=== PATIENT | male | born 1930 | race Caucasian/White ===

== ENCOUNTER 2016-06-01 12:43 | Emergency (ER) | payer MEDICARE ==
[~2016-06-01] VITALS: Ht 177.8 cm; Wt 86.2 kg
[~2016-06-01 12:43] MED LIST: ASP81TEC PO; ATOR80TA2 PO; ATR20T PO; CEFU500T34 PO; CLOP75TA PO; CPR500T PO; LACT1CAP8 PO; LISI-594 PO; LISI2.5T PO; LOVA20TA2 PO; LSNP10T PO; METO25TA2 PO; NIAC1CAP PO; NIAC500T6 PO; NITR0.3T6 SL; NTR.4SL SL; OXYC-12 PO; [UNRECOGNIZED DRUG - OTHER] PO
--- NOTE | 2016-06-01 13:03 | ED Upper Extremity ---
General Chief Complaint: Upper Extremity Stated Complaint: RIGHT ARM SKIN TEAR Source: patient Exam Limitations: no limitations History of Present Illness Time seen by provider: 13:01 Initial Comments to ER with a skin tear to the dorsal aspect of the right arm. States that he was working out at a golfing shed when he almost fell but put his arm out to catch him and in doing so for the skin on the back of his arm. He did not fall. Onset: just prior to arrival Severity: mild Pain/Injury Location: right arm Method of Injury: other Allergies and Home Medications Allergies Coded Allergies: No Known Drug Allergies (Unverified , 12/05/10) Home Medications Aspirin 81 Mg Tabec 81 MG PO DAILY (Reported) HOLD THIS MED TODAY!! RESTART THIS MED Saturday02/12/13 Clopidogrel Bisulfate 75 Mg Tablet 75 MG PO DAILY (Reported) Lisinopril 10 Mg Tab 10 MG PO DAILY (Reported) Lovastatin 20 Mg Tablet 20 MG PO DAILY WITH SUPPER (Reported) Metoprolol Tartrate 25 Mg Tablet 25 MG PO BID (Reported) Niacin/Inositol Niacinate 1 Each Capsule 500 MG PO HS (Reported) Nitroglycerin 0.4 Mg Tab 0 SL PRN (Reported) 1 TAB EVERY 5 MINUTES X 3 DOSES NEEDED FOR CHEST PAIN Constitutional: see HPI EENTM: see HPI Respiratory: no symptoms reported Cardiovascular: no symptoms reported Genitourinary: no symptoms reported Musculoskeletal: no symptoms reported Skin: see HPI Psychiatric/Neurological: No Symptoms Reported Past Ggpjudo-Czgoqq-Rctiuj Hx Patient Social History Alcohol Use: Denies Use Recreational Drug Use: No Smoking Status: Never a Smoker Former Smoker/When Quit: Apr 15, 1968 2nd Hand Smoke Exposure: No Recent Foreign Travel: No Contact w/Someone Who Travel: No Recent Hopitalizations: No Immunizations Up To Date Tetanus Booster (TDap): Less than 5yrs Date of Pneumonia Vaccine: Jan 13, 2012 Date of Influenza Vaccine: Dec 15, 2012 Seasonal Allergies Seasonal Allergies: No Surgeries HX Surgeries: Yes Surgeries: Coronary Stent, Defibrillator, Gallbladder, Pacemaker Respiratory Hx Respiratory Disorders: No Cardiovascular Hx Cardiac Disorders: Yes Cardiac Disorders: Coronary Artery Disease, Heart Attack, Hypertension Neurological Hx Neurological Disorders: Yes Neurological Disorders: Vertigo Reproductive System Hx Reproductive Disorders: No Genitourinary Hx Genitourinary Disorders: No Gastrointestinal Hx Gastrointestinal Disorders: No Musculoskeletal Hx Musculoskeletal Disorders: No Endocrine Hx Endocrine Disorders: No HEENT HX ENT Disorders: No Cancer Hx Cancer: No Psychosocial Hx Psychiatric Problems: No Integumentary HX Skin/Integumentary Disorder: No Blood Transfusions Hx Blood Disorders: No Physical Exam Vital Signs Capillary Refill : General Appearance: WD/WN no apparent distress HEENT: PERRL/EOMI normal ENT inspection Neck: non-tender full range of motion Respiratory: no respiratory distress no accessory muscle use Gastrointestinal: normal bowel sounds non tender Shoulder: normal inspection non-tender Elbow/Forearm: non-tender, Right (superficial skin tear without tenderness to the dorsal aspect of the right arm about 3 cm in length closed with Mastisol and Steri-Strips then covered with nonadherent gauze and a gauze roll) Hand: normal inspection, non-tender, Right Neurologic/Psychiatric: alert normal mood/affect oriented x 3 Skin: normal color warm/dry Laceration Repair : Suture Size: 5-0 Departure Pneumonia Admission Notes Tetanus is up-to-date within the past 5-10 years she states. Impression Impression: Primary Impression: Skin tear Disposition: 01 HOME, SELF-CARE Condition: Stable Departure-Patient Inst. Decision time for Depature: 13:03 Referrals: LAURI MORRELL MD (PCP/Family) Primary Care Physician Patient Instructions: NO INSTRUCTIONS GIVEN Add. Discharge Instructions: 1. Return to ER for any concerns 2. Take the bandage off tomorrow leaving the Steri-Strips in place until they fall off on their own in about a week 3. Return to ER for any concerns All discharge instructions reviewed with patient and/or family. Voiced understanding. SAMANTHA BOBBY APRN Jun 01, 2016 13:03
[2016-06-01 13:54] VITALS: BP 110/70
== END 2016-06-01 13:54 | disposition home or self-care (01) ==
LOC: EDUNIT# 12:43 → ER 12:48
DX: S41.111A Laceration without foreign body of right upper arm, initial encounter (principal); I25.10 Atherosclerotic heart disease of native coronary artery without angina pectoris; I10 Essential (primary) hypertension; Z79.82 Long term (current) use of aspirin; Z79.02 Long term (current) use of antithrombotics/antiplatelets; Z79.899 Other long term (current) drug therapy; Z95.810 Presence of automatic (implantable) cardiac defibrillator; Z95.5 Presence of coronary angioplasty implant and graft; W45.8XXA Other foreign body or object entering through skin, initial encounter; Y92.39 Other specified sports and athletic area as the place of occurrence of the external cause; Y99.8 Other external cause status

== ENCOUNTER 2017-06-21 15:18 | Emergency (ER) | payer MEDICARE ==
[~2017-06-21] VITALS: Ht 180.3 cm; Wt 90.7 kg
[2017-06-21] MEDS ORDERED: ONDANSETRON 4 MG/2 ML (SDV) Z0FRAN ONE (15:26)
[2017-06-21 15:34] LABS: BASOPHILS % (AUTO) 0 % (0-10); EOSINOPHILS % (AUTO) 0 % (0-10); HEMATOCRIT 40 % (40-54); HEMOGLOBIN 14.1 G/DL (13.3-17.7); LYMPHOCYTES # (AUTO) 1.3 X 10^3 (1.0-4.0); LYMPHOCYTES % (AUTO) 12 % (12-44); MEAN CORPUSCULAR HEMOGLOBIN 33 PG (25-34); MEAN CORPUSCULAR HGB CONC 35 G/DL (32-36); MEAN CORPUSCULAR VOLUME 94 FL (80-99); MEAN PLATELET VOLUME 8.7 FL (7.4-10.4); MONOCYTES # (AUTO) 0.8 X 10^3 (0.0-1.0); MONOCYTES % (AUTO) 7 % (0-12); NEUTROPHILS # (AUTO) 9.4 X 10^3 (1.8-7.8); NEUTROPHILS % (AUTO) 81 % (42-75); PLATELET COUNT 177 10^3/uL (130-400); RED BLOOD COUNT 4.24 10^6/uL (4.35-5.85); RED CELL DISTRIBUTION WIDTH 13.1 % (10.0-14.5); WHITE BLOOD COUNT 11.7 10^3/uL (4.3-11.0)
--- NOTE | 2017-06-21 15:36 | ED Head Injury ---
General Stated Complaint: FALL/HEAD INJ Source: patient Exam Limitations: no limitations History of Present Illness Date Seen by Provider: Jun 21, 2017 Time Seen by Provider: 15:33 Initial Comments Brought to ER by his son with whom he lives with reports of being covered in blood. Patient had been out in the shop according to son when the son noticed that he had been out there for 2 long. He went out to check on Rico when Rico came pulling up a golf cart with his head covered in blood. Unknown what happened but Rico does not recall anything, he does not know where he is at currently. Large hematoma just above the left eye, GCS 13. He is on aspirin and Plavix. Occurred: this evening Severity: moderate Method of Injury: unknown Loss of Consciousness: no loss of consciousness Allergies and Home Medications Allergies Coded Allergies: No Known Drug Allergies (Unverified , 12/05/10) Home Medications Aspirin 81 Mg Tabec, 81 MG PO DAILY, (Reported) HOLD THIS MED TODAY!! RESTART THIS MED Saturday02/12/13 Clopidogrel Bisulfate 75 Mg Tablet, 75 MG PO DAILY, (Reported) Lisinopril 10 Mg Tab, 10 MG PO DAILY, (Reported) Lovastatin 20 Mg Tablet, 20 MG PO DAILY WITH SUPPER, (Reported) Metoprolol Tartrate 25 Mg Tablet, 25 MG PO BID, (Reported) Niacin/Inositol Niacinate 1 Each Capsule, 500 MG PO HS, (Reported) Nitroglycerin 0.4 Mg Tab, 0 SL PRN, (Reported) 1 TAB EVERY 5 MINUTES X 3 DOSES NEEDED FOR CHEST PAIN Patient Home Medication List Home Medication List Reviewed: Yes Constitutional: see HPI Eyes: No Symptoms Reported Ears, Nose, Mouth, Throat: no symptoms reported Respiratory: no symptoms reported Cardiovascular: no symptoms reported Genitourinary: no symptoms reported Musculoskeletal: no symptoms reported Skin: no symptoms reported Psychiatric/Neurological: No Symptoms Reported Endocrine: No Symptoms Reported Hematologic/Lymphatic: No Symptoms Reported Past Lnvqdnn-Uciaba-Rimpmt Hx Patient Social History 2nd Hand Smoke Exposure: No Recent Foreign Travel: No Contact w/Someone Who Travel: No Recent Hopitalizations: No Immunizations Up To Date Tetanus Booster (TDap): Less than 5yrs Date of Pneumonia Vaccine: Jan 13, 2012 Date of Influenza Vaccine: Dec 15, 2012 Seasonal Allergies Seasonal Allergies: No Surgeries Surgeries: Coronary Stent, Defibrillator, Gallbladder, Pacemaker Cardiovascular Cardiac Disorders: Coronary Artery Disease, Heart Attack, Hypertension Neurological Neurological Disorders: Vertigo Reproductive System Hx Reproductive Disorders: No Physical Exam Vital Signs Vital Signs - First Documented 06/21/17 15:35 Temp 97.6 Pulse 99 Resp 17 B/P (MAP) 154/73 (100) Pulse Ox 99 Capillary Refill : General Appearance: WD/WN, no apparent distress HEENT: PERRL/EOMI, normal ENT inspection, other (there is a large hematoma over the left eyebrow. Small skin tear without active bleeding at this time. Pupils are equal.) Neck: non-tender, full range of motion Cardiovascular: regular rate, rhythm, no murmur Respiratory: normal breath sounds, no respiratory distress, no accessory muscle use Gastrointestinal: normal bowel sounds, non tender, soft Extremities: normal range of motion, non-tender Psychiatric: alert, oriented x 3 Crainal Nerves: normal hearing, normal speech, PERRL Skin: normal color, warm/dry [place] Coma Score Best Eye Response: (3) Open to Voice Best Verbal Response: (4) Confused Conversation Best Motor Response: (6) Obeys Commands [place] Total: 13 Laceration Repair : Suture Size: 5-0 Progress/Results/Core Measures Results/Orders Lab Results My Orders Medications Given in ED Vital Signs/I&O Diagnostic Imaging Diagonstic Imaging: CT Comments RICO BLAIR MED REC#: [id number] PT STATUS: REG ER : 1930 PHYSICIAN: SAMANTHA QUILES APRN ADMIT DATE: 06/21/17/ER Draft Date of Exam:06/21/17 CT HEAD/CERVICAL SPINE WO PROCEDURE: CT head and CT cervical spine without contrast. TECHNIQUE: Multiple contiguous axial images were obtained through the brain and cervical spine without the use of intravenous contrast. Sagittal and coronal reformations through the cervical spine were then performed. INDICATION: Fall. Left frontal hematoma. COMPARISON: 08/25/13. FINDINGS: CT head: There is a large left frontal subcutaneous hematoma. No acute skull fracture. There is a 5 x 5 mm hyperdense focus along the right posterior margin of the midbrain which is new since prior examination and may represent a small focus of intracranial hemorrhage. It is difficult to fully ascertain if this is intraparenchymal or within the basilar cisterns. No additional foci of intracranial hemorrhage. CT cervical spine: No acute fracture or traumatic malalignment. Multilevel degenerative disc disease is present. No high-grade spinal stenosis. There is tczm-fu-zkvnlaof spinal stenosis at C5-C6 due to disc bulge and ligamentum flavum thickening. No cervical lymphadenopathy. Thyroid is normal. IMPRESSION: 1. Small focus of acute intracranial hemorrhage along the right posterolateral aspect of the midbrain. It is difficult to ascertain if this is intra-axial or extra-axial in position. A followup CT head in the next 24 hours is advised to assess stability. 2. Large left frontal scalp hematoma. No skull fracture. 3. No acute fracture or malalignment in the cervical spine. Findings were called to Samantha Quiles by Dr. Lam Jacques at 4:24 PM on 06/21/2017. Dictated on workstation # [id number] Dict: 06/21/17 1612 Trans: 06/21/17 1628 NATANAEL [id number] Interpreted by: LAM JACQUES MD Electronically signed by: NAME: RICO BLAIR MED REC#: [id number] PT STATUS: REG ER : 1930 PHYSICIAN: SAMANTHA QUILES BAGGAGE SCREENER ADMIT DATE: 06/21/17/ER Draft Date of Exam:06/21/17 CHEST 1 VIEW, AP/PA ONLY PATIENT HISTORY: Altered mental status, dizziness, and nausea, found down. TECHNIQUE: Single frontal view of the chest COMPARISON: 09/13/2014 FINDINGS: Lung volumes are normal. There is stable moderate cardiomegaly. The left-sided AICD is in stable position. There are mild interstitial opacities bilaterally. No pneumothorax is seen. Degenerative changes are seen in the acromioclavicular joints bilaterally. IMPRESSION: 1. Cardiomegaly with mild interstitial edema. Dictated on workstation # [id number] Dict: 06/21/17 1624 Trans: 06/21/17 1625 CVB [id number] Interpreted by: MABLE REYES MD Electronically signed by: Departure Communication (Admissions) Progress Notes 1642- GCS 13. Blood pressure 140/80. Chest x-ray read out as interstitial edema but there is no dyspnea or shortness of breath and his oxygen saturation adequate. Cervical collar will be removed at this time. Discussed the case with [facility] was on ICU diversion. I then discussed the case with [facility] emergency room Dr. Anderson who accepted the patient. Images will be clouded Impression Impression: Primary Impression: Intracranial hemorrhage Additional Impression: Scalp hematoma Disposition: SHT-TRM HOSP Condition: Stable Departure-Patient Inst. Referrals: LAURI MORRELL MD (PCP/Family) Primary Care Physician SAMANTHA QUILES APRN Jun 21, 2017 15:36
[2017-06-21 15:41] LABS: INR 1.1 (0.8-1.4); PROTHROMBIN TIME PATIENT 13.9 SEC (12.2-14.7)
[2017-06-21 15:51] LABS: ALBUMIN 4.1 GM/DL (3.2-4.5); BILIRUBIN,TOTAL 0.7 MG/DL (0.1-1.0); CALCIUM 8.9 MG/DL (8.5-10.1); CREATININE SERUM 1.74 MG/DL (0.60-1.30); TOTAL PROTEIN 7.1 GM/DL (6.4-8.2)
[2017-06-21] MEDS ORDERED: fentaNYL INJECTION 100 MCG/2 ML AMP ONE (15:51)
[2017-06-21] MEDS ORDERED: fentaNYL INJECTION 100 MCG/2 ML AMP IVP ONE (16:00)
[2017-06-21] MEDS ORDERED: PROMETHAZINE INJ 25 MG/ML (PHENERGAN) AMP IVP ONE (16:15)
--- NOTE | 2017-06-21 16:26 | Diagnostic Imaging Report ---
PATIENT HISTORY: Altered mental status, dizziness, and nausea, found down. TECHNIQUE: Single frontal view of the chest COMPARISON: 09/13/2014 FINDINGS: Lung volumes are normal. There is stable moderate cardiomegaly. The left-sided AICD is in stable position. There are mild interstitial opacities bilaterally. No pneumothorax is seen. Degenerative changes are seen in the acromioclavicular joints bilaterally. IMPRESSION: 1. Cardiomegaly with mild interstitial edema. Dictated by: Dictated on workstation # [id number]
--- NOTE | 2017-06-21 16:29 | Diagnostic Imaging Report ---
PROCEDURE: CT head and CT cervical spine without contrast. TECHNIQUE: Multiple contiguous axial images were obtained through the brain and cervical spine without the use of intravenous contrast. Sagittal and coronal reformations through the cervical spine were then performed. INDICATION: Fall. Left frontal hematoma. COMPARISON: 08/25/13. FINDINGS: CT head: There is a large left frontal subcutaneous hematoma. No acute skull fracture. There is a 5 x 5 mm hyperdense focus along the right posterior margin of the midbrain which is new since prior examination and may represent a small focus of intracranial hemorrhage. It is difficult to fully ascertain if this is intraparenchymal or within the basilar cisterns. No additional foci of intracranial hemorrhage. CT cervical spine: No acute fracture or traumatic malalignment. Multilevel degenerative disc disease is present. No high-grade spinal stenosis. There is lseg-lz-jqpuxoij spinal stenosis at C5-C6 due to disc bulge and ligamentum flavum thickening. No cervical lymphadenopathy. Thyroid is normal. IMPRESSION: 1. Small focus of acute intracranial hemorrhage along the right posterolateral aspect of the midbrain. It is difficult to ascertain if this is intra-axial or extra-axial in location. A followup CT head in the next 24 hours is advised to assess stability. 2. Large left frontal scalp hematoma. No skull fracture. 3. No acute fracture or malalignment in the cervical spine. Findings were called to John Quiles by Dr. Lam Jacques at 4:24 PM on 06/21/2017. Dictated by: Dictated on workstation # [id number]
[2017-06-21] MEDS ORDERED: LIDOCAINE 2% 20 ML (XYLOCAINE) VIAL ONE (17:00)
[2017-06-21 17:28] VITALS: BP 158/107
--- OUTSIDE RECORDS SUMMARY | 2017-06-23 04:58 | XMS REPORT | Continuity of Care Document ---
Author Author [facility] Organization [facility] Address Unknown Phone Unavailable Allergies Active Description Code Type Severity Reaction Onset Reported/Identified Relationship to Patient Clinical Status Yes No Known Drug Allergies [id number] Drug Allergy Unknown N/A 12/05/2010 Medications There is no data. Problems Date Dx Coded Attending Type Code Diagnosis Diagnosed By 07/02/2012 Ot 272.4 HYPERLIPIDEMIA NEC/NOS 07/02/2012 Ot 276.51 DEHYDRATION 07/02/2012 Ot 401.9 HYPERTENSION NOS 07/02/2012 Ot 412 OLD MYOCARDIAL INFARCT 07/02/2012 Ot 414.01 CORONARY ATHEROSCLEROSIS OF [place] CORON 07/02/2012 Ot 558.9 NONINF GASTROENTERIT NEC 07/02/2012 Ot 584.9 ACUTE RENAL FAILURE, UNSPECIFIED 07/02/2012 Ot 780.4 DIZZINESS AND GIDDINESS 07/02/2012 Ot V15.82 HISTORY OF TOBACCO USE 07/02/2012 Ot V45.82 PERCUTANEOUS TRANSLUM CORON ANGIOPLASTY 07/15/2012 Ot 272.4 HYPERLIPIDEMIA NEC/NOS 07/15/2012 Ot 401.9 HYPERTENSION NOS 07/15/2012 Ot 410.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,OTH INFERIOR WALL,INI 07/15/2012 Ot 412 OLD MYOCARDIAL INFARCT 07/15/2012 Ot 414.01 CORONARY ATHEROSCLEROSIS OF [place] CORON 07/15/2012 Ot V15.82 HISTORY OF TOBACCO USE 07/15/2012 Ot V45.82 PERCUTANEOUS TRANSLUM CORON ANGIOPLASTY 07/18/2012 Ot 272.0 PURE HYPERCHOLESTEROLEM 07/18/2012 Ot 401.9 HYPERTENSION NOS 07/18/2012 Ot 410.42 AC MYOCRD INFRCT,OTH INFERIOR WALL,SUBSE 07/18/2012 Ot 414.01 CORONARY ATHEROSCLEROSIS OF [place] CORON 07/18/2012 Ot 780.2 SYNCOPE AND COLLAPSE 07/18/2012 Ot 780.4 DIZZINESS AND GIDDINESS 07/18/2012 Ot 873.41 OPEN WOUND OF CHEEK 07/18/2012 Ot E000.8 OTHER EXTERNAL CAUSE STATUS 07/18/2012 Ot E849.0 ACCIDENT IN HOME 07/18/2012 Ot E885.9 FALL FROM SLIPPING, TRIPPING, OR STUMBLI 07/18/2012 Ot V45.82 PERCUTANEOUS TRANSLUM CORON ANGIOPLASTY 10/16/2012 Ot 780.2 SYNCOPE AND COLLAPSE 10/27/2012 ALEXIS MOSQUEDA MD Ot 780.2 SYNCOPE AND COLLAPSE 12/16/2012 MICHAEL MYRICK FACC, LAUREN FACP CCDS Ot 272.4 HYPERLIPIDEMIA NEC/NOS 12/16/2012 MICHAEL MYRICK FACC, ALI FACP CCDS Ot 401.9 HYPERTENSION NOS 12/16/2012 MICHAEL MYRICK FACC, ALI FACP CCDS Ot 412 OLD MYOCARDIAL INFARCT 12/16/2012 MICHAEL MYRICK FACC, ALI FACP CCDS Ot 414.01 CORONARY ATHEROSCLEROSIS OF [place] CORON 12/16/2012 LAUREN RODRIGUEZ MD, FACC FACP CCDS Ot 433.10 CAROTID ARTERY OCCLUSION W O CEREBRAL IN 12/16/2012 MICHAEL MYRICK FACC ALI FACP CCDS Ot 433.30 MULT BILTRAL ARTERY OCCLUSION WO CEREBRA 12/16/2012 LAUREN RODRIGUEZ MD, FACC FACP CCDS Ot 780.4 DIZZINESS AND GIDDINESS 12/16/2012 LAUREN RODRIGUEZ MD, FACC FACP CCDS Ot 786.09 RESPIRATORY ABNORM NEC 12/16/2012 LAUREN RODRIGUEZ MD, FACC FACP CCDS Ot V45.82 PERCUTANEOUS TRANSLUM CORON ANGIOPLASTY 12/16/2012 MICHAEL MYRICK FACC ALI FACP CCDS Ot V58.63 LONG-TERM(CURRENT)USE OF ANTIPLATELET/AN 12/16/2012 LAUREN RODRIGUEZ MD, FACC FACP CCDS Ot V58.66 LONG-TERM (CURRENT) USE OF ASPIRIN 12/16/2012 MICHAEL MYRICK FACC ALI FACP CCDS Ot V58.69 OT MED,LT,CURRENT USE 02/11/2013 MICHAEL MYRICK FACC ALI FACP CCDS Ot 272.4 HYPERLIPIDEMIA NEC/NOS 02/11/2013 MICHAEL MYRICK FACC, ALI FACP CCDS Ot 401.9 HYPERTENSION NOS 02/11/2013 MICHAEL MYRICK FACC, ALI FACP CCDS Ot 412 OLD MYOCARDIAL INFARCT 02/11/2013 MICHAEL MYRICK FACC, ALI FACP CCDS Ot 414.01 CORONARY ATHEROSCLEROSIS OF [place] CORON 02/11/2013 MICHAEL MYRICK FACC ALI FACP CCDS Ot 414.8 CHR ISCHEMIC HRT DIS NEC 02/11/2013 MICHAEL MYRICK FACC, LAUREN BARRY CCDS Ot 433.10 CAROTID ARTERY OCCLUSION W O CEREBRAL IN 02/11/2013 MICHAEL MYRICK FACC, LAUREN FACP CCDS Ot 780.4 DIZZINESS AND GIDDINESS 02/11/2013 MICHAEL MYRICK FACC, LAUREN FACP CCDS Ot V53.32 FITTING ADJUST AUTOMAT IMPLANT CARDIAC 02/11/2013 LAUREN RODRIGUEZ MD, FACC FACP CCDS Ot V58.63 LONG-TERM(CURRENT)USE OF ANTIPLATELET/AN 02/11/2013 MICHAEL MYRICK FACC, LAUREN FACP CCDS Ot V58.66 LONG-TERM (CURRENT) USE OF ASPIRIN 02/11/2013 LAUREN RODRIGUEZ MD, FACC, FACP CCDS Ot V58.69 OTH MED,LT,CURRENT USE 08/25/2013 REBA HERNANDEZ PROPERTY CONDITION ASSESSOR Ot 780.4 DIZZINESS AND GIDDINESS 08/25/2013 REBA HERNANDEZ PROPERTY CONDITION ASSESSOR Ot 781.2 ABNORMALITY OF GAIT 08/25/2013 REBA HERNANDEZ PROPERTY CONDITION ASSESSOR Ot 787.02 NAUSEA ALONE 09/13/2014 OSVALDO CHAVEZ MD Ot 401.9 HYPERTENSION NOS 09/13/2014 OSVALDO CHAVEZ MD Ot 414.01 CORONARY ATHEROSCLEROSIS OF [place] CORON 09/13/2014 OSVALDO CHAVEZ MD Ot 584.9 ACUTE RENAL FAILURE, UNSPECIFIED 09/13/2014 OSVALDO CHAVEZ MD Ot 780.79 OTH MALAISE FATIGUE 09/13/2014 OSVALDO CHAVEZ MD Ot V15.82 HISTORY OF TOBACCO USE 03/08/2015 LEO DE PAZ PROPERTY CONDITION ASSESSOR Ot E78.5 03/08/2015 LEO DE PAZ L PROPERTY CONDITION ASSESSOR Ot I10 03/08/2015 BAIJADIEL LEO L PROPERTY CONDITION ASSESSOR Ot I25.10 03/08/2015 BALDEV LEO L PROPERTY CONDITION ASSESSOR Ot I25.5 03/08/2015 LEO DE PAZ L PROPERTY CONDITION ASSESSOR Ot I77.9 03/25/2015 LEO DE PAZ L PROPERTY CONDITION ASSESSOR Ot E78.5 03/25/2015 JARRED DE PAZHER L PROPERTY CONDITION ASSESSOR Ot I10 03/25/2015 BALDEV LEO L PROPERTY CONDITION ASSESSOR Ot I25.10 03/25/2015 LEO DE PAZ L PROPERTY CONDITION ASSESSOR Ot I25.5 03/25/2015 BAIMA, LEO L PROPERTY CONDITION ASSESSOR Ot I77.9 03/31/2015 BAIMA, LEO L PROPERTY CONDITION ASSESSOR Ot E78.5 03/31/2015 BAIMA, LEO L PROPERTY CONDITION ASSESSOR Ot I10 03/31/2015 BAIMA, LEO L PROPERTY CONDITION ASSESSOR Ot I25.10 03/31/2015 BAIMA, LEO L PROPERTY CONDITION ASSESSOR Ot I25.5 03/31/2015 BAIMA, LEO L PROPERTY CONDITION ASSESSOR Ot I77.9 06/01/2016 SUSSY BRAUN PROPERTY CONDITION ASSESSOR Ot 272.4 HYPERLIPIDEMIA NEC/NOS 06/01/2016 SUSSY BRAUN PROPERTY CONDITION ASSESSOR Ot 414.01 CORONARY ATHEROSCLEROSIS OF [place] CORON 06/01/2016 Ot 780.2 SYNCOPE AND COLLAPSE 06/01/2016 Ot 780.2 SYNCOPE AND COLLAPSE 06/01/2016 BAIJADIEL LEO L PROPERTY CONDITION ASSESSOR Ot 397.0 TRICUSPID VALVE DISEASE 06/01/2016 BAIJADIEL LEO L PROPERTY CONDITION ASSESSOR Ot 414.8 CHR ISCHEMIC HRT DIS NEC 06/01/2016 BAIJADIEL LEO L PROPERTY CONDITION ASSESSOR Ot 424.0 MITRAL VALVE DISORDER 06/01/2016 BAILEO DUVALL L PROPERTY CONDITION ASSESSOR Ot E78.5 HYPERLIPIDEMIA, UNSPECIFIED 06/01/2016 BAIMA LEO L PROPERTY CONDITION ASSESSOR Ot I10 ESSENTIAL (PRIMARY) HYPERTENSION 06/01/2016 CHARISSEJADIEL LEO L PROPERTY CONDITION ASSESSOR Ot I25.10 ATHSCL HEART DISEASE OF [place] CORONARY 06/01/2016 CHARISSELEO DUVALL L PROPERTY CONDITION ASSESSOR Ot I25.5 ISCHEMIC CARDIOMYOPATHY 06/01/2016 CHARISSEJARRED DUVALLHER L PROPERTY CONDITION ASSESSOR Ot I77.9 DISORDER OF ARTERIES AND ARTERIOLES, UNS 06/01/2016 SAMANTHA BOBBY APRN Ot I10 ESSENTIAL (PRIMARY) HYPERTENSION 06/01/2016 SAMANTHA BOBBY APRN Ot I25.10 ATHSCL HEART DISEASE OF [place] CORONARY 06/01/2016 SAMANTHA BOBBY APRN Ot S41.111A LACERATION W/O FOREIGN BODY OF RIGHT UPP 06/01/2016 SAMANTHA BOBBY APRN Ot W45.8XXA OTH FOREIGN BODY OR OBJECT ENTERING THRO 06/01/2016 SAMANTHA BOBBY APRN Ot Y92.39 OTH SPORTS AND ATHLETIC AREA PLACE 06/01/2016 SAMANTHA BOBBY APRN Ot Y99.8 OTHER EXTERNAL CAUSE STATUS 06/01/2016 SAMANTHA BOBBY APRN Ot Z79.02 FCI (CURRENT) USE OF ANTITHROMBOTI 06/01/2016 SAMANTHA BOBBY APRN Ot Z79.82 FCI (CURRENT) USE OF ASPIRIN 06/01/2016 SAMANTHA BOBBY APRN Ot Z79.899 OTHER FCI (CURRENT) DRUG THERAPY 06/01/2016 SAMANTHA BOBBY APRN Ot Z95.5 PRESENCE OF CORONARY ANGIOPLASTY IMPLANT 06/01/2016 SAMANTHA BOBBY APRN Ot Z95.810 PRESENCE OF AUTOMATIC (IMPLANTABLE) CARD 06/04/2016 SAMANTHA BOBBY APRN Ot I10 ESSENTIAL (PRIMARY) HYPERTENSION 06/04/2016 SAMANTHA BOBBY APRN Ot I25.10 ATHSCL HEART DISEASE OF [place] CORONARY 06/04/2016 SAMANTHA BOBBY APRN Ot S41.111A LACERATION W/O FOREIGN BODY OF RIGHT UPP 06/04/2016 SAMANTHA BOBBY APRN Ot W45.8XXA OT FOREIGN BODY OR OBJECT ENTERING THRO 06/04/2016 SAMANTHA BOBBY APRN Ot Y92.39 OT SPORTS AND ATHLETIC AREA PLACE 06/04/2016 SAMANTHA BOBBY APRN Ot Y99.8 OTHER EXTERNAL CAUSE STATUS 06/04/2016 SAMANTHA BOBBY APRN Ot Z79.02 ASBESTOS REMOVAL SUPERVISOR (CURRENT) USE OF ANTITHROMBOTI 06/04/2016 SAMANTHA BOBBY APRN Ot Z79.82 ASBESTOS REMOVAL SUPERVISOR (CURRENT) USE OF ASPIRIN 06/04/2016 SAMANTHA BOBBY APRN Ot Z79.899 OTHER FCI (CURRENT) DRUG THERAPY 06/04/2016 SAMANTHA BOBBY APRN Ot Z95.5 PRESENCE OF CORONARY ANGIOPLASTY IMPLANT 06/04/2016 SAMANTHA BOBBY APRN Ot Z95.810 PRESENCE OF AUTOMATIC (IMPLANTABLE) CARD Procedures Code Description Performed By Performed On 00.40 PROCEDURE ON SINGLE VESSEL 07/12/2012 00.45 INSERTION OF ONE VASCULAR STENT 07/12/2012 00.66 PERCUTANEOUS TRANSLUMINAL CORONARY ANGIO 07/12/2012 36.06 CORONARY ARTERY STENT INSERTION NON-DRUG 07/12/2012 37.22 LEFT HEART CARDIAC CATH 07/12/2012 88.53 LT HEART ANGIOCARDIOGRAM 07/12/2012 88.56 CORONAR ARTERIOGR-2 CATH 07/12/2012 Results There is no data. Encounters ACCT No. Visit Date/Time Discharge Status Pt. Type Provider Facility Loc./Unit Complaint [id number] 06/01/2016 12:48:00 06/01/2016 13:54:00 DIS Emergency BOBBYSAMANTHA APRN [facility] ER RIGHT ARM SKIN TEAR [id number] 03/04/2015 09:53:00 03/04/2015 23:59:59 CLS Outpatient LEO DE PAZ [facility] CARD CAD [id number] 09/13/2014 12:08:00 09/13/2014 15:31:00 DIS Emergency SCOTT MYRICK, OSVALDO Lim [facility] ER WEAKNESS LOW BP [id number] 08/25/2013 09:08:00 08/25/2013 12:50:00 DIS Outpatient REBA HERNANDEZP [facility] SDC DIZZINESS,NAUSEA, UNSTEADY GAIT [id number] 02/10/2013 08:31:00 02/11/2013 10:50:00 DIS Outpatient MICHAEL MYRICK FACC, LAUREN BARRY CCDS [facility] CATH CAD,ASCHEMIC CARDIOMYOPATHY [id number] 12/16/2012 12:20:00 12/16/2012 20:08:00 DIS Outpatient MICHAEL MYRICK FACC, LAUREN BARRY CCDS [facility] CATH CAD,HTN, DIZZINESS,HYPERLIPIDEMIA,SOB,FATIGUE [id number] 11/13/2012 10:43:00 11/13/2012 23:59:59 CLS Outpatient LEO DE PAZ [facility] CARD ISCHEMIC CARDIOMYOPATHY [id number] 07/29/2012 08:34:00 10/27/2012 00:01:00 DIS Outpatient ALEXIS MOSQUEDA MD [facility] CARD SYNCOPE [id number] 08/15/2012 08:00:00 08/15/2012 23:59:59 CLS Outpatient SUSSY BRUAN [facility] LAB CAD,HLP [id number] 10/28/2012 11:00:00 Document Registration [id number] 10/17/2012 12:00:00 Document Registration [id number] 07/18/2012 12:39:00 Document Registration [id number] 07/17/2012 10:50:00 Document Registration [id number] 07/13/2012 11:56:00 Document Registration [id number] 06/29/2012 03:05:00 Document Registration
== END 2017-06-21 17:36 | disposition short-term general hospital (02) ==
LOC: EDUNIT# 15:18 → ER 15:20
DX: S06.9X9A Unspecified intracranial injury with loss of consciousness of unspecified duration, initial encounter (principal); R40.2142 Coma scale, eyes open, spontaneous, at arrival to emergency department; R40.2252 Coma scale, best verbal response, oriented, at arrival to emergency department; R40.2362 Coma scale, best motor response, obeys commands, at arrival to emergency department; I25.10 Atherosclerotic heart disease of native coronary artery without angina pectoris; I25.2 Old myocardial infarction; I10 Essential (primary) hypertension; Z95.5 Presence of coronary angioplasty implant and graft; Z95.810 Presence of automatic (implantable) cardiac defibrillator; Z79.82 Long term (current) use of aspirin; Z79.02 Long term (current) use of antithrombotics/antiplatelets; W19.XXXA Unspecified fall, initial encounter
CPT/HCPCS: 36415; 70450; 71045; 72125; 80053; 85025; 85610; 85730; 93005

== ENCOUNTER 2017-10-13 17:42 | Emergency (ER) | payer MEDICARE ==
[~2017-10-13] VITALS: Ht 182.9 cm; Wt 79.4 kg
[2017-10-13] MEDS ORDERED: NS IV 1000 ML 1,000 ML IV SCH (18:36)
--- NOTE | 2017-10-13 18:46 | ED Neurological Problem ---
General Chief Complaint: Altered Mental Status Stated Complaint: HALLUCINATIONS,HEAD INJ IN JUNE Nursing Triage Note: AMBULATED TO ROOM 07 WITHOUT DIFFICULTY. COMPLAINS OF SEEING PEOPLE WHO ARE NOT THERE STARTING LAST NIGHT. BRAIN BLEED IN JUNE FROM A FALL. Nursing Sepsis Screen: No Definite Risk Source: patient, family Exam Limitations: clinical condition History of Present Illness Date Seen by Provider: Oct 13, 2017 Time Seen by Provider: 18:24 Initial Comments Family and a chief complaint that he today started having hallucination which is new for him. He was talking to 3 people who were in the room and told 1 to get out and he said that they left but then his daughter came in and they all left. His daughter says she suffered a fall and traumatic head injury in June 2017, about 3-4 months ago and had a bleed on the brain at that time. He spent some time in the hospital. Is followed by his installation drafter Dr. Knight and the daughter thought that his posterior be restarted on his blood thinner patient does not have an says he is not supposed to be on it and has not been taking it. He does have lovastatin and recently had his lisinopril taken away and switched for metoprolol for his primary care provider because he was having some fast heart rate and high blood pressure. He says he was on metoprolol past and was taken off of it because he did not tolerate the lightheaded dizziness it was causing. He also has a history of vertigo for many years. Today he's a little more confused than usual although he's been having confusion since June and hallucinations are new. Is also complained of having a hard time having a bowel movement but he did have one today and he told his daughter and a hard time urinating. He has also been in the sun a lot and she is afraid he might have gotten dehydrated as well. Couple weeks ago patient was diagnosed recommend spotted fever and put on antibiotics. He completed that course several days ago. Allergies and Home Medications Allergies Coded Allergies: No Known Drug Allergies (Unverified , 12/05/10) Home Medications Aspirin 81 Mg Tabec, 81 MG PO DAILY, (Reported) HOLD THIS MED TODAY!! RESTART THIS MED Saturday02/12/13 Clopidogrel Bisulfate 75 Mg Tablet, 75 MG PO DAILY, (Reported) Lovastatin 20 Mg Tablet, 20 MG PO DAILY WITH SUPPER, (Reported) Metoprolol Tartrate 25 Mg Tablet, 25 MG PO BID, (Reported) Niacin/Inositol Niacinate 1 Each Capsule, 500 MG PO HS, (Reported) Nitroglycerin 0.4 Mg Tab, 0 SL PRN, (Reported) 1 TAB EVERY 5 MINUTES X 3 DOSES NEEDED FOR CHEST PAIN Patient Home Medication List Home Medication List Reviewed: Yes Review of Systems Constitutional: No chills, No diaphoresis, No fever, No malaise, No weakness Eyes: Denies Blindness, Denies Blurred Vision, Denies Pain Ears, Nose, Mouth, Throat: denies ear pain, denies ear discharge Respiratory: No cough, No short of breath, No wheezing Cardiovascular: No chest pain, No edema; Hx of Intervention; No palpitations, No syncope; vascular heart diseas Gastrointestinal: No abdominal pain; constipation; No diarrhea, No nausea, No vomiting Genitourinary: No discharge, No dysuria; hesitancy Musculoskeletal: No back pain, No joint pain Skin: No pruritus, No rash Psychiatric/Neurological: Cognitive Dysfunction; Denies Headache, Denies Numbness, Denies Tingling Past Ekdduvi-Wcfzuw-Fdickm Hx Patient Social History Alcohol Use: Denies Use Recreational Drug Use: No 2nd Hand Smoke Exposure: No Recent Foreign Travel: No Contact w/Someone Who Travel: No Recent Infectious Disease Expo: No Recent Hopitalizations: No Immunizations Up To Date Tetanus Booster (TDap): Less than 5yrs Date of Pneumonia Vaccine: Jan 13, 2012 Date of Influenza Vaccine: Dec 15, 2012 Seasonal Allergies Seasonal Allergies: No Past Medical History Surgeries: No Coronary Stent, Defibrillator, Gallbladder, Pacemaker Respiratory: No Cardiac: Yes Coronary Artery Disease, Heart Attack, Hypertension Neurological: Yes (BRAIN BLEED FROM A FALL JUNE2017) Vertigo Reproductive Disorders: No Gastrointestinal: No Musculoskeletal: No Endocrine: No Cancer: No Psychosocial: No Integumentary: No Blood Disorders: No Physical Exam Vital Signs Vital Signs - First Documented 10/13/17 18:11 Temp 98.7 Pulse 68 Resp 16 B/P (MAP) 168/99 (122) Pulse Ox 96 O2 Delivery Room Air Capillary Refill : Less Than 3 Seconds General Appearance: WD/WN, no apparent distress HEENT: PERRL/EOMI, TMs normal; No pharynx normal (oropharynx is dry mildly); pharyngeal erythema, tonsillar exudate, other (clear rhinorrhea) Neck: non-tender, full range of motion, supple, normal inspection Respiratory: chest non-tender, lungs clear, normal breath sounds, no respiratory distress, no accessory muscle use Cardiovascular: normal peripheral pulses, regular rate, rhythm, no edema Peripheral Pulses: 2+ Radial Pulses (R), 2+ Radial Pulses (L) Gastrointestinal: normal bowel sounds, non tender, soft, no organomegaly Back: normal inspection, no CVA tenderness Extremities: normal range of motion, no pedal edema, no calf tenderness, normal capillary refill Neurologic/Psychiatric: head lineman II-XII nml as tested, no motor/sensory deficits, alert, normal mood/affect, oriented x 3 (person place and time but not situation ) Crainal Nerves: normal hearing, normal speech, PERRL Coordination/Gait: normal finger to nose, normal gait Motor/Sensory: no motor deficit, no sensory deficit, no pronator drift Skin: normal color, warm/dry Stroke Onset of Symptoms Onset of Symptoms: No Symptoms onset unknown: No NIH Stroke Scale Assessment Select: Initial Level of Consciousness: 0=Alert (0), Level of Consciousness- Questions: 0=Answers both month/age (0), LOC Commands: 0=Performs both tasks (0) , Gaze: Normal (0), Visual Osborne: 0=No visual loss (0), Facial Movement ( Facial Paresis): 0=Normal symmetrical mnt (0), Motor Function-Arms Right: 0=No drift (0), Motor Function-Arms Left: 0=No drift (0), Motor Function-Legs Right: 0=No drift (0), Motor Function-Legs Left: 0=No drift (0), Limb Ataxia: 0=Absent (0), Sensory: 0=Normal:no loss (0), Best Language: 0=No aphasia (0), Dysarthria : 0=Normal (0), Extinction & Inattention: 0=No abnormality (0), Total: 0 IV - TPa Received IV - TPa Procedure Performed?: No Procedures/Interventions Suture Size: 5-0 Progress/Results/Core Measures Results/Orders Lab Results Laboratory Tests Test 10/13/17 18:30 10/13/17 18:45 10/13/17 20:00 Range/Units White Blood Count 10.8 4.3-11.0 10^3/uL Red Blood Count 4.33 L 4.35-5.85 10^6/uL Hemoglobin 14.2 13.3-17.7 G/DL Hematocrit 41 40-54 % Mean Corpuscular Volume 94 80-99 FL Mean Corpuscular Hemoglobin 33 25-34 PG Mean Corpuscular Hemoglobin Concent 35 32-36 G/DL Red Cell Distribution Width 14.1 10.0-14.5 % Platelet Count 157 130-400 10^3/uL Mean Platelet Volume 9.0 7.4-10.4 FL Neutrophils (%) (Auto) 78 H 42-75 % Lymphocytes (%) (Auto) 14 12-44 % Monocytes (%) (Auto) 7 0-12 % Eosinophils (%) (Auto) 0 0-10 % Basophils (%) (Auto) 0 0-10 % Neutrophils # (Auto) 8.5 H 1.8-7.8 X 10^3 Lymphocytes # (Auto) 1.5 1.0-4.0 X 10^3 Monocytes # (Auto) 0.8 0.0-1.0 X 10^3 Eosinophils # (Auto) 0.0 0.0-0.3 10^3/uL Basophils # (Auto) 0.0 0.0-0.1 10^3/uL Thyroid Stimulating Hormone (TSH) 1.05 0.35-4.94 UIU/ML Monoscreen NEGATIVE NEGATIVE Group A Streptococcus Screen NEGATIVE NEGATIVE Sodium Level 137 135-145 MMOL/L Potassium Level 4.4 3.6-5.0 MMOL/L Chloride Level 105 98-107 MMOL/L Carbon Dioxide Level 22 21-32 MMOL/L Anion Gap 10 5-14 MMOL/L Blood Urea Nitrogen 22 H 7-18 MG/DL Creatinine 1.71 H 0.60-1.30 MG/DL Estimat Glomerular Filtration Rate 38 BUN/Creatinine Ratio 13 Glucose Level 121 H 70-105 MG/DL Calcium Level 8.9 8.5-10.1 MG/DL Total Bilirubin 1.3 H 0.1-1.0 MG/DL Aspartate Amino Transf (AST/SGOT) 18 5-34 U/L Alanine Aminotransferase (ALT/SGPT) 12 0-55 U/L Alkaline Phosphatase 104 40-136 U/L Ammonia 25 11-32 UMOL/L Troponin I < 0.30 <0.30 NG/ML Total Protein 6.4 6.4-8.2 GM/DL Albumin 3.7 3.2-4.5 GM/DL Urine Color YELLOW Urine Clarity CLEAR Urine pH 5 5-9 Urine Specific [place] 1.025 H 1.016-1.022 Urine Protein 2+ H NEGATIVE Urine Glucose (UA) NEGATIVE NEGATIVE Urine Ketones NEGATIVE NEGATIVE Urine Nitrite NEGATIVE NEGATIVE Urine Bilirubin NEGATIVE NEGATIVE Urine Urobilinogen 1 NORMAL MG/DL Urine Leukocyte Esterase 3+ H NEGATIVE Urine RBC (Auto) 1+ H NEGATIVE Urine RBC NONE /HPF Urine WBC 0-2 /HPF Urine Squamous Epithelial Cells 5-10 /HPF Urine Renal Epithelial Cells NONE /HPF Urine Crystals NONE /LPF Urine Bacteria FEW H /HPF Urine Casts PRESENT /LPF Urine Hyaline Casts RARE /LPF Urine Mucus SMALL H /LPF Urine Culture Indicated NO My Orders Orders - EARLENE SKINNER Ammonia (10/13/17 18:36) Cbc With Automated Diff (10/13/17 18:36) Comprehensive Metabolic Panel (10/13/17 18:36) Monotest (10/13/17 18:36) Rapid Strep A Screen (10/13/17 18:36) Ua Culture If Indicated (10/13/17 18:36) Chest Pa/Lat (2 View) (10/13/17 18:36) Saline Lock/Iv-Start (10/13/17 18:36) Ns Iv 1000 Ml (Sodium Chloride 0.9%) (10/13/17 18:36) Ct Head Wo (10/13/17 18:36) Ekg Tracing (10/13/17 18:53) Continuous Ekg Monitoring (10/13/17 18:53) Troponin I (10/13/17 18:53) Thyroid Stimulating Hormone (10/13/17 18:55) Vital Signs/I&O 10/13/17 18:11 Temp 98.7 Pulse 68 Resp 16 B/P (MAP) 168/99 (122) Pulse Ox 96 O2 Delivery Room Air Blood Pressure Mean: 122 Progress Progress Note : Time: 18:49 Progress Note Recent onset hallucinations with only change in medication being metoprolol makes this more likely delirium and first thought would be infectious source. Labs. We'll get a CT of his brain considering he had a history of recent hemorrhage. He is not on his Plavix or aspirin either one. Initial vital signs are okay. Doesn't have a fever. He does have a history of hypothyroidism. We'll check his TSH. We'll look for infection. Intoxication/ withdrawal seems unlikely since he doesn't drink. We'll check electrolytes and fluid balance and give him a liter fluids to start. Could be related to his recent diagnosis of a [place] spotted fever however he has recently completed those antibiotics and this would be a delayed onset of encephalopathy. If we can't find a better explanation it may be reasonable to put him on an extended course of doxycycline. No external trauma on the head seen or Hurley sign or hemotympanum any him but we'll get a CT of his head case he has an occult fall. Final he has some nonspecific signs of an upper respiratory tract infection with exudative tonsils and clear discharge from the nose. Echocardiogram [address] Knight shows ejection fraction 45-50%. Distal septal hypokinesis. 2012 cardiac defibrillator placed [address] Knight. Multivessel coronary artery disease 6070% stenosis left main and 80% stenosis of the distal left anterior descending and 80-90% stenosis of the proximal portion of the 2 obtuse marginal branches. Impairment of a global left systolic function with an ejection fraction 30-35%. Initial ECG Impression Date: Oct 13, 2017 Initial ECG Impression Time: 19:13 Initial ECG Rate: 64 Initial ECG Rhythm: Normal Sinus Initial ECG Intervals: Normal Initial ECG Impression: Normal, Nonspecific Changes Initial ECG Comparisson: Unchanged Comment No ST elevation or depression Diagnostic Imaging Diagonstic Imaging: Xray Plain Films/CT/US/NM/MRI: chest (2v) Comments No acute cardiopulmonary process noted. Reviewed: Reviewed by Me Diagonstic Imaging: CT Plain Films/CT/US/NM/MRI: head (without contrast) Comments VIA [facility]. [place], [place] NAME: RICO BLAIR Johnny MED REC#: [id number] PT STATUS: REG ER : 1930 PHYSICIAN: EARLENE SKINNER MD ADMIT DATE: 10/13/17/ER Draft Date of Exam:10/13/17 CT HEAD WO TECHNIQUE: Multiple contiguous axial images were obtained through the brain without the use of intravenous contrast. INDICATION: Mental status change, altered mental status. EXAMINATION: CT brain without contrast, 10/13/2017. COMPARISON: 06/21/2017 FINDINGS: There is no evidence for acute hemorrhage or infarct. No mass, mass effect or midline shift is noted. There is no hydrocephalus. Diffuse atrophy similar to previous. Dolichoectasia of the vessels similar to prior as well with atherosclerotic disease noted. There is no acute sinus disease. Paranasal sinuses unremarkable. No calvarial fractures visualized. IMPRESSION: 1. Chronic changes. No superimposed acute abnormality. Dictated on workstation # [id number] Dict: 10/13/171944 Trans: 10/13/171948 NATANAEL [id number] Interpreted by: ROSA JOHN MD Electronically signed by: Reviewed: Reviewed by Me Departure Impression Primary Impression: Hallucination, visual Additional Impression: Delirium Disposition: 01 HOME, SELF-CARE Condition: Stable Departure-Patient Inst. Decision time for Depature: 20:54 Referrals: LAURI MORRELL MD (PCP/Family) Primary Care Physician Patient Instructions: Delirium (Confusion) (DC) Add. Discharge Instructions: Get some fluids to drink like water or sports drinks and discourage being out in the sun for very long. . Plan to follow up with the primary care provider this week. All discharge instructions reviewed with patient and/or family. Voiced understanding. Copy Copies To 1: LAURI MORRELL MD, TITUS J Oct 13, 2017 18:46
[2017-10-13 18:48] LABS: BASOPHILS % (AUTO) 0 % (0-10); EOSINOPHILS % (AUTO) 0 % (0-10); HEMATOCRIT 41 % (40-54); HEMOGLOBIN 14.2 G/DL (13.3-17.7); LYMPHOCYTES # (AUTO) 1.5 X 10^3 (1.0-4.0); LYMPHOCYTES % (AUTO) 14 % (12-44); MEAN CORPUSCULAR HEMOGLOBIN 33 PG (25-34); MEAN CORPUSCULAR HGB CONC 35 G/DL (32-36); MEAN CORPUSCULAR VOLUME 94 FL (80-99); MONOCYTES # (AUTO) 0.8 X 10^3 (0.0-1.0); MONOCYTES % (AUTO) 7 % (0-12); NEUTROPHILS # (AUTO) 8.5 X 10^3 (1.8-7.8); NEUTROPHILS % (AUTO) 78 % (42-75); PLATELET COUNT 157 10^3/uL (130-400); RED BLOOD COUNT 4.33 10^6/uL (4.35-5.85); RED CELL DISTRIBUTION WIDTH 14.1 % (10.0-14.5); WHITE BLOOD COUNT 10.8 10^3/uL (4.3-11.0)
[2017-10-13 19:09] LABS: ALBUMIN 3.7 GM/DL (3.2-4.5); BILIRUBIN,TOTAL 1.3 MG/DL (0.1-1.0); CALCIUM 8.9 MG/DL (8.5-10.1); CREATININE SERUM 1.71 MG/DL (0.60-1.30); POTASSIUM 4.4 MMOL/L (3.6-5.0); TOTAL PROTEIN 6.4 GM/DL (6.4-8.2)
--- NOTE | 2017-10-13 19:50 | Diagnostic Imaging Report ---
TECHNIQUE: Multiple contiguous axial images were obtained through the brain without the use of intravenous contrast. INDICATION: Mental status change, altered mental status. EXAMINATION: CT brain without contrast, 10/13/2017. COMPARISON: 06/21/2017 FINDINGS: There is no evidence for acute hemorrhage or infarct. No mass, mass effect or midline shift is noted. There is no hydrocephalus. Diffuse atrophy similar to previous. Dolichoectasia of the vessels similar to prior as well with atherosclerotic disease noted. There is no acute sinus disease. Paranasal sinuses unremarkable. No calvarial fractures visualized. IMPRESSION: 1. Chronic changes. No superimposed acute abnormality. Dictated by: Dictated on workstation # [id number]
[2017-10-13 20:11] LABS: BILIRUBIN,URINE NEGATIVE (NEGATIVE); CLARITY,URINE CLEAR; COLOR,URINE YELLOW; GLUCOSE, URINE (UA) NEGATIVE (NEGATIVE); KETONES,URINE NEGATIVE (NEGATIVE); LEUKOCYTE ESTERASE ,URINE 3+ (NEGATIVE); NITRITE,URINE NEGATIVE (NEGATIVE); PH,URINE 5 (5-9); PROTEIN,URINE 2+ (NEGATIVE); UROBILINOGEN,URINE 1 MG/DL (NORMAL)
[2017-10-13 20:32] LABS: BACTERIA,URINE FEW /HPF; HYALINE CASTS, URINE RARE /LPF; WBC,URINE 0-2 /HPF
--- NOTE | 2017-10-13 20:52 | Diagnostic Imaging Report ---
INDICATION: Altered mental status. EXAMINATION: Two-view chest, 10/13/2017. COMPARISON: 06/21/2017. FINDINGS: Two views of the chest. Left-sided pacemaker is stable. Heart is minimally prominent. The pulmonary vascular structures are unremarkable. There is atelectasis at the bases. Lungs are otherwise clear. No effusions. No pneumothorax. IMPRESSION: Chronic change. No acute abnormality. Dictated by: Dictated on workstation # [id number]
[2017-10-13 21:09] VITALS: BP 141/79
== END 2017-10-13 21:09 | disposition home or self-care (01) ==
LOC: EDUNIT# 17:42 → ER 17:43
DX: R44.1 Visual hallucinations (principal); R41.0 Disorientation, unspecified; I25.10 Atherosclerotic heart disease of native coronary artery without angina pectoris; I25.2 Old myocardial infarction; I10 Essential (primary) hypertension; Z79.82 Long term (current) use of aspirin; Z95.5 Presence of coronary angioplasty implant and graft; Z95.810 Presence of automatic (implantable) cardiac defibrillator
CPT/HCPCS: 36415; 70450; 71046; 80053; 81000; 82140; 84443; 84484; 85025; 86308; 87430; 93005; 96360

== ENCOUNTER 2018-08-15 16:11 | Outpatient (RCR) | payer MEDICARE | END 2018-08-15 17:13 | disposition home or self-care (01) | PROVIDERS: ATTEND Family Medicine | DX: R53.1 Weakness (principal) ==

== ENCOUNTER 2018-11-21 14:16 | Outpatient (CLI) | payer MEDICARE ==
[~2018-11-21] VITALS: Ht 182.9 cm; Wt 74.8 kg
[2018-11-21] MEDS ORDERED: NS IV 1000 ML 1,000 ML ONE (14:19)
[2018-11-21 14:30] VITALS: BP 114/71
[2018-11-21] MEDS ORDERED: NS IV 1000 ML 1,000 ML IV ONE (14:30)
[2018-11-21 14:42] LABS: BILIRUBIN,URINE NEGATIVE (NEGATIVE); CLARITY,URINE CLEAR; COLOR,URINE YELLOW; GLUCOSE, URINE (UA) NEGATIVE (NEGATIVE); KETONES,URINE 1+ (NEGATIVE); LEUKOCYTE ESTERASE ,URINE 1+ (NEGATIVE); NITRITE,URINE NEGATIVE (NEGATIVE); PH,URINE 5 (5-9); PROTEIN,URINE 1+ (NEGATIVE); UROBILINOGEN,URINE 1 MG/DL (NORMAL)
[2018-11-21 14:52] LABS: HEMOGLOBIN 16.1 G/DL (13.3-17.7); MEAN PLATELET VOLUME 9.4 FL (7.4-10.4); RED CELL DISTRIBUTION WIDTH 14.5 % (10.0-14.5); WHITE BLOOD COUNT 7.3 10^3/uL (4.3-11.0)
[2018-11-21 14:55] LABS: BACTERIA,URINE NEGATIVE /HPF; RBC,URINE RARE /HPF; WBC,URINE RARE /HPF
[2018-11-21 15:15] LABS: ALBUMIN 3.9 GM/DL (3.2-4.5); BILIRUBIN,TOTAL 1.2 MG/DL (0.1-1.0); CALCIUM 9.5 MG/DL (8.5-10.1); POTASSIUM 4.9 MMOL/L (3.6-5.0); TOTAL PROTEIN 6.9 GM/DL (6.4-8.2)
== END 2018-11-21 16:50 | disposition home or self-care (01) ==
LOC: SDC 14:16
PROVIDERS: ATTEND Nurse Practitioner Family
DX: I95.9 Hypotension, unspecified (principal)
CPT/HCPCS: 36415; 80053; 81000; 85027; 96360; 96367

== ENCOUNTER → 2018-12-22 | Outpatient (CLI) | payer MEDICARE ==
[2018-12-22 15:50] LABS: CREATININE SERUM 1.88 MG/DL (0.60-1.30)
== END ==
LOC: RAD 15:13
PROVIDERS: ATTEND Family Medicine
DX: R41.3 Other amnesia (principal)
CPT/HCPCS: 36415; 82565; 84520

== ENCOUNTER → 2018-12-26 | Outpatient (CLI) | payer MEDICARE ==
--- NOTE | 2018-12-26 13:57 | Diagnostic Imaging Report ---
PROCEDURE: CT head without contrast. TECHNIQUE: Multiple contiguous axial images were obtained through the brain without the use of intravenous contrast. Auto Exposure Controls were utilized during the CT exam to meet ALARA standards for radiation dose reduction. INDICATION: Progressive weakness and memory loss. Comparison made with prior examination of 10/13/2017. FINDINGS: There is prominence of the ventricles and sulci. There is no hydrocephalus or cerebral edema. There is no midline shift or mass-effect. There is no intracranial mass, hemorrhage, or extra-axial fluid collection. There is some diffuse decreased attenuation of the periventricular white matter which is nonspecific. The visualized paranasal sinuses and mastoid air cells are clear. There are no regional areas of decreased attenuation appreciated to suggest an acute CVA. IMPRESSION: 1. No acute intracranial process. 2. Age-appropriate atrophy. 3. Decreased attenuation of the periventricular white matter which is nonspecific, however, likely reflects senescent change and/or chronic small vessel ischemic disease. If there is high clinical concern for an acute CVA further evaluation with MRI should be considered. Dictated by: Dictated on workstation # [id number]
== END ==
LOC: RAD 13:28
PROVIDERS: ATTEND Family Medicine
DX: G31.1 Senile degeneration of brain, not elsewhere classified (principal)
CPT/HCPCS: 70450

== ENCOUNTER 2019-01-06 01:39 | Inpatient (IN) | payer MEDICARE ==
[~2019-01-06] VITALS: Ht 182.9 cm; Wt 73.7 kg
[2019-01-06] MEDS ORDERED: LACTATED RINGERS 1,000 ML IV ONE (01:47)
[2019-01-06] MEDS ORDERED: LACTATED RINGERS 1,000 ML IV STA (01:47)
[2019-01-06] MEDS ORDERED: ONDANSETRON 4 MG/2 ML (SDV) Z0FRAN IVP ONE (02:00)
[2019-01-06 02:18] LABS: BASOPHILS % (AUTO) 0 % (0-10); EOSINOPHILS % (AUTO) 0 % (0-10); HEMATOCRIT 47 % (40-54); HEMOGLOBIN 15.8 G/DL (13.3-17.7); LYMPHOCYTES # (AUTO) 1.7 X 10^3 (1.0-4.0); LYMPHOCYTES % (AUTO) 12 % (12-44); MEAN CORPUSCULAR HEMOGLOBIN 33 PG (25-34); MEAN CORPUSCULAR HGB CONC 33 G/DL (32-36); MEAN CORPUSCULAR VOLUME 98 FL (80-99); MEAN PLATELET VOLUME 8.5 FL (7.4-10.4); MONOCYTES # (AUTO) 0.7 X 10^3 (0.0-1.0); MONOCYTES % (AUTO) 4 % (0-12); NEUTROPHILS # (AUTO) 12.4 X 10^3 (1.8-7.8); NEUTROPHILS % (AUTO) 84 % (42-75); PLATELET COUNT 183 10^3/uL (130-400); RED CELL DISTRIBUTION WIDTH 14.9 % (10.0-14.5); WHITE BLOOD COUNT 14.8 10^3/uL (4.3-11.0)
[2019-01-06] MEDS ORDERED: DIVA125T32 PO ×2 (02:19)
[2019-01-06] MEDS ORDERED: LOVA20TA2 PO (02:19)
[2019-01-06] MEDS ORDERED: MIRT15TA6 PO ×2 (02:19)
[2019-01-06 02:42] LABS: ALBUMIN 4.2 GM/DL (3.2-4.5); BAND NEUTROPHILS 10 %; BILIRUBIN,TOTAL 1.8 MG/DL (0.1-1.0); CALCIUM 9.4 MG/DL (8.5-10.1); CREATININE SERUM 2.03 MG/DL (0.60-1.30); LYMPHOCYTES % (MANUAL) 15 %; MAGNESIUM 2.1 MG/DL (1.6-2.4); MONOCYTES % (MANUAL) 1 %; NEUTROPHILS % (MANUAL) 74 %; POTASSIUM 4.6 MMOL/L (3.6-5.0); TOTAL PROTEIN 7.6 GM/DL (6.4-8.2)
[2019-01-06 02:43] LABS: RBC MORPH NORMAL
[2019-01-06 02:47] LABS: VALPROIC ACID 32.9 UG/ML (50.0-100.0)
--- NOTE | 2019-01-06 04:45 | ED GI ---
General Chief Complaint: Abdominal/GI Problems Stated Complaint: N/V/D;PERICARDIAL EFFUSION;DEMENTIA/CONFUSSION Nursing Triage Note: N/V/D, WEAKNESS, CONFUSION Sepsis Screen: Possible Severe Sepsis Risk Source of Information: Family (DAUGHTER AND [id number]) Exam Limitations: Other (PT IS CONFUSED AND UNABLE TO GIVE ANY RELIABLE INFORMATION) History of Present Illness Date Seen by Provider: Jan 06, 2019 Time Seen by Provider: 01:57 Initial Comments PT ARRIVES VIA POV, AND REQUIRES WHEELCHAIR ON ARRIVAL PT LIVES WITH SON AND [id number] PT HAS HAD NAUSEA/VOMITING/DIARRHEA AND GENERALIZED WEAKNESS SINCE YESTERDAY HAS VOMITED AT LEAST 5 TIMES TODAY, AND HAS HAD AT LEAST 5 EPISODES OF DIARRHEA TODAY--AND HAS BEEN INCONTINENT OF STOOL FOR MOST OF THOSE EPISODES, AND HAS VOMITED ALL OVER BED AND HIMSELF WELL PT DENIES ABDOMINAL PAIN NO FEVER LAST VOID IS UNKNOWN PT HAS NOT EATEN TODAY PT HAS CHRONIC INTERMITTENT DIARRHEA AND CONSTIPATION 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 NO SICK CONTACTS OR SUSPICIOUS FOODS TOLD FAMILY THAT HE HAD NOT HAD A BM "IN 3 WEEKS", SO GAVE HIM MILK OF MAGNESIA 3 DAYS AGO, DID NOT HAVE BM UNTIL YESTERDAY PT HAS ONGOING AND PROGRESSIVE PROBLEMS WITH CONFUSION, HAS HAD HALLUCINATIONS, GENERALIZED WEAKNESS AND LOW BLOOD PRESSURE PT HAS BEEN ON MIRTAZIPINE FOR SEVERAL MONTHS, AND WAS STARTED ON DIVALPROEX 12/26/18, BUT DID NOT TAKE FIRST DOSE UNTIL 12/30/18 PCP: DR. MORRELL, LAST VISIT 12/26/18 Allergies and Home Medications Allergies Coded Allergies: No Known Drug Allergies (Unverified , 12/05/10) Home Medications Aspirin 81 Mg Tabec, 81 MG PO DAILY, (Reported) HOLD THIS MED TODAY!! RESTART THIS MED Saturday02/12/13 Past Uawiwqe-Cmovot-Irezmr Hx Patient Social History Alcohol Use: Denies Use Recreational Drug Use: No Smoking Status: Never a Smoker 2nd Hand Smoke Exposure: No Recent Foreign Travel: No Contact w/Someone Who Travel: No Recent Infectious Disease Expo: No Recent Hopitalizations: No Physical Abuse: No Sexual Abuse: No Mistreated: No Fear: No Immunizations Up To Date Tetanus Booster (TDap): Less than 5yrs Date of Pneumonia Vaccine: Jan 13, 2012 Date of Influenza Vaccine: Dec 15, 2012 Seasonal Allergies Seasonal Allergies: No Past Medical History Surgeries: Yes Coronary Stent, Defibrillator, Gallbladder, Pacemaker Respiratory: No Cardiac: Yes Coronary Artery Disease, Heart Attack, Hypertension Neurological: Yes (BRAIN BLEED FROM A FALL JUNE2017) Dementia, Vertigo Reproductive Disorders: No Genitourinary: No Gastrointestinal: No Musculoskeletal: No Endocrine: No HEENT: No Cancer: No Psychosocial: No Integumentary: No Blood Disorders: No Physical Exam Vital Signs Vital Signs - First Documented 01/06/19 01:56 Temp 36.4 Pulse 119 Resp 18 B/P (MAP) 123/86 (98) Pulse Ox 94 O2 Delivery Room Air Capillary Refill : Less Than 3 Seconds Height/Weight/BMI Height: 6'0.00" Weight: 164lbs. 14.4oz. 74.355442ft; 23.00 BMI Method:Estimated Focused Exam Lactate Level 01/06/19 02:05: Lactic Acid Level 4.85*H 01/06/19 04:08: Lactic Acid Level 2.80*H Lactic Acid Level Laboratory Tests Test 01/06/19 02:05 01/06/19 04:08 Lactic Acid Level 4.85 MMOL/L (0.50-2.00) *H 2.80 MMOL/L (0.50-2.00) *H Procedures/Interventions Suture Size: 5-0 Progress/Results/Core Measures Results/Orders Lab Results Laboratory Tests Test 01/06/19 02:05 01/06/19 04:08 Range/Units White Blood Count 14.8 H 4.3-11.0 10^3/uL Red Blood Count 4.81 4.35-5.85 10^6/uL Hemoglobin 15.8 13.3-17.7 G/DL Hematocrit 47 40-54 % Mean Corpuscular Volume 98 80-99 FL Mean Corpuscular Hemoglobin 33 25-34 PG Mean Corpuscular Hemoglobin Concent 33 32-36 G/DL Red Cell Distribution Width 14.9 H 10.0-14.5 % Platelet Count 183 130-400 10^3/uL Mean Platelet Volume 8.5 7.4-10.4 FL Neutrophils (%) (Auto) 84 H 42-75 % Lymphocytes (%) (Auto) 12 12-44 % Monocytes (%) (Auto) 4 0-12 % Eosinophils (%) (Auto) 0 0-10 % Basophils (%) (Auto) 0 0-10 % Neutrophils # (Auto) 12.4 H 1.8-7.8 X 10^3 Lymphocytes # (Auto) 1.7 1.0-4.0 X 10^3 Monocytes # (Auto) 0.7 0.0-1.0 X 10^3 Eosinophils # (Auto) 0.0 0.0-0.3 10^3/uL Basophils # (Auto) 0.0 0.0-0.1 10^3/uL Neutrophils % (Manual) 74 % Lymphocytes % (Manual) 15 % Monocytes % (Manual) 1 % Band Neutrophils 10 % Blood Morphology Comment NORMAL Prothrombin Time 14.0 12.2-14.7 SEC INR Comment 1.0 0.8-1.4 Activated Partial Thromboplast Time 27 24-35 SEC Sodium Level 140 135-145 MMOL/L Potassium Level 4.6 3.6-5.0 MMOL/L Chloride Level 103 98-107 MMOL/L Carbon Dioxide Level 24 21-32 MMOL/L Anion Gap 13 5-14 MMOL/L Blood Urea Nitrogen 21 H 7-18 MG/DL Creatinine 2.03 H 0.60-1.30 MG/DL Estimat Glomerular Filtration Rate 31 BUN/Creatinine Ratio 10 Glucose Level 163 H 70-105 MG/DL Lactic Acid Level 4.85 *H 2.80 *H 0.50-2.00 MMOL/L Calcium Level 9.4 8.5-10.1 MG/DL Corrected Calcium 9.2 8.5-10.1 MG/DL Magnesium Level 2.1 1.6-2.4 MG/DL Total Bilirubin 1.8 H 0.1-1.0 MG/DL Aspartate Amino Transf (AST/SGOT) 21 5-34 U/L Alanine Aminotransferase (ALT/SGPT) 9 0-55 U/L Alkaline Phosphatase 101 40-136 U/L Total Protein 7.6 6.4-8.2 GM/DL Albumin 4.2 3.2-4.5 GM/DL Amylase Level 138 H 25-125 U/L Lipase 27 8-78 U/L Valproic Acid (Depakene) Level 32.9 L 50.0-100.0 UG/ML Micro Results Microbiology 01/06/19 Influenza Types A,B Antigen (GOLDIE) - Final, Complete My Orders Orders - AYO,BHAVIK K DO Ed Iv/Invasive Line Start (01/06/19 01:47) Ekg Tracing (01/06/19 01:47) Monitor-Rhythm Ecg Trace Only (01/06/19 01:47) Amylase (01/06/19 01:47) Cbc With Automated Diff (01/06/19 01:47) Comprehensive Metabolic Panel (01/06/19 01:47) Lipase (01/06/19 01:47) Magnesium (01/06/19 01:47) Protime With Inr (01/06/19 01:47) Partial Thromboplastin Time (01/06/19 01:47) Ua Culture If Indicated (01/06/19 01:47) Ed Iv/Invasive Line Start (01/06/19 01:47) Lactated Ringers (Lr 1000 Ml Iv Solution (01/06/19 01:47) Ondansetron Injection (Zofran Injectio (01/06/19 02:00) Lactated Ringers (Lr 1000 Ml Iv Solution (01/06/19 01:47) Lactic Acid Analyzer (01/06/19 02:04) Valproic Acid (01/06/19 02:04) Blood Culture (01/06/19 02:04) Manual Differential (01/06/19 02:05) Ct Abdomen/Pelvis Wo (01/06/19 02:49) Influenza A And B Antigens (01/06/19 03:08) Medications Given in ED Current Medications Medications Dose Ordered Sig/Anne Route Start Time Stop Time Status Last Admin Dose Admin Lactated Ringer's 1,000 ml @ 0 mls/hr Q0M ONCE IV 01/06/19 01:47 01/06/19 01:49 DC 01/06/19 02:13 0 MLS/HR Ondansetron HCl 4 mg ONCE ONCE IVP 01/06/19 02:00 01/06/19 02:01 DC 01/06/19 02:13 4 MG Vital Signs/I&O 01/06/19 01/06/19 01:56 02:44 Temp 36.4 36.4 Pulse 119 104 Resp 18 12 B/P (MAP) 123/86 (98) 101/71 Pulse Ox 94 93 O2 Delivery Room Air Room Air Blood Pressure Mean: 81 Departure Departure-Patient Inst. Referrals: LAURI MORRELL MD (PCP) Primary Care Physician REBA HERNANDEZ (Family) Primary Care Physician BHAVIK ROLLINS DO Jan 06, 2019 04:45
--- NOTE | 2019-01-06 05:05 | NUR ---
PT INCONTINENT STOOL, LINENS CHANGED, PT CLEANED. TOLERATED WELL.
[2019-01-06 05:42] VITALS: BP 145/61
[2019-01-06] MEDS ORDERED: ONDANSETRON 4 MG/2 ML (SDV) Z0FRAN IV PRN (05:45)
[2019-01-06 06:53] LABS: BASOPHILS % (AUTO) 0 % (0-10); EOSINOPHILS % (AUTO) 0 % (0-10); HEMATOCRIT 45 % (40-54); HEMOGLOBIN 14.8 G/DL (13.3-17.7); LYMPHOCYTES # (AUTO) 0.5 X 10^3 (1.0-4.0); LYMPHOCYTES % (AUTO) 5 % (12-44); MEAN CORPUSCULAR HEMOGLOBIN 33 PG (25-34); MEAN CORPUSCULAR HGB CONC 33 G/DL (32-36); MEAN CORPUSCULAR VOLUME 98 FL (80-99); MEAN PLATELET VOLUME 8.7 FL (7.4-10.4); MONOCYTES # (AUTO) 0.7 X 10^3 (0.0-1.0); MONOCYTES % (AUTO) 8 % (0-12); NEUTROPHILS % (AUTO) 87 % (42-75); PLATELET COUNT 137 10^3/uL (130-400); RED CELL DISTRIBUTION WIDTH 14.9 % (10.0-14.5); WHITE BLOOD COUNT 9.2 10^3/uL (4.3-11.0)
[2019-01-06] MEDS: D5 1/2 NS W/KCL 20 MEQ/L 1,000 ML IV SCH ×2 (06:57→14:40)
[2019-01-06] MEDS: PANTOPRAZOLE 40 MG (PROTONIX) VIAL IV SCH (06:58)
[2019-01-06 07:03] LABS: ALBUMIN 3.7 GM/DL (3.2-4.5); BILIRUBIN,TOTAL 1.7 MG/DL (0.1-1.0); CALCIUM 8.9 MG/DL (8.5-10.1); CREATININE SERUM 1.75 MG/DL (0.60-1.30); POTASSIUM 4.4 MMOL/L (3.6-5.0); TOTAL PROTEIN 6.7 GM/DL (6.4-8.2)
--- NOTE | 2019-01-06 07:20 | Diagnostic Imaging Report ---
PROCEDURE: CT abdomen and pelvis without contrast. TECHNIQUE: Multiple contiguous axial images were obtained through the abdomen and pelvis without the use of intravenous contrast. Auto Exposure Controls were utilized during the CT exam to meet ALARA standards for radiation dose reduction. INDICATION: Nausea, vomiting, diarrhea, weakness, and confusion. FINDINGS: There is a large pericardial effusion measuring up to 2 cm in thickness. There are patchy bibasilar infiltrates and tiny bilateral pleural effusions. The liver is normal in size without focal lesions. Gallbladder surgically absent. There is no biliary duct dilatation. Spleen is normal. The pancreas and adrenal glands are unremarkable. There is some atrophy of the kidneys. The aorta is nonaneurysmal. Bowel gas pattern is nonspecific. Bladder is normal. There is moderate amount of fluid throughout the colon. There are degenerative changes in the spine. IMPRESSION: Large pericardial effusion measuring up to 2 cm in thickness. Patchy bibasilar infiltrates with trace bilateral pleural effusions. Large amount of fluid in the colon may reflect a diarrheal state. Recommend clinical correlation. Dictated by: Dictated on workstation # [id number]
[2019-01-06 07:25] VITALS: BP 110/58
--- NOTE | 2019-01-06 07:32 | Diagnostic Imaging Report ---
INDICATION: Nausea and vomiting. Comparison made with prior examination 10/13/2017. FINDINGS: There is cardiomegaly. Mediastinum is unremarkable. Pacemaker overlies left hemithorax. There is no pleural effusion, pneumothorax or pneumonia. IMPRESSION: No acute cardiopulmonary abnormality. Cardiomegaly. Dictated by: Dictated on workstation # [id number]
--- NOTE | 2019-01-06 08:42 | History & Physical ---
History of Present Illness History of Present Illness Reason for visit/HPI PT IS AN 88 Y/O MALE WHO IS WELL KNOWN TO ME FROM CLINIC. RICO HAS BEEN DECLINING OVER THE PAST 6 MONTHS WITH INCREASING CONFUSION AND GENERALIZED WEAKNESS. HIS WORK-UP THUS FAR HAS BEEN NEGATIVE FOR ACUTE STROKE, BUT HAS HAD HEAD TRAUMA WITH SUBDURAL BLEED ABOUT A YEAR AGO WHICH SEEMED TO PROPAGATE THE SLOW DECLINE RICO HAS BEEN EXPERIENCING. HE PRESENTED TO THE EMERGENCY DEPARTMENT AFTER HAVING SEVERE NAUSEA, EMESIS AND DIARRHEA. IN THE EMERGENCY DEPARTMENT HE HAD A CT SCAN OF THE ABDOMEN AND PELVIS WHICH SHOWED AN INFILTRATE IN LUNG BASES BILATERALLY AND AN INCIDENTAL FINDING OF A LARGE PERICARDIAL EFFUSION (known previously on admission to hospital last year in [place] - no changed significantly per Dr. Rico). THE CHEST XRAY WAS NEGATIVE FOR ANY ACUTE FINDINGS. Date of Admission Jan 06, 2019 at 04:15 Date Seen by a Provider: Jan 06, 2019 Time Seen by a Provider: 08:30 I consulted on this patient on 01/06/19 08:30 Attending Physician Lauri Mae MD Admitting Physician Lauri Mae MD Consult DR. 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[employer]) Alcohol Use: Denies Use Recreational Drug Use: No Smoking Status: Never a Smoker 2nd Hand Smoke Exposure: No Physical Abuse Screen: No Sexual Abuse: No Recent Foreign Travel: No Contact w/other who traveled: No Recent Hopitalizations: No Recent Infectious Disease Expo: No Immunizations Up To Date Tetanus Booster (TDap): Less than 5yrs Date of Pneumonia Vaccine: Jan 13, 2012 Date of Influenza Vaccine: Dec 15, 2012 Seasonal Allergies Seasonal Allergies: No Past Medical History Surgeries: Coronary Stent, Defibrillator, Gallbladder, Pacemaker Currently Using CPAP: No Currently Using BIPAP: No Cardiac: Coronary Artery Disease, Heart Attack, Hypertension Neurological: Dementia, Vertigo Reproductive: No Sexually Transmitted Disease: No HIV/AIDS: No Loss of Vision: Denies Hearing Impairment: Hard of Hearing History of Blood Disorders: No Adverse Reaction to Blood Rivero: No Family History Reviewed Nursing Family Hx Heart Disease, Hypertension Review of Systems Constitutional: No chills, No fever; malaise, weakness, weight loss EENTM: hearing loss; No hoarseness, No throat pain Respiratory: No cough, No dyspnea on exertion, No short of breath Cardiovascular: No chest pain, No edema, No palpitations Gastrointestinal: No abdominal pain, No constipation; diarrhea, loss of appetite (DECREASED - ), nausea, vomiting Genitourinary: incontinence Musculoskeletal: no symptoms reported Skin: no symptoms reported; No lesions, No rash Psychiatric/Neurological: Anxiety, Weakness, Other (CONFUSION) All Other Systems Reviewed Negative Unless Noted: Yes Physical Exam Vital Signs Vital Signs - First Documented 01/06/19 01:56 Temp 36.4 Pulse 119 Resp 18 B/P (MAP) 123/86 (98) Pulse Ox 94 O2 Delivery Room Air Capillary Refill : Less Than 3 SecondsLess Than 3 Seconds Height, Weight, BMI Height: 6'0.00" Weight: 164lbs. 14.4oz. 74.295180ku; 22.03 BMI Method:Estimated General Appearance: No Apparent Distress, Thin Eyes: Bilateral Eye Normal Inspection, Bilateral Eye PERRL, Bilateral Eye EOMI HEENT: PERRL/EOMI, Pharynx Normal, Other (DENTURES IN PLACE) Neck: Full Range of Motion, Non Tender, Supple Respiratory: Chest Non Tender, Lungs Clear, Normal Breath Sounds, No Accessory Muscle Use, No Respiratory Distress Cardiovascular: Regular Rate, Rhythm, No Edema, Systolic Murmur Gastrointestinal: Non Tender, Soft, Abnormal Bowel Sounds (DECREASED BOWEL SOUNDS THROUGHOUT) Rectal: Deferred Back: Normal Inspection, No CVA Tenderness Extremity: Normal Capillary Refill, Non Tender, No Calf Tenderness, No Pedal Edema Neurologic/Psychiatric: Alert, No Motor/Sensory Deficits, Normal Mood/Affect, quantity surveyor II-XII Norm as Tested, Other (ORIENTED TO PERSON, PLACE, NOT TIME) Skin: Normal Color, Warm/Dry Lymphatic: No Adenopathy Assessment/Plan Assessment and Plan VIRAL GASTROENTERITIS PNEUMONIA PERICARDIAL EFFUSION WEAKNESS PROGRESSIVE DEMENTIA HYPOTENSION LACTIC ACIDOSIS ACUTE ON CHRONIC RENAL FAILURE STAGE 3 LEUKOCYTOSIS VIRAL GASTROENTERITIS - CONTINUE WITH FLUIDS - ADVANCE TO BLAND DIET SINCE THE NAUSEA AND EMESIS HAVE RESOLVED PNEUMONIA (SEEN ON CT SCAN - CLEAR ON CXR) - START ON PNEUMONIA PROTOCOL WITH ROCEPHIN AND AZITHROMYCIN IV 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 RICO'S REPORT HE WOULD NOT RECOMMEND ANY ACUTE TREATMENT FROM A SURGICAL STANDPOINT, HE RECOMMENDS MEDICAL MANAGEMENT ONLY DUE TO RICO'S AGE AND MENTAL DECLINE. WEAKNESS AND PROGRESSIVE DEMENTIA - WILL INITIATE THERAPY TODAY - DEMENTIA IS SUPPORTIVE CARE ONLY AT THIS TIME. I WILL TALK TO HIS FAMILY ABOUT A SHORT TERM GROUP HOME CARE IF THEY ARE SO INCLINED. - CONTINUE WITH DEPAKOTE, STOP REMERON AT THIS TIME. HYPOTENSION - CHRONIC - SUPPORT WITH IV FLUIDS LACTIC ACIDOSIS - IMPROVED WITH HYDRATION - CONTINUE WITH FLUIDS, WILL DECREASE DOSE TOMORROW. ACUTE ON CHRONIC RENAL FAILURE STAGE 3 - IMPROVED WITH IV FLUIDS - CHECK LABS TOMORROW. LEUKOCYTOSIS - IMPROVED WITH HYDRATION. Admission Diagnosis VIRAL GASTROENTERITIS PNEUMONIA PERICARDIAL EFFUSION WEAKNESS PROGRESSIVE DEMENTIA HYPOTENSION LACTIC ACIDOSIS ACUTE ON CHRONIC RENAL FAILURE STAGE 3 LEUKOCYTOSIS Admission Status: Inpatient Order (span 2 midnights) Reason for Inpatient Admission: INPT ADMISSION FOR VIRAL GASTROETERNITIS, LACTIC ACIDOSIS, RENAL FAILURE, PNEUMONIA AND PERICARDIAL EFFUSION, WILL REQUIRE 48-72 HOURS FOR TREATMENT/STABILIZATION AND TRANSITION TO ORAL TREATMENT Clinical Quality Measures DVT/VTE Risk/Contraindication: Risk Factor Score Per Nursin RFS Level Per Nursing on Admit: 4+=Very High LAURI MAE MD Jan 06, 2019 08:42
--- NOTE | 2019-01-06 08:51 | NUR ---
CALLED AND SPOKE WITH MALATHI REGARDING THE PATIENTS HOME MEDICATIONS. SHE HAD THE BOTTLES AND STATES HE IS TAKING THE MIRTAZAPINE AT HS AND STARTED THE DEPAKOTE BID ABOUT A WEEK AGO. SHE STATES HE IS NO LONGER TAKING THE LOVASTATIN, METOPROLOL XL 25MG, OR THE LEXAPRO THAT WAS FILLED IN NOVEMBER. SHE STATES HE IS NOT TAKING ANYTHING OTC, NO ASPIRIN ANYMORE EITHER.
[2019-01-06] MEDS ORDERED: AZITHROMYCIN INJECTION 500 MG in NS (IVPB) 250 ML IV SCH (09:00)
--- NOTE | 2019-01-06 09:04 | Consultation-Cardiology ---
HPI-Cardiology Cardiology Consultation: Date of Consultation 01/06/19 Time Seen by a Provider: 10:15 Date of Admission 01-05-19 Attending Physician Lauri Mae MD Admitting Physician Lauri Mae MD Consulting Physician Anna Rico MD HPI: Chief Complaint: Pericardial effusion Mr. Blair is an 88 year old male admitted to 406 from the ED. He is currently confused. He is able to tell me he is in [place], but then reported to me there was a new college here. He states he has been feeling "blah". Information has been obtain from a review of the chart. Per review he lives with his son and DIL. They reported in the ED he has had n/v/d starting on 01-05-19. They do not report any fever or chills. They do not report any CP. He does not report any CP or dyspnea. The family also reporting progressive confusion and gen weakness for which he has been following with his PCP. There is no family present at the bedside. The pt is pleasant and cooperative. Review of Systems-Cardiology Review of Systems Other comments The extent to which a ROS can be obtained is as per the HPI FJY-Qqyqaf-Nvnlbj Hx Patient Social History Alcohol Use: Denies Use Recreational Drug Use: No Smoking Status: Never a Smoker Former smoker/When Quit: Apr 15, 1968 2nd Hand Smoke Exposure: No Recent Foreign Travel: No Recent Infectious Disease Expo: No Hospitalization with Isolation: Denies Immunizations Up To Date Tetanus Booster (TDap): Less than 5yrs Date of Pneumonia Vaccine: Jan 13, 2012 Date of Influenza Vaccine: Dec 15, 2012 Past Medical History PMH As described under Assessment. Allergies and Home Medications Allergies Coded Allergies: No Known Drug Allergies (Unverified , 12/05/10) Home Medications Azithromycin 250 Mg Tablet, 250 MG PO DAILY Prescribed by: LAURI MAE on 01/12/19804 Divalproex Sodium 250 Mg Tablet.dr, 250 MG PO BID Prescribed by: LAURI MAE on 01/12/19804 Lactobacillus Acidophilus/Pect 1 Each Capsule, 2 EACH PO TIDWM Prescribed by: LAURI MAE on 01/12/19 08 Pantoprazole Sodium 40 Mg Tablet.dr, 40 MG PO DAILY Prescribed by: LAURI MAE on 01/12/19 08 Risperidone 0.25 Mg Tablet, 0.25 MG PO HS Prescribed by: LAURI MAE on 01/12/19804 Zinc Oxide 28 Gm Oint, 0 GM TOP NEEDED PRN for DIAPER CHANGE Prescribed by: LAURI MAE on 01/12/19804 Patient Home Medication List Home Medication List Reviewed: Yes Physical Exam-Cardiology Physical Exam Vital Signs/I&O Capillary Refill : Less Than 3 SecondsLess Than 3 Seconds Constitutional: other (Oriented to self only) HEENT: hearing is well preserved, oral hygience is good Neck: No carotid bruit; carotid pulses are 2 + bilaterally Respiratory: No accessory muscle use, No respiratory distress; chest expansion is symmetric, chest is bilaterally symmetric, lungs clear to auscultation Cardiovascular: regular rate-rhythm; No JVD; S1 and S2 Gastrointestinal: No tender; soft, round, audible bowel sounds Extremities: no lower extremity edema bilateral Neurologic/Psychiatric: power is 5/5 both on sides Skin: No rash, No ulcerations Data Review Labs Microbiology 01/06/19 Blood Culture - Final, Complete No growth 01/06/19 Influenza Types A,B Antigen (GOLDIE) - Final, Complete Radiology NAME: RICO [facility]LA[facility] REC#: [id number] PT STATUS: ADM IN : 1930 PHYSICIAN: BHAVIK ROLLINS DO ADMIT DATE: 01/06/19 Signed Date of Exam: 01/06/19 CT ABDOMEN/PELVIS WO PROCEDURE: CT abdomen and pelvis without contrast. TECHNIQUE: Multiple contiguous axial images were obtained through the abdomen and pelvis without the use of intravenous contrast. Auto Exposure Controls were utilized during the CT exam to meet ALARA standards for radiation dose reduction. INDICATION: Nausea, vomiting, diarrhea, weakness, and confusion. FINDINGS: There is a large pericardial effusion measuring up to 2 cm in thickness. There are patchy bibasilar infiltrates and tiny bilateral pleural effusions. The liver is normal in size without focal lesions. Gallbladder surgically absent. There is no biliary duct dilatation. Spleen is normal. The pancreas and adrenal glands are unremarkable. There is some atrophy of the kidneys. The aorta is nonaneurysmal. Bowel gas pattern is nonspecific. Bladder is normal. There is moderate amount of fluid throughout the colon. There are degenerative changes in the spine. IMPRESSION: Large pericardial effusion measuring up to 2 cm in thickness. Patchy bibasilar infiltrates with trace bilateral pleural effusions. Large amount of fluid in the colon may reflect a diarrheal state. Recommend clinical correlation. Dictated by: Dictated on workstation # [id number] Dict: 01/06/1927 Trans: 01/06/19 0730 Interpreted by: JOELLEN BARBA MD Electronically signed by: JOELLEN BARBA MD 01/06/19 0730 NAME: RICO [facility] REC#: [id number] PT STATUS: ADM IN : 1930 PHYSICIAN: BHAVIK ROLLINS DO ADMIT DATE: 01/06/19 Signed Date of Exam: 01/06/19 CHEST 1 VIEW, AP/PA ONLY INDICATION: Nausea and vomiting. Comparison made with prior examination 10/13/2017. FINDINGS: There is cardiomegaly. Mediastinum is unremarkable. Pacemaker overlies left hemithorax. There is no pleural effusion, pneumothorax or pneumonia. IMPRESSION: No acute cardiopulmonary abnormality. Cardiomegaly. Dictated by: Dictated on workstation # [id number] Dict: 01/06/19 0655 Trans: 01/06/19 0849 Interpreted by: JOELLEN BARBA MD Electronically signed by: JOELLEN BARBA MD 01/06/19 0849 A/P-Cardiology Assessment/Admission Diagnosis Pericardial effusion measuring up to 2 cm in thickness seen on CT of 01-05-19 - E chocardiogram of 01-06-19 shows mod pericardial effusion without hemodynamic significance N/V/D/gastroenteritis - management per medical services Sepsis - management per medical services Acute on chronic renal insufficiency Progressive memory loss Chronic stable angina - currently not reporting Fall and intracranial bleed in June 2017 for which he remained hospitalized at [facility] on 06/22/17 at [facility]: LVEF 40%, LVH with gibson dysfunction, AoV sclerosis, mild MR, RVSP 30 mmHg, small pericard eff w/o tamponade. Echocardiogram of Jan 06, 2019 shows LVEF 40-45% with mod pericardial effusion without hemodynamic signif. Grade 1 diastolic dysfunction. RVSP approx 17mmHg. History of dizziness and lightheadedness with changes in position, likely due to orthostatic hypotension due to antihypertensives, which has improved following reduction in medications. Coronary artery disease with a history of a 2.5 mm bare-metal stent to the right coronary artery on 07/12/[address] Friedman. Last cardiac catheterization was in December 2012. It showed 60 percent distal left main. There was diffuse disease of all coronary vessels. There were up to 80 percent stenoses in the distal left anterior descending and 80-90 percent stenoses in the proximal portion of the obtuse marginal branches. In addition, there was diffuse mode rate disease of the right coronary. The patient received a surgical consultation at [facility] by Dr Leon. He was not found to be an good candidate for coronary bypass surgery. He has been managed medically Hyperlipidemia, currently being treated with statin therapy. Hypertension. History of vertigo for which he has seen Dr. Carpenter and has previously used vestibular exercises. This is currently stable. Ischemic cardiomyopathy with an ejection fraction of 30-35 percent and anterolateral and apical akinesis at that time cardiac catheterization of December 2012 . Mild carotid arterial disease per ultrasonography of 5-9-19 S/p ICD implantation, functioning normally on interrogation carried out in September 2017 Hypothyroidism - replacement therapy per Dr. Mae Discussion and Recomendations Echocardiogram to evaluate pericardial effusion Continue home cardiac regimen Monitor lab closely Sepsis management per medical services Gastroenteritis management per medical services Further recs will be based on his hospital course Progressive memory loss/dementia - management per medical services We would like to thank medical services for this consult Clinical Quality Measures DVT/VTE Risk/Contraindication: Risk Factor Score Per Nursin RFS Level Per Nursing on Admit: 4+=Very High LEO DE PAZ Jan 06, 2019 09:04
[2019-01-06] MEDS: LACTOBACILLUS ACIDOPHILUS (PROBIOTIC) CAPSULE PO SCH ×3 (10:34→16:47)
[2019-01-06] MEDS: cefTRIAXone FOR IV USE 1,000 MG in WATER (STERILE) FOR INJECTION 10 ML IV SCH (10:34)
[2019-01-06] MEDS: DIVALPROX SPRINKLE 125 MG (DEPAKOTE) CAP PO SCH ×2 (10:34→21:47)
--- NOTE | 2019-01-06 10:46 | Physical Therapy Evaluation ---
PT Evaluation-General Medical Diagnosis Admission Date Jan 06, 2019 at 04:15 Medical Diagnosis: N/V/D; pericardial effusion Onset Date: Jan 06, 2019 Therapy Diagnosis Therapy Diagnosis: debility/weakness Height/Weight Height (Feet): 6 Height (Inches): 0.00 Weight (Pounds): 164 Weight (Ounces): 14.4 Precautions Precautions/Isolations: Fall Prevention, Standard Precautions Referral Physician: Carmelita Reason for Referral: Evaluation/Treatment Medical History Pertinent Medical History: CAD, Dementia, HTN, NV, Renal Insufficiency Additional Medical History brain bleed 2017 Reviewed History: Yes Social History Home: Single Level Current Living Status: Other Family Prior/Core FIM Prior Level of Function Therapy Code Descriptions/Definitions Functional [place] Measure: 0=Not Assessed/NA 4=Minimal Assistance 1=Total Assistance 5=Supervision or Setup 2=Maximal Assistance 6=Modified [place] 3=Moderate Assistance 7=Complete [place] Therapy Quality Codes: 6 Independent with activity with or without an assistive device 5 Patient requires set up or clean up by helper. Patient completes activity by themselves 4 Supervision or touching assist (CGA). [place] provide cues , steadying assist 3 The helper provides less than half the effort to complete the activity 2 The helper provides more than half the effort to complete the activity 1 Dependent. The helper does all the effort to complete an activity 7 Patient refused to complete or attempt activity 9 The patient did not perform the activity before the current illness or injury 88 Not attempted due to Medical conditions or safety concerns Functional Abilities and Goals: Independent: Patient completed the activities by him/herself, with or without an assistive device, with no assistance from a helper. Needed Some Help: Patient needed partial assistance from another person to complete activities. Dependent: A helper completed the activities for the patient. Unknown: Not Applicable: Bed Mobility: 6 Transfers (B,C,W/C) (FIM): 6 Gait: 6 Indoor Mobility (Ambulation): Independent Prior Devices Use: Walker PT Evaluation-Current Subjective Patient is in bed and very confused. Son present. Pain Numeric Pain Scale: 0-No Pain Location: No Pain Reported Objective Patient Orientation: Confused Problem Solving: Poor Attachments: IV ROM/Strength ROM Lower Extremities bilateral LE WFL Strength Lower Extremities 4/5 grossly bilateral LE Integumentary/Posture Integumentary refer to nursing notes Bowel Incontinence: Yes Bladder Incontinence: Yes Posture WFL Neuromuscular (Tone, Coordination, Reflexes) grossly intact Sensory Vision: Functional Hearing: Impaired Sensation Right Lower Extremit: Intact Sensation Left Lower Extremity: Intact Transfers Therapy Code Descriptions/Definitions Functional [place] Measure: 0=Not Assessed/NA 4=Minimal Assistance 1=Total Assistance 5=Supervision or Setup 2=Maximal Assistance 6=Modified [place] 3=Moderate Assistance 7=Complete [place] Transfers (B, C, W/C) (FIM): 5 Scootin Rollin Supine to/from Sit: 5 Sit to/from Stand: 5 Gait Mode of Locomotion: Walk Anticipated Mode of Locomotion: Walk Gait (FIM): 5 Distance (FIM): 3=150 ft Distance: 500' Gait Level of Assist: 5 Gait Assistive Device: FWW Comments/Gait Description VC's for body placement in FWW/safe and functional gait sequence Balance Sitting Static: Normal Sitting Dynamic: Normal Standing Static: Normal Standing Dynamic: Normal Assessment/Needs 88 y.o. male, will be seen short term by skilled PT to address functional mobility to ensure safe return to home with family at maximum LOF. Rehab Potential: Fair PT Senior Care Goals Senior Care Goals PT Senior Care Goals Time Frame: Jan 14, 2019 Transfers (B,C,W/C) (FIM): 6 Gait (FIM): 6 Gait distance (FIM): 3=150 ft Gait Level of Assist: 6 Gait Assistive Device: FWW PT Plan Problem List Problem List: Safety Treatment/Plan Treatment Plan: Continue Plan of Care Treatment Plan: Education, Functional Activity Igor, Functional Strength, Gait, Safety, Therapeutic Exercise Treatment Duration: Jan 14, 2019 Frequency: 6 times per week Estimated Hrs Per Day: .25 hour per day Patient and/or Family Agrees t: Yes Time/GCodes Time In: 1020 Time Out: 1033 Total Billed Treatment Time: 13 Total Billed Treatment 1 visit EVLowC 13 min LOLA CULVER PT Jan 06, 2019 10:46
[2019-01-06 11:36] VITALS: BP 105/66
--- NOTE | 2019-01-06 12:29 | NUR ---
RD ASSESSMENT Pt was semi-awake and pleasant for consult for MST score. Note pt had AMS and had family (son) present. Family notes pt had issues with nausea and several of episodes of vomiting, prompting them to bring him to the ER. Familiy states pt had episodes of diarrhea yesterday as well. Pt has had no BM today. PES Statement Inadequate oral intake related to nausea / vomiting / diarrhea as evidenced by patient interview (family interview) Est. kcal needs: [id number] (25-30 kcal/kg) Est. Pro needs: 74-88 g Pro (1.0-1.2 g Pro/kg) Fluid needs: ad albin. INTERVENTION: Continue with current diet order of NPO. Advance to Heart Healthy diet, when medically able. Pt may benefit from nutritional supplementation if poor po intake continues. MONITOR/EVALUATE: Weight PO Intake Labs Hydration Status Noel Clifton, MS, RD [phone]
--- NOTE | 2019-01-06 15:30 | NUR ---
Initial Destination Sign Repairer visit made by Chaplain Kacey Yanes. Pt doing fine.
[2019-01-06 16:00] VITALS: BP 107/67
[2019-01-06 19:22] VITALS: BP 106/64
[2019-01-07] VITALS (7 sets, daily range): BP systolic 89–157; BP diastolic 57–80
[2019-01-07] MEDS: D5 1/2 NS W/KCL 20 MEQ/L 1,000 ML IV SCH ×4 (00:16→23:00)
[2019-01-07] MEDS ORDERED: LORazepam INJ 2 MG/ML (ATIVAN) VIAL IVP ONE (01:00)
--- NOTE | 2019-01-07 01:00 | NUR ---
PT BECOMING MORE RESTLESS AND GETTING MORE AGITATED. CRAWLING OUT OF BED. SCREAMING AT DAUGHTER AND STAFF. DAUGHTER TRYING TO CALM HIM DOWN BUT PT GETTING MORE AGGRESSIVE. PT BECOMING VIOLENT TOWARD DAUGHTER AND STAFF. PT SAYING THAT HE WANTS TO BE OUT BED BECAUSE IT MAKES HIM FEEL LIKE A PRISONER. PCT WALKING WITH PT TO HELP HIM TO CALM DOWN BUT IT MAKING HIM TO BECOME MORE AGITATED. DR MORRELL NOTIFIED AND NEW ORDER RECEIVED
[2019-01-07] MEDS ORDERED: HALOPERIDOL 5 MG/ML (HALDOL) AMP IV ONE (02:15)
[2019-01-07 02:18] LABS: BILIRUBIN,URINE NEGATIVE (NEGATIVE); CLARITY,URINE SLIGHTLY CLOUDY; COLOR,URINE AMBER; GLUCOSE, URINE (UA) NEGATIVE (NEGATIVE); KETONES,URINE 1+ (NEGATIVE); LEUKOCYTE ESTERASE ,URINE 1+ (NEGATIVE); NITRITE,URINE NEGATIVE (NEGATIVE); PH,URINE 5 (5-9); PROTEIN,URINE 1+ (NEGATIVE); UROBILINOGEN,URINE NORMAL (NORMAL)
[2019-01-07] MEDS ORDERED: HALOPERIDOL 5 MG/ML (HALDOL) AMP ONE (02:19)
[2019-01-07 03:01] LABS: BACTERIA,URINE NEGATIVE /HPF; SQUAMOUS EPITHELIAL CELL,UR 0-2 /HPF; WBC,URINE RARE /HPF
[2019-01-07] MEDS: LACTOBACILLUS ACIDOPHILUS (PROBIOTIC) CAPSULE PO SCH ×3 (07:00→17:47)
--- NOTE | 2019-01-07 08:34 | Progress Note ---
Subjective Date Seen by a Provider: Jan 07, 2019 Time Seen by a Provider: 08:30 Subjective/Events-last exam PT SLEEPING SOUNDLY - DOES NOT AWAKEN WITH VOICE, ROUSES SLIGHTLY FOR TOUCH, BUT DOES NOT STAY AWAKE. DISCUSSED CASE WITH HIS DTR-IN-LAW - THEY WILL TALK ABOUT PRISON FOR SHORT TERM FOR IMPROVED STRENGTH PRIOR TO PT GOING HOME. Review of Systems General: No Chills; Fatigue Pulmonary: No Dyspnea, No Cough Cardiovascular: No: Chest Pain, Palpitations Gastrointestinal: No: Nausea, Vomiting Neurological: Weakness, Confusion Focused Exam Lactate Level 01/06/19 02:05: Lactic Acid Level 4.85*H 01/06/19 04:08: Lactic Acid Level 2.80*H Objective Exam Last Set of Vital Signs Vital Signs Date Time Temp Pulse Resp B/P (MAP) Pulse Ox O2 Delivery O2 Flow Rate FiO2 01/07/19 07:55 36.6 85 18 107/57 (74) 95 Room Air Capillary Refill : Less Than 3 SecondsLess Than 3 Seconds I&O Intake and Output 01/07/19 00:00 Intake Total 2740 ml Output Total 300 ml Balance 2440 ml Intake Oral 490 ml IV Total 2250 ml Output Urine Total 300 ml # Voids 1 # Bowel Movements 1 Daily Weight Change Unsure Unsure General: No Acute Distress, Other (PT SLEEPING) HEENT: Atraumatic Neck: Supple Lungs: Clear to Auscultation Heart: Regular Rate Abdomen: Normal Bowel Sounds, Soft, No Tenderness Skin: No Rashes, No Breakdown Psych/Mental Status: Other (SLEEPING) Results Lab Laboratory Tests 01/07/19 02:00: Urine Color AMBERH, Urine Clarity SLIGHTLY CLOUDY, Urine pH 5, Urine Specific [place] 1.015L, Urine Protein 1+H, Urine Glucose (UA) NEGATIVE, Urine Ketones 1+H, Urine Nitrite NEGATIVE, Urine Bilirubin NEGATIVE, Urine Urobilinogen NORMAL, Urine Leukocyte Esterase 1+H, Urine RBC (Auto) NEGATIVE, Urine RBC NONE, Urine WBC RARE, Urine Squamous Epithelial Cells 0-2, Urine Crystals NONE, Urine Bacteria NEGATIVE, Urine Casts NONE, Urine Mucus NEGATIVE, Urine Culture Indicated NO Microbiology 01/06/19 Blood Culture - Preliminary, Resulted No growth 01/06/19 Influenza Types A,B Antigen (GOLDIE) - Final, Complete Assessment/Plan Assessment/Plan Assess & Plan/Chief Complaint VIRAL GASTROENTERITIS PNEUMONIA SEPSIS PERICARDIAL EFFUSION WEAKNESS PROGRESSIVE DEMENTIA WITH AGGRESSIVE BEHAVIOR OVERNIGHT HYPOTENSION LACTIC ACIDOSIS ACUTE ON CHRONIC RENAL FAILURE STAGE 3 LEUKOCYTOSIS VIRAL GASTROENTERITIS - CONTINUE WITH FLUIDS - ADVANCE TO BLAND DIET SINCE THE NAUSEA AND EMESIS HAVE RESOLVED PNEUMONIA (SEEN ON CT SCAN - CLEAR ON CXR) WITH SEPSIS - FLUID REPLACEMENT PROTOCOL HAS BEEN COMPLETED - STARTED ON PNEUMONIA PROTOCOL WITH ROCEPHIN AND AZITHROMYCIN IV PERICARDIAL EFFUSION - CHRONIC IN NATURE PER DR. RODRIGUEZ'S REPORT HE WOULD NOT RECOMMEND ANY ACUTE TREATMENT FROM A SURGICAL STANDPOINT, HE RECOMMENDS MEDICAL MANAGEMENT ONLY DUE TO RICO'S AGE AND MENTAL DECLINE. WEAKNESS AND PROGRESSIVE DEMENTIA WITH AGGRESSIVE BEHAVIOR OVERNIGHT - PHYSICAL THERAPY STARTED - DEMENTIA IS SUPPORTIVE CARE ONLY AT THIS TIME. I WILL TALK TO HIS FAMILY ABOUT A SHORT TERM PRISON CARE IF THEY ARE SO INCLINED. - CONTINUE WITH DEPAKOTE, STOPPED REMERON AT THIS TIME. - HALDOL GIVEN OVERNIGHT - PT SLEEPING SOUNDLY TODAY HYPOTENSION - CHRONIC - SUPPORT WITH IV FLUIDS LACTIC ACIDOSIS - IMPROVED WITH HYDRATION - CONTINUE WITH FLUIDS, WILL DECREASE DOSE TOMORROW. ACUTE ON CHRONIC RENAL FAILURE STAGE 3 - IMPROVED WITH IV FLUIDS - CHECK LABS TOMORROW. LEUKOCYTOSIS - IMPROVED WITH HYDRATION. Clinical Quality Measures Admission Status Admission Dx VIRAL GASTROENTERITIS PNEUMONIA PERICARDIAL EFFUSION WEAKNESS PROGRESSIVE DEMENTIA HYPOTENSION LACTIC ACIDOSIS ACUTE ON CHRONIC RENAL FAILURE STAGE 3 LEUKOCYTOSIS DVT/VTE Risk/Contraindication: Risk Factor Score Per Nursin RFS Level Per Nursing on Admit: 4+=Very High LAURI MORRELL MD Jan 07, 2019 08:34
--- NOTE | 2019-01-07 08:57 | Progress Note - Cardiology ---
Cardiology SOAP Progress Note Subjective: In bed. Resp even and non-labored. Drowsy. DIL at the bedside. She reports he was very confused and aggressive last night. Objective: I&O/Vital Signs 01/07/19 01/07/19 01/07/19 01/07/19 00:00 04:58 07:45 07:55 Temp 36.2 36.8 36.6 Pulse 125 89 85 Resp 21 18 18 B/P (MAP) 137/80 (99) 157/74 (101) 107/57 (74) Pulse Ox 98 100 95 95 O2 Delivery Room Air Room Air Room Air Room Air 01/07/19 00:00 Intake Total 740 ml Output Total 300 ml Balance 440 ml Weight (Pounds): 164 Weight (Ounces): 14.4 Weight (Calculated Kilograms): 74.191603 Constitutional: other (Drowsy) Respiratory: No accessory muscle use, No respiratory distress; chest expansion is symmetric, chest is bilaterally symmetric, lungs clear to auscultation Cardiovascular: regular rate-rhythm; No JVD; S1 and S2 Gastrointestional: No tender; soft, round, audible bowel sounds Extremities: no lower extremity edema bilateral Neurologic/Psychiatric: power is 5/5 both on sides Skin: No rash, No ulcerations Results/Procedures: Labs Laboratory Tests 01/07/19 02:00: Urine Color AMBERH, Urine Clarity SLIGHTLY CLOUDY, Urine pH 5, Urine Specific [place] 1.015L, Urine Protein 1+H, Urine Glucose (UA) NEGATIVE, Urine Ketones 1+H, Urine Nitrite NEGATIVE, Urine Bilirubin NEGATIVE, Urine Urobilinogen NORMAL, Urine Leukocyte Esterase 1+H, Urine RBC (Auto) NEGATIVE, Urine RBC NONE, Urine WBC RARE, Urine Squamous Epithelial Cells 0-2, Urine Crystals NONE, Urine Bacteria NEGATIVE, Urine Casts NONE, Urine Mucus NEGATIVE, Urine Culture Indicated NO Microbiology 01/06/19 Blood Culture - Preliminary, Resulted No growth 01/06/19 Influenza Types A,B Antigen (GOLDIE) - Final, Complete Laboratory Tests 01/06/19 02:05 01/06/19 06:17 A/P: Assessment: Pericardial effusion measuring up to 2 cm in thickness seen on CT of 01-05-19 - Echocardiogram of 01-06-19 shows mod pericardial effusion without hemodynamic significance N/V/D/gastroenteritis - managed by Dr Mae Sepsis - managed by Dr Mae Acute on chronic renal insufficiency Progressive memory loss Chronic stable angina - currently not reporting Fall and intracranial bleed in June 2017 for which he remained hospitalized at [facility] on 06[facility]/17 at [facility]: LVEF 40%, LVH with gibson dysfunction, AoV sclerosis, mild MR, RVSP 30 mmHg, small pericard eff w/o tamponade. Echocardiogram of Jan 06, 2019 shows LVEF 40-45% with mod pericardial effusion without hemodynamic signif. Grade 1 diastolic dysfunction. RVSP approx 17mmHg. History of dizziness and lightheadedness with changes in position, likely due to orthostatic hypotension due to antihypertensives, which has improved following reduction in medications. Coronary artery disease with a history of a 2.5 mm bare-metal stent to the right coronary artery on 07/12/[address] Friedman. Last cardiac catheterization was in December 2012. It showed 60 percent distal left main. There was diffuse disease of all coronary vessels. There were up to 80 percent stenoses in the distal left anterior descending and 80-90 percent stenoses in the proximal portion of the obtuse marginal branches. In addition, there was diffuse moderate disease of the right coronary. The patient received a surgical consultation at [facility] by Dr Leon. He was not found to be an good candidate for coronary bypass surgery. He has been managed medically Hyperlipidemia, currently being treated with statin therapy. Hypertension. History of vertigo for which he has seen Dr. Carpenter and has previously used vestibular exercises. This is currently stable. Ischemic cardiomyopathy with an ejection fraction of 30-35 percent and anterolateral and apical akinesis at that time cardiac catheterization of December 2012 . Mild carotid arterial disease per ultrasonography of 5-9-19 S/p ICD implantation, functioning normally on interrogation carried out in September 2017 Hypothyroidism - replacement therapy per Dr. Mae Plan: Renal function improving Sepsis management per medical services Gastroenteritis management per medical services Progressive memory loss/dementia with episode of aggression overnight - manag ement per medical services Physician Assessment Physician Assessment Not able to provide any meaningful history. Was agitated and confused during the night. Resting now. Wakes but does not answer questions Lungs: fair bilat air entry, prolonged exp phase Cor: reg Ext: no c/c/e A&R * As documented in our note above that I updated (italics) and as noted below * Management is complex. Prognosis is guarded * I have discussed his issues in detail with Dr Mae and with patient's family. Conservative management seems appropriate, as agreed upon by family and LEO Lindsey Jan 07, 2019 08:57 LAUREN RODRIGUEZ MD FACP FAC CCDS Jan 07, 2019 09:58
[2019-01-07] MEDS ORDERED: HALOPERIDOL 5 MG/ML (HALDOL) AMP IM/IV PRN (09:15)
[2019-01-07] MEDS: cefTRIAXone FOR IV USE 1,000 MG in WATER (STERILE) FOR INJECTION 10 ML IV SCH (10:12)
[2019-01-07] MEDS: PANTOPRAZOLE 40 MG (PROTONIX) VIAL IV SCH (10:12)
[2019-01-07] MEDS: AZITHROMYCIN 250 MG TAB (ZITHROMAX) PO SCH (10:13)
[2019-01-07] MEDS: DIVALPROEX 250 MG DELAYED RELEASE (DEPAKOTE) TAB PO SCH ×2 (10:37→20:15)
--- NOTE | 2019-01-07 11:09 | Physical Therapy Daily Note ---
PT Daily Note-Current Subjective Patient in bed pre tx, he is confused, agitated and aggressive. Nurse is trying to give him meds, assist nurse with positioning to better administer meds. Patient suddenly is aggressively getting out of bed to go to the bathroom. Therapist has to hold onto his hands to keep him from pushing and hitting staff and nurse controls the IV pole, patient very unsteady. Patient ambulates to the restroom and sits on toilet while trying to push and hit staff. Patient ambulates back to bed the same way and lays down and PT and nurse positions patient to take meds and changes his brief. Bed alarm on post tx and nurse in room. Mental Status Patient Orientation: Confused Transfers Therapy Code Descriptions/Definitions Functional [place] Measure: 0=Not Assessed/NA 4=Minimal Assistance 1=Total Assistance 5=Supervision or Setup 2=Maximal Assistance 6=Modified [place] 3=Moderate Assistance 7=Complete [place] Therapy Quality Codes: 6 Independent with activity with or without an assistive device 5 Patient requires set up or clean up by helper. Patient completes activity by themselves 4 Supervision or touching assist (CGA). [place] provide cues , steadying assist 3 The helper provides less than half the effort to complete the activity 2 The helper provides more than half the effort to complete the activity 1 Dependent. The helper does all the effort to complete an activity 7 Patient refused to complete or attempt activity 9 The patient did not perform the activity before the current illness or injury 88 Not attempted due to Medical conditions or safety concerns Treatments bed mobility, transfers, ambulation, toileting. Assessment Current Status: Poor Progress confused and combative PT Aircraft Time Clerk Goals Aircraft Time Clerk Goals PT Aircraft Time Clerk Goals Time Frame: Jan 14, 2019 Transfers (B,C,W/C) (FIM): 6 Gait (FIM): 6 Gait distance (FIM): 3=150 ft Gait Level of Assist: 6 Gait Assistive Device: FWW PT Plan Problem List Problem List: Activity Tolerance, Functional Strength, Safety, Balance, Gait, Transfer, Bed Mobility Treatment/Plan Treatment Plan: Continue Plan of Care Treatment Plan: Education, Functional Activity Igor, Functional Strength, Gait, Safety, Therapeutic Exercise Treatment Duration: Jan 14, 2019 Frequency: 6 times per week Estimated Hrs Per Day: .25 hour per day Patient and/or Family Agrees t: Yes Safety Risks/Education Patient Education: Gait Training, Transfer Techniques, Correct Positioning, Safety Issues Teaching Recipient: Patient Teaching Methods: Demonstration, Discussion Response to Teaching: Reinforcement Needed Time/GCodes Time In: 1050 Time Out: 1102 Total Billed Treatment Time: 12 Total Billed Treatment 1 visit FA MATTHEW WATKINS PT Jan 07, 2019 11:09
--- NOTE | 2019-01-07 14:30 | Diagnostic Imaging Report ---
INDICATION: Lethargy. Time of exam 1:48 p.m. COMPARISON: Correlation is made with prior chest radiograph from one day earlier. FINDINGS: The heart is enlarged but stable. Cardiac defibrillator remains in place. There are patchy bibasilar infiltrates that have developed since prior exam. Mid and upper lung roy are clear. No significant effusion or pneumothorax is seen IMPRESSION: Development of patchy bibasilar infiltrate since exam one day earlier. Dictated by: Dictated on workstation # [id number]
[2019-01-08 00:03] VITALS: BP 112/62
[2019-01-08 06:18] LABS: HEMOGLOBIN 12.2 G/DL (13.3-17.7); MEAN PLATELET VOLUME 8.5 FL (7.4-10.4); RED CELL DISTRIBUTION WIDTH 14.8 % (10.0-14.5); WHITE BLOOD COUNT 8.2 10^3/uL (4.3-11.0)
[2019-01-08] MEDS: D5 1/2 NS W/KCL 20 MEQ/L 1,000 ML IV SCH ×2 (06:20→11:42)
[2019-01-08] MEDS: LACTOBACILLUS ACIDOPHILUS (PROBIOTIC) CAPSULE PO SCH ×3 (06:40→17:47)
[2019-01-08 06:52] LABS: BILIRUBIN,TOTAL 0.6 MG/DL (0.1-1.0); CREATININE SERUM 1.39 MG/DL (0.60-1.30); POTASSIUM 4.5 MMOL/L (3.6-5.0); TOTAL PROTEIN 5.6 GM/DL (6.4-8.2)
[2019-01-08 07:49] VITALS: BP 106/55
--- NOTE | 2019-01-08 08:44 | Progress Note ---
Subjective Date Seen by a Provider: Jan 08, 2019 Time Seen by a Provider: 08:40 Subjective/Events-last exam PT IS AN 88 Y/O MALE WHO IS WELL KNOWN TO ME FROM CLINIC. HE IS SLEEPY THIS MORNING - PER HIS DTR-IN-LAW HE SLEPT MOST OF THE DAY YESTERDAY. HE DID NOT HAVE ANY AGGRESSIVE OR IRRITABLE BEHAVIOR OVERNIGHT LAST NIGHT OR DURING THE DAY. HE WAS AWAKENED AND SAT UP TO SIDE OF THE BED WITH THERAPY STAFF WHILE I WAS IN THE ROOM AND RICO STATED THAT HE WAS FEELING BETTER, NOT QUITE SURE OF WHERE HE WAS AT THIS MORNING. Review of Systems General: Fatigue HEENT: No Head Aches Pulmonary: No Dyspnea; Cough Cardiovascular: No: Chest Pain, Palpitations Gastrointestinal: No: Nausea, Abdominal Pain Genitourinary: No Dysuria Neurological: Weakness, Confusion Focused Exam Lactate Level 01/06/19 02:05: Lactic Acid Level 4.85*H 01/06/19 04:08: Lactic Acid Level 2.80*H Objective Exam Last Set of Vital Signs Vital Signs Date Time Temp Pulse Resp B/P (MAP) Pulse Ox O2 Delivery O2 Flow Rate FiO2 01/08/19 07:49 36.9 72 18 106/55 (72) 94 Room Air Capillary Refill : Less Than 3 SecondsLess Than 3 Seconds I&O Intake and Output 01/08/19 00:00 Intake Total 1490 ml Balance 1490 ml Intake Oral 490 ml IV Total 1000 ml # Voids 4 # Bowel Movements 1 General: Alert, Other (ORIENTED TO PERSON, NOT PLACE OR TIME) HEENT: Atraumatic, PERRLA Neck: Supple Lungs: Clear to Auscultation (UPPER LOBES WITH FAINT CRACKLES IN BASES) Heart: Regular Rate Abdomen: Normal Bowel Sounds, Soft Extremities: No Clubbing, No Cyanosis, No Edema Skin: No Breakdown Neuro: Normal Speech Psych/Mental Status: Mood NL, Other (ORIENTED TO PERSON, NOT PLACE OR TIME) Results Lab Laboratory Tests 01/08/19 05:55: Sodium Level 138, Potassium Level 4.5, Chloride Level 108H, Carbon Dioxide Level 26, Anion Gap 4L, Blood Urea Nitrogen 13, Creatinine 1.39H, Estimat Glomerular Filtration Rate 48, BUN/Creatinine Ratio 9, Glucose Level 90, Calcium Level 8.0L , Corrected Calcium 8.8, Total Bilirubin 0.6, Aspartate Amino Transf (AST/SGOT) 17, Alanine Aminotransferase (ALT/SGPT) 7, Alkaline Phosphatase 58, Total Protein 5.6L, Albumin 3.0L 01/08/19 06:10: White Blood Count 8.2, Red Blood Count 3.69L, Hemoglobin 12.2L, Hematocrit 36L, Mean Corpuscular Volume 98, Mean Corpuscular Hemoglobin 33, Mean Corpuscular Hemoglobin Concent 34, Red Cell Distribution Width 14.8H, Platelet Count 118L, Mean Platelet Volume 8.5 Microbiology 01/06/19 Blood Culture - Preliminary, Resulted No growth 01/06/19 Influenza Types A,B Antigen (GOLDIE) - Final, Complete Assessment/Plan Assessment/Plan Assess & Plan/Chief Complaint VIRAL GASTROENTERITIS PNEUMONIA SEPSIS PERICARDIAL EFFUSION WEAKNESS PROGRESSIVE DEMENTIA WITH AGGRESSIVE BEHAVIOR OVERNIGHT HYPOTENSION LACTIC ACIDOSIS ACUTE ON CHRONIC RENAL FAILURE STAGE 3 LEUKOCYTOSIS VIRAL GASTROENTERITIS - CONTINUE WITH FLUIDS - ADVANCE TO BLAND DIET SINCE THE NAUSEA AND EMESIS HAVE RESOLVED PNEUMONIA (SEEN ON CT SCAN - CLEAR ON CXR) WITH SEPSIS - FLUID REPLACEMENT PROTOCOL HAS BEEN COMPLETED - STARTED ON PNEUMONIA PROTOCOL WITH ROCEPHIN AND AZITHROMYCIN IV PERICARDIAL EFFUSION - CHRONIC IN NATURE PER DR. RODRIGUEZ'S REPORT HE WOULD NOT RECOMMEND ANY ACUTE TREATMENT FROM A SURGICAL STANDPOINT, HE RECOMMENDS MEDICAL MANAGEMENT ONLY DUE TO RICO'S AGE AND MENTAL DECLINE. WEAKNESS AND PROGRESSIVE DEMENTIA - AGGRESSIVE BEHAVIOR RESOLVED - PHYSICAL THERAPY STARTED - DEMENTIA IS SUPPORTIVE CARE ONLY AT THIS TIME. I WILL TALK TO HIS FAMILY ABOUT A SHORT TERM LONGTERM CARE IF THEY ARE SO INCLINED. - CONTINUE WITH DEPAKOTE, STOPPED REMERON AT THIS TIME. - HALDOL WAS GIVEN ON YESTERDAY, BUT HE DID NOT NEED IT OVERNIGHT LAST NIGHT. HYPOTENSION - CHRONIC - SUPPORT WITH IV FLUIDS LACTIC ACIDOSIS - IMPROVED WITH HYDRATION - FLUIDS DECREASED ACUTE ON CHRONIC RENAL FAILURE STAGE 3 - IMPROVED WITH IV FLUIDS -- CONTINUE TO MONITOR LABS LEUKOCYTOSIS - IMPROVED WITH HYDRATION. CONTINUING TO PURSUE LONGTERM PLACEMENT - WILL HAVE TO SWING PT TO KEEP HIM FOR A FEW MORE DAYS IN THE HOSPITAL WE TREAT HIS PNEUMONIA. Clinical Quality Measures Admission Status Admission Dx VIRAL GASTROENTERITIS PNEUMONIA PERICARDIAL EFFUSION WEAKNESS PROGRESSIVE DEMENTIA HYPOTENSION LACTIC ACIDOSIS ACUTE ON CHRONIC RENAL FAILURE STAGE 3 LEUKOCYTOSIS DVT/VTE Risk/Contraindication: Risk Factor Score Per Nursin RFS Level Per Nursing on Admit: 4+=Very High LAURI MORRELL MD Jan 08, 2019 08:44
--- NOTE | 2019-01-08 09:38 | Physical Therapy Daily Note ---
PT Daily Note-Current Subjective Patient is in bed awake and pleasant. Physician and family present. Mental Status Patient Orientation: Confused Attachments: IV Transfers Therapy Code Descriptions/Definitions Functional [place] Measure: 0=Not Assessed/NA 4=Minimal Assistance 1=Total Assistance 5=Supervision or Setup 2=Maximal Assistance 6=Modified [place] 3=Moderate Assistance 7=Complete [place] Therapy Quality Codes: 6 Independent with activity with or without an assistive device 5 Patient requires set up or clean up by helper. Patient completes activity by themselves 4 Supervision or touching assist (CGA). [place] provide cues , steadying assist 3 The helper provides less than half the effort to complete the activity 2 The helper provides more than half the effort to complete the activity 1 Dependent. The helper does all the effort to complete an activity 7 Patient refused to complete or attempt activity 9 The patient did not perform the activity before the current illness or injury 88 Not attempted due to Medical conditions or safety concerns Transfers (B, C, W/C) (FIM): 4 Scootin Rollin Supine to/from Sit: 5 Sit to/from Stand: 4 Bed to/from Chair: 4 CGA for safety Gait Training Gait (FIM): 4 Distance (FIM): 3=150 ft Distance: 400' Gait Level of Assist: 4 Gait Persons Needed: 1 Gait Assistive Device: FWW NBOS, shuffle gait sequence/CGA for safety Assessment Patient up in recliner with chair alarm activated. PT to increase activity as tolerated by patient. PT Detention Goals Detention Goals PT Material Stockkeeper Yard Goals Time Frame: Jan 14, 2019 Transfers (B,C,W/C) (FIM): 6 Gait (FIM): 6 Gait distance (FIM): 3=150 ft Gait Level of Assist: 6 Gait Assistive Device: FWW PT Plan Treatment/Plan Treatment Plan: Continue Plan of Care Treatment Plan: Education, Functional Activity Igor, Functional Strength, Gait, Safety, Therapeutic Exercise Treatment Duration: Jan 14, 2019 Frequency: 6 times per week Estimated Hrs Per Day: .25 hour per day Patient and/or Family Agrees t: Yes Time/GCodes Time In: 900 Time Out: 909 Total Billed Treatment Time: 9 Total Billed Treatment 1 visit GT 9 min LOLA CULVER PT Jan 08, 2019 09:38
[2019-01-08] MEDS: cefTRIAXone FOR IV USE 1,000 MG in WATER (STERILE) FOR INJECTION 10 ML IV SCH (11:41)
[2019-01-08] MEDS: PANTOPRAZOLE 40 MG (PROTONIX) TAB PO SCH (11:42)
[2019-01-08] MEDS: DIVALPROEX 250 MG DELAYED RELEASE (DEPAKOTE) TAB PO SCH ×2 (11:42→21:34)
[2019-01-08] MEDS: AZITHROMYCIN 250 MG TAB (ZITHROMAX) PO SCH (11:42)
--- NOTE | 2019-01-08 14:36 | Cardiology Progress Note ---
Cardiology SOAP Progress Note Subjective: No significant cardiac complaints. Objective: I&O/Vital Signs 01/08/19 01/08/19 04:00 07:49 Temp 36.9 Pulse 72 Resp 20 18 B/P (MAP) 106/55 (72) Pulse Ox 94 O2 Delivery Room Air 01/08/19 00:00 Intake Total 1390 ml Balance 1390 ml Weight (Pounds): 164 Weight (Ounces): 14.4 Weight (Calculated Kilograms): 74.623106 Constitutional: other (Drowsy) Respiratory: No accessory muscle use, No respiratory distress; chest expansion is symmetric, chest is bilaterally symmetric, lungs clear to auscultation Cardiovascular: regular rate-rhythm; No JVD; S1 and S2 Gastrointestional: No tender; soft, round, audible bowel sounds Extremities: no lower extremity edema bilateral Neurologic/Psychiatric: power is 5/5 both on sides Skin: No rash, No ulcerations Results/Procedures: Labs Laboratory Tests 01/08/19 05:55: Sodium Level 138, Potassium Level 4.5, Chloride Level 108H, Carbon Dioxide Level 26, Anion Gap 4L, Blood Urea Nitrogen 13, Creatinine 1.39H, Estimat Glomerular Filtration Rate 48, BUN/Creatinine Ratio 9, Glucose Level 90, Calcium Level 8.0L , Corrected Calcium 8.8, Total Bilirubin 0.6, Aspartate Amino Transf (AST/SGOT) 17, Alanine Aminotransferase (ALT/SGPT) 7, Alkaline Phosphatase 58, Total Protein 5.6L, Albumin 3.0L 01/08/19 06:10: White Blood Count 8.2, Red Blood Count 3.69L, Hemoglobin 12.2L, Hematocrit 36L, Mean Corpuscular Volume 98, Mean Corpuscular Hemoglobin 33, Mean Corpuscular Hemoglobin Concent 34, Red Cell Distribution Width 14.8H, Platelet Count 118L, Mean Platelet Volume 8.5 Microbiology 01/06/19 Blood Culture - Preliminary, Resulted No growth 01/06/19 Influenza Types A,B Antigen (GOLDIE) - Final, Complete A/P: Assessment/Dx: Pericardial effusion measuring up to 2 cm in thickness seen on CT of 01-05-19 - Echocardiogram of 01-06-19 shows mod pericardial effusion without hemodynamic significance N/V/D/gastroenteritis - managed by Dr Mae Sepsis - managed by Dr Mae Acute on chronic renal insufficiency Progressive memory loss Chronic stable angina - currently not reporting Fall and intracranial bleed in June 2017 for which he remained hospitalized at [facility] on [facility]17 [facility]: LVEF 40%, LVH with gibson dysfunction, AoV sclerosis, mild MR, RVSP 30 mmHg, small pericard eff w/o tamponade. Echocardiogram of Jan 06, 2019 shows LVEF 40-45% with mod pericardial effusion without hemodynamic signif. Grade 1 diastolic dysfunction. RVSP approx 17mmHg. History of dizziness and lightheadedness with changes in position, likely due to orthostatic hypotension due to antihypertensives, which has improved following reduction in medications. Coronary artery disease with a history of a 2.5 mm bare-metal stent to the right coronary artery on 07/12/[address] Friedman. Last cardiac catheterization was in December 2012. It showed 60 percent distal left main. There was diffuse disease of all coronary vessels. There were up to 80 percent stenoses in the distal left anterior descending and 80-90 percent stenoses in the proximal portion of the obtuse marginal branches. In addition, there was diffuse moderate disease of the right coronary. The patient received a surgical consultation at [facility] by Dr Leon. He was not found to be an good candidate for coronary bypass surgery. He has been managed medically Hyperlipidemia, currently being treated with statin therapy. Hypertension. History of vertigo for which he has seen Dr. Carpenter and has previously used vestibular exercises. This is currently stable. Ischemic cardiomyopathy with an ejection fraction of 30-35 percent and anterolateral and apical akinesis at that time cardiac catheterization of December 2012 . Mild carotid arterial disease per ultrasonography of 5 S/p ICD implantation, functioning normally on interrogation carried out in September 2017 Hypothyroidism - replacement therapy per Dr. Mae Plan: Plan: Stable moderate pericardial effusion with normal BP. Continue to follow clinically. Renal function improving Sepsis management per medical services Gastroenteritis management per medical services Progressive memory loss/dementia with episode of aggression overnight - management per medical services Thank you for your consultation. Please call me if you have any questions. Kym Peck MD, FACP, FACC, FSCAI, FHRS, CCDS Interventional Cardiology Cardiac Electrophysiology Vascular Medicine and Endovascular Interventions Focused Exam Lactate Level 01/06/19 02:05: Lactic Acid Level 4.85*H 01/06/19 04:08: Lactic Acid Level 2.80*H Ava PECK MD Jan 08, 2019 14:36
--- NOTE | 2019-01-08 15:48 | NUR ---
CM/SS, respond to consult. PLAN: Likely SWB until Saturday, then transfer to [facility] for skilled care and therapies. Referral has been completed with [facility], await confirmation of acceptance. Requested private room due to patient's suspected dementia. CARE Assessment pending. SUMMARY: Patient sleeping soundly, snoring. Visited with TRACY/Suze Layton who is at bedside. Physician had already discussed the above care plan and family members were in agreement. As noted, referral was completed with preferred SNF; their daughter is an associate there. Patient resides with son Urban and Suze, they own [employer]. 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 Suze reports he had a fall with brain bleed June 2017 and has had varied degrees of cognition impairment since. He has had [place] Spotted Fever twice since from getting ticks from their property. Per Suze, it is not known what each ailment played in his continued cognition change, suspected dementia. He no longer drives. Provided DPOA HC information to Suze and highly recommended they consider getting POA and POA-HC in place while patient is still able to make decisions about agents and direct his wishes. Daughter Daina has worked in legal offices and son is a retired assistant prosecuting attorney, hopeful they can discuss this as a family and draft appropriate documents to avoid future issues if cognition impairment advances. Overall goal is not confirmed as far as him returning home with George. They keep close monitor on him and do not leave home overnight because of this responsibility. There are two other children, daughter Daina Em in [place] and son in [place]. Kaleb Guo PH: [phone] CE: [phone] TRACY Dotson CE: [phone] Daina EmJeannette CE: [phone]
[2019-01-08 16:46] VITALS: BP 121/65
[2019-01-08 23:39] VITALS: BP 137/79
[2019-01-09] MEDS: D5 1/2 NS W/KCL 20 MEQ/L 1,000 ML IV SCH (00:43)
[2019-01-09 05:47] LABS: HEMOGLOBIN 12.2 G/DL (13.3-17.7); MEAN PLATELET VOLUME 8.5 FL (7.4-10.4); RED CELL DISTRIBUTION WIDTH 14.3 % (10.0-14.5); WHITE BLOOD COUNT 7.1 10^3/uL (4.3-11.0)
[2019-01-09 06:01] LABS: CALCIUM 8.2 MG/DL (8.5-10.1); CREATININE SERUM 1.3 MG/DL (0.60-1.30); POTASSIUM 4.5 MMOL/L (3.6-5.0)
[2019-01-09] MEDS: LACTOBACILLUS ACIDOPHILUS (PROBIOTIC) CAPSULE PO SCH (06:53)
--- NOTE | 2019-01-09 08:53 | NUR ---
Swing Bed Note: Qualifies for swing bed for continued need of IV abx (Pneumonia) et continuous IV fluids with continued need for strengthening with Physical et Occupational therapies. Anticipate that patient will need continued rehabilitation for an extended period of time as well. Referral has been sent to [facility] for this anticipated need. Zafar awake et pleasant this a.m. He is lying in bed and reports that he slept better last night except for needing to urinate approximately every hour. His daughter is at bedside et supports this plan of care as well. F/U with Dr. Mae this a.m. et continue to plan on possible discharge on Saturday to SNF for continued rehabilitation.
--- NOTE | 2019-01-09 08:58 | Discharge Summary ---
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 RICO HAS BEEN DECLINING OVER THE PAST 6 MONTHS WITH INCREASING CONFUSION AND GENERALIZED WEAKNESS. HIS WORK-UP THUS FAR HAS BEEN NEGATIVE FOR ACUTE STROKE, BUT HAS HAD HEAD TRAUMA WITH SUBDURAL BLEED ABOUT A YEAR AGO WHICH SEEMED TO PROPAGATE THE SLOW DECLINE RICO HAS BEEN EXPERIENCING. HE PRESENTED TO THE EMERGENCY DEPARTMENT AFTER HAVING SEVERE NAUSEA, EMESIS AND DIARRHEA. IN THE EMERGENCY DEPARTMENT HE HAD A CT SCAN OF THE ABDOMEN AND PELVIS WHICH SHOWED AN INFILTRATE IN LUNG BASES BILATERALLY AND AN INCIDENTAL FINDING OF A LARGE PERICARDIAL EFFUSION (known previously on admission to hospital last year in [place] - no changed significantly per Dr. Rico). THE CHEST XRAY WAS NEGATIVE FOR ANY ACUTE FINDINGS. Discharge Summary Discharge Physical Examination Allergies: Coded Allergies: No Known Drug Allergies (Unverified , 12/05/10) Vitals & I&Os Vital Signs Date Time Temp Pulse Resp B/P (MAP) Pulse Ox O2 Delivery O2 Flow Rate FiO2 01/08/19 23:39 36.5 89 18 137/79 (98) 97 Room Air General Appearance: Alert, Other (ORIENTED TO PERSON, NOT PLACE OR TIME) HEENT: Atraumatic, PERRLA, Mucous Memb Moist/[place] Respiratory: Clear to Auscultation, Normal Air Movement Cardiovascular: Regular Rate Abdominal: Normal Bowel Sounds, Soft, No Tenderness Extremities: No Clubbing, No Cyanosis Skin: No Rashes, No Breakdown Neuro: Cranial Nerves 3-12 NL Psych/Mental Status: Mental Status NL, Mood NL Hospital Course Was the Problem List Reviewed?: Yes VIRAL GASTROENTERITIS PNEUMONIA SEPSIS PERICARDIAL EFFUSION 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 RICO'S REPORT HE WOULD NOT RECOMMEND ANY ACUTE TREATMENT FROM A SURGICAL STANDPOINT, HE RECOMMENDS MEDICAL MANAGEMENT ONLY DUE TO RICO'S AGE AND MENTAL DECLINE. WEAKNESS AND PROGRESSIVE DEMENTIA - AGGRESSIVE BEHAVIOR RESOLVED - PHYSICAL THERAPY STARTED - DEMENTIA IS SUPPORTIVE CARE ONLY AT THIS TIME. I WILL TALK TO HIS FAMILY ABOUT A SHORT TERM [facility] CARE IF THEY ARE SO INCLINED. - CONTINUE WITH DEPAKOTE - DOSE INCREASED, STOPPED REMERON AT THIS TIME. 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 CONTINUING TO PURSUE [facility] PLACEMENT WAITING ON [facility] TO MAKE DECISION ON TAKING PT SKILLED THERAPY. TODAY WE WILL SWING PT TO KEEP HIM FOR A FEW MORE DAYS IN THE HOSPITAL WE TREAT HIS PNEUMONIA WITH IV ANTIBIOTICS. Pending Labs Laboratory Tests 01/09/19 05:30: White Blood Count 7.1, Red Blood Count 3.69, Hemoglobin 12.2, Hematocrit 36, Mean Corpuscular Volume 97, Mean Corpuscular Hemoglobin 33, Mean Corpuscular Hemoglobin Concent 34, Red Cell Distribution Width 14.3, Platelet Count 114, M yuliana Platelet Volume 8.5, Sodium Level 139, Potassium Level 4.5, Chloride Level 106, Carbon Dioxide Level 25, Anion Gap 8, Blood Urea Nitrogen 11, Creatinine 1.30, Estimat Glomerular Filtration Rate 52, BUN/Creatinine Ratio 8, Glucose Level 94, Calcium Level 8.2 Discharge Condition at discharge IMPROVING Instructions to patient/family Please see electronic discharge instructions given to patient. Discharge Medications Reviewed and agree with Discharge Medication list on patient's Discharge Instruction sheet Clinical Quality Measures DVT/VTE Risk/Contraindication: Risk Factor Score Per Nursin RFS Level Per Nursing on Admit: 4+=Very High LAURI MORRELL MD Jan 09, 2019 08:58
[2019-01-09] MEDS: AZITHROMYCIN 250 MG TAB (ZITHROMAX) PO SCH (09:00)
[2019-01-09] MEDS: PANTOPRAZOLE 40 MG (PROTONIX) TAB PO SCH (09:00)
[2019-01-09] MEDS: DIVALPROEX 250 MG DELAYED RELEASE (DEPAKOTE) TAB PO SCH (09:00)
[2019-01-09] MEDS: cefTRIAXone FOR IV USE 1,000 MG in WATER (STERILE) FOR INJECTION 10 ML IV SCH (09:00)
--- NOTE | 2019-01-09 12:26 | Diagnostic Imaging Report ---
INDICATION: Lethargy and pericardial effusion TECHNIQUE: PA and lateral views of the chest are obtained. COMPARISON: Comparison is made to study of 01/07/2019. FINDINGS: There is mild cardiomegaly. Pulmonary vascularity is at the upper limits of normal. There is mild infrahilar parenchymal density, greater on the right. This appears mildly improved compared to the previous exam. IMPRESSION: Mild overall improvement in infrahilar densities which are greater on the right. Dictated by: Dictated on workstation # [id number]
--- NOTE | 2019-01-09 13:06 | Progress Note - Cardiology ---
Cardiology SOAP Progress Note Subjective: No cp or palp or syncope Notes malaise Feels better than before Daughter by bedside Objective: I&O/Vital Signs 01/09/19 00:00 Intake Total 1470 ml Output Total 150 ml Balance 1320 ml Weight (Pounds): 164 Weight (Ounces): 14.4 Weight (Calculated Kilograms): 74.438924 Constitutional: other (Drowsy) Respiratory: No accessory muscle use, No respiratory distress; chest expansion is symmetric, chest is bilaterally symmetric, lungs clear to auscultation Cardiovascular: regular rate-rhythm; No JVD; S1 and S2 Gastrointestional: No tender; soft, round, audible bowel sounds Extremities: no lower extremity edema bilateral Neurologic/Psychiatric: power is 5/5 both on sides Skin: No rash, No ulcerations Results/Procedures: Labs Laboratory Tests 01/09/19 05:30: White Blood Count 7.1, Red Blood Count 3.69L, Hemoglobin 12.2L, Hematocrit 36L, Mean Corpuscular Volume 97, Mean Corpuscular Hemoglobin 33, Mean Corpuscular Hemoglobin Concent 34, Red Cell Distribution Width 14.3, Platelet Count 114L, Mean Platelet Volume 8.5, Sodium Level 139, Potassium Level 4.5, Chloride Level 106, Carbon Dioxide Level 25, Anion Gap 8, Blood Urea Nitrogen 11, Creatinine 1.30, Estimat Glomerular Filtration Rate 52, BUN/Creatinine Ratio 8, Glucose Level 94, Calcium Level 8.2L Microbiology 01/06/19 Blood Culture - Preliminary, Resulted No growth 01/06/19 Influenza Types A,B Antigen ([facility]) - Final, Complete A/P: Assessment: Pericardial effusion measuring up to 2 cm in thickness seen on CT of 01-05-19 - Echocardiogram of 01-06-19 shows mod pericardial effusion without hemodynamic significance; repeat echo of 01-09-19 essentially unchanged N/V/D/gastroenteritis - managed by Dr Mae Sepsis - managed by Dr Mae Acute on chronic renal insufficiency Progressive memory loss Chronic stable angina - currently not reporting Fall and intracranial bleed in June 2017 for which [facility] LVEF 40%, LVH with gibson dysfunction, AoV sclerosis, mild MR, RVSP 30 mmHg, small pericard eff w/o tamponade. Echocardiogram of Jan 06, 2019 shows LVEF 40-45% with mod pericardial effusion without hemodynamic signif. Grade 1 diastolic dysfunction. RVSP approx 17mmHg. History of dizziness and lightheadedness with changes in position, likely due to orthostatic hypotension due to antihypertensives, which has improved following reduction in medications. Coronary artery disease with a history of a 2.5 mm bare-metal stent to the right coronary artery on 07/12/[address] Friedman. Last cardiac catheterization was in December 2012. It showed 60 percent distal left main. There was diffuse disease of all coronary vessels. There were up to 80 percent stenoses in the distal left anterior descending and 80-90 percent stenoses in the proximal portion of the obtuse marginal branches. In addition, there was diffuse moderate disease of the right coronary. The patient received a surgical consultation at [facility] by Dr Leon. He was not found to be an good candidate for coronary bypass surgery. He has been managed medically Hyperlipidemia, currently being treated with statin therapy. Hypertension. History of vertigo for which he has seen Dr. Carpenter and has previously used vestibular exercises. This is currently stable. Ischemic cardiomyopathy with an ejection fraction of 30-35 percent and anterolateral and apical akinesis at that time cardiac catheterization of December 2012 . Mild carotid arterial disease per ultrasonography of 5-9-19 S/p ICD implantation, functioning normally on interrogation carried out in September 2017 Hypothyroidism - replacement therapy per Dr. Mae Plan: * Pericard eff stable clinically. Conservative therapy per pt and family request * Monitor labs * Dr Peck covering Card Svce this weekend. Please call if needed LAUREN RODRIGUEZ MD FACP FAC CCDS Jan 09, 2019 13:06
== END 2019-01-09 09:06 | disposition swing bed (61) | DRG 871 ==
LOC: EDUNIT# 01:39 → ER 01:41 → 4TH 04:15
PROVIDERS: ADMIT Family Medicine; ATTEND Family Medicine
DX: A41.9 Sepsis, unspecified organism (principal); J18.9 Pneumonia, unspecified organism; N17.9 Acute kidney failure, unspecified; I31.3 Pericardial effusion (noninflammatory); E87.2 Acidosis; F03.91 Unspecified dementia, unspecified severity, with behavioral disturbance; N18.3 Chronic kidney disease, stage 3 (moderate); A08.4 Viral intestinal infection, unspecified; I12.9 Hypertensive chronic kidney disease with stage 1 through stage 4 chronic kidney disease, or unspecified chronic kidney disease; I25.119 Atherosclerotic heart disease of native coronary artery with unspecified angina pectoris; I95.1 Orthostatic hypotension; I08.0 Rheumatic disorders of both mitral and aortic valves; I25.5 Ischemic cardiomyopathy; E78.5 Hyperlipidemia, unspecified; E03.9 Hypothyroidism, unspecified; I25.2 Old myocardial infarction; Z95.5 Presence of coronary angioplasty implant and graft; Z95.810 Presence of automatic (implantable) cardiac defibrillator
CPT/HCPCS: 36415; 71045; 71046; 74176; 80048; 80053; 80164; 81000; 82150; 83605; 83690; 83735; 85007; 85025; 85027; 85610; 85730; 87040; 87804; 93005; 93041; 93306; 93308; 96361; 96374

== ENCOUNTER 2019-01-09 08:47 | Inpatient (IN) | payer MEDICARE ==
[~2019-01-09] VITALS: Ht 182.9 cm; Wt 73.7 kg
[2019-01-09 08:00] VITALS: BP 136/68
[~2019-01-09 08:47] MED LIST changes: +DIVA125T32 PO; +MIRT15TA6 PO
[2019-01-09] MEDS ORDERED: ONDANSETRON 4 MG/2 ML (SDV) Z0FRAN IV PRN (09:15)
--- NOTE | 2019-01-09 09:34 | NUR ---
Swing Bed Note: Qualifies for swing bed for continued need of IV abx (Pneumonia) et continuous IV fluids with continued need for strengthening (Weakness) with Physical et Occupational therapies. Anticipate that patient will need continued rehabilitation for an extended period of time as well. Referral has been sent to [facility] for this anticipated need. Zafar awake et pleasant this a.m. He is lying in bed and reports that he slept better last night except for needing to urinate approximately every hour. His daughter is at bedside et supports this plan of care as well. F/U with Dr. Mae this a.m. et continue to plan on possible discharge on Saturday to SNF for continued rehabilitation.
--- NOTE | 2019-01-09 09:35 | NUR ---
Admission Drug Regimen Review: Date: 01/09/19 Time: 934 Review Completed, No Issues found
[2019-01-09] MEDS: cefTRIAXone FOR IV USE 1,000 MG in WATER (STERILE) FOR INJECTION 10 ML IV SCH (10:02)
--- NOTE | 2019-01-09 10:42 | Physical Therapy Evaluation ---
PT Evaluation-General Medical Diagnosis Admission Date Jan 09, 2019 at 09:20 Medical Diagnosis: pneumonia/weakness Onset Date: Jan 06, 2019 Therapy Diagnosis Therapy Diagnosis: debility/weakness Height/Weight Height (Feet): 6 Height (Inches): 0.00 Weight (Pounds): 164 Weight (Ounces): 14.4 Precautions Precautions/Isolations: Fall Prevention, Standard Precautions Referral Physician: Carmelita Medical History Pertinent Medical History: CAD, Dementia, HTN, [place], Renal Insufficiency Current History SWB status Reviewed History: Yes Social History Home: Single Level Current Living Status: Other Family Prior/Core FIM Prior Level of Function Therapy Code Descriptions/Definitions Functional [place] Measure: 0=Not Assessed/NA 4=Minimal Assistance 1=Total Assistance 5=Supervision or Setup 2=Maximal Assistance 6=Modified [place] 3=Moderate Assistance 7=Complete [place] Therapy Quality Codes: 6 Independent with activity with or without an assistive device 5 Patient requires set up or clean up by helper. Patient completes activity by themselves 4 Supervision or touching assist (CGA). Crescent provide cues , steadying assist 3 The helper provides less than half the effort to complete the activity 2 The helper provides more than half the effort to complete the activity 1 Dependent. The helper does all the effort to complete an activity 7 Patient refused to complete or attempt activity 9 The patient did not perform the activity before the current illness or injury 88 Not attempted due to Medical conditions or safety concerns Functional Abilities and Goals: Independent: Patient completed the activities by him/herself, with or without an assistive device, with no assistance from a helper. Needed Some Help: Patient needed partial assistance from another person to complete activities. Dependent: A helper completed the activities for the patient. Unknown: Not Applicable: Bed Mobility: 6 Transfers (B,C,W/C) (FIM): 6 Gait: 6 Indoor Mobility (Ambulation): Independent Prior Devices Use: Walker PT Evaluation-Current Subjective Patient agrees to PT. Very confused. Pain Numeric Pain Scale: 0-No Pain Location: No Pain Reported Objective Patient Orientation: Confused Attachments: IV ROM/Strength ROM Lower Extremities bilateral LE WFL Strenght Lower Extremities 4/5 grossly bilateral LE Integumentary/Posture Integumentary refer to nursing notes Bowel Incontinence: Yes Bladder Incontinence: Yes Posture WFL Neuromuscular (Tone, Coordination, Reflexes) grossly intact Sensory Vision: Functional Hearing: Impaired Sensation Right Lower Extremit: Intact Sensation Left Lower Extremity: Intact Transfers Therapy Code Descriptions/Definitions Functional [place] Measure: 0=Not Assessed/NA 4=Minimal Assistance 1=Total Assistance 5=Supervision or Setup 2=Maximal Assistance 6=Modified [place] 3=Moderate Assistance 7=Complete [place] Therapy Quality Codes: 6 Independent with activity with or without an assistive device 5 Patient requires set up or clean up by helper. Patient completes activity by themselves 4 Supervision or touching assist (CGA). Crescent provide cues , steadying assist 3 The helper provides less than half the effort to complete the activity 2 The helper provides more than half the effort to complete the activity 1 Dependent. The helper does all the effort to complete an activity 7 Patient refused to complete or attempt activity 9 The patient did not perform the activity before the current illness or injury 88 Not attempted due to Medical conditions or safety concerns Transfers (B, C, W/C) (FIM): 5 Scootin Rollin Roll Left to Right (QC): 5 Supine to/from Sit: 5 Sit to/from Stand: 5 Sit to Lying (QC): 5 Lying to Sitting/Side of Bed(Q: 5 Sit to Stand (QC): 5 Chair/Fvq-vb-Qxgbt Xfer(QC): 5 Car Transfer (QC): 5 Gait Does the Patient Walk?: Yes Mode of Locomotion: Walk Anticipated Mode of Locomotion: Walk Gait (FIM): 5 Distance (FIM): 3=150 ft Walk 10 feet (QC): 5 Walk 50 ft with 2 Turns(QC): 5 Walk 150 ft (QC): 5 Walking 10ft/uneven surface-QC: 5 Distance: >600' x 2 Gait Level of Assist: 5 Gait Assistive Device: FWW Comments/Gait Description steady, functional gait sequence Stairs Stairs (FIM): 1 #of Steps: 1 Level of Assist: 5 1 Step (curb) (QC): 5 4 Steps (QC): 88 Assistive Device: Walker 12 Steps (QC): 88 Balance Sitting Static: Normal Sitting Dynamic: Normal Standing Static: Normal Standing Dynamic: Normal Treatment Ambulation with FWW SBA x 600' x 2 on all terrains with normal balance. Patient requires 1 recovery period due to fatigue. Assessment/Needs 88 y.o. male, will be seen by skilled PT to address functional strength and mobility to improve current LOF . Patient will transfer to [place] upon dismissal from hospital per physician report. Rehab Potential: Fair PT Private Banker Goals Senior Living Goals PT Senior Living Goals Time Frame: Jan 24, 2019 Transfers (B,C,W/C) (FIM): 6 Sit to Lying (QC): 6 Lying-Sitting on Side/Bed(QC): 6 Sit to Stand (QC): 6 Rollin Roll Left to Right (QC): 6 Chair/Csk-hb-Ulrxw Xfer(QC): 6 Car Transfer (QC): 6 Does the Patient Walk: Yes Gait (FIM): 6 Gait distance (FIM): 3=150 ft Walk 10 feet (QC): 6 Walk 10ft-Uneven Surface(QC): 6 Walk 50ft with 2 Turns (QC): 6 Walk 150 ft (QC): 6 Gait Level of Assist: 6 Gait Assistive Device: FWW Stairs (FIM): 2 # of Steps: 4 1 Step (curb) (QC): 5 4 Steps (QC): 5 12 Steps (QC): 9 Stairs Level Of Assist: 5 Picking up an Object (QC): 5 PT Plan Problem List Problem List: Safety Treatment/Plan Treatment Plan: Continue Plan of Care Treatment Plan: Bed Mobility, Education, Functional Activity Igor, Functional Strength, Gait, Safety, Therapeutic Exercise, Transfers Treatment Duration: Jan 24, 2019 Frequency: 6 times per week Estimated Hrs Per Day: .25 hour per day Patient and/or Family Agrees t: Yes Discharge Recommendations Therapy Discharge Recommendati: Other, See Comments (long term/NH) Time/GCodes Time In: 945 Time Out: 1015 Total Billed Treatment Time: 30 Total Billed Treatment 1 visit EVModC 15 min FA 15 min LOLA CULVER PT Jan 09, 2019 10:42
--- NOTE | 2019-01-09 10:46 | NUR ---
CM/SS. Care plan is for admission to [facility] under Medicare skilled services, tentatively Saturday01/12/19. [facility] has not formally accepted patient, updated this a.m. that physician discontinued Haldol. [facility] Team reportedly wants to review patient status on Saturday regarding behaviors over the weekend. CARE Assessment pending.
--- NOTE | 2019-01-09 11:08 | History & Physical ---
History of Present Illness History of Present Illness Reason for visit/HPI PT REPORTS THAT HE IS FEELING BETTER TODAY. HE REPORTS THAT HE DOES NOT HAVE CHEST PAIN, SHORTNESS OF BREATH. HIS DAUGHTER REPORTS THAT HE DOES SEEM TO BE FEELING BETTER TODAY. HE REPORTS THAT HE IS FEELING LIKE HE WANTS TO GO HOME, AND WANTS TO GO OUTSIDE FOR A WHILE. Date of Admission Jan 09, 2019 at 09:20 Date Seen by a Provider: Jan 09, 2019 Time Seen by a Provider: 09:30 Attending Physician Lauri Mae MD Admitting Physician Lauri Mae MD Consult Allergies and Home Medications Allergies Coded Allergies: No Known Drug Allergies (Unverified , 12/05/10) Patient Home Medication List Home Medication List Reviewed: Yes Past Wnilbst-Mtmwgf-Thnqyr Hx Past Med/Social Hx: Reviewed Nursing Past Med/Soc Hx, Reviewed and Corrections made Patient Social History Marrital Status: Number of Children: 3 Number of living children: 3 Living Status: LIVES WITH HIS SON AND HIS DTR-IN-LAW Employed/Student: retired [employer] Smoke Exposure: No Physical Abuse Screen: No Sexual Abuse: No Recent Foreign Travel: No Contact w/other who traveled: No Recent Hopitalizations: No Recent Infectious Disease Expo: No Immunizations Up To Date Tetanus Booster (TDap): Less than 5yrs Date of Pneumonia Vaccine: Jan 13, 2012 Date of Influenza Vaccine: Dec 15, 2012 Seasonal Allergies Seasonal Allergies: No Past Medical History Surgeries: Coronary Stent, Defibrillator, Gallbladder, Pacemaker Currently Using CPAP: No Currently Using BIPAP: No Cardiac: Coronary Artery Disease, Heart Attack, Hypertension Neurological: Dementia, Vertigo Reproductive: No Sexually Transmitted Disease: No HIV/AIDS: No Loss of Vision: Denies Hearing Impairment: Hard of Hearing History of Blood Disorders: No Adverse Reaction to Blood [place]: No Family History Reviewed and Corrections made Heart Disease, Hypertension Review of Systems Constitutional: No chills, No fever; malaise, weakness EENTM: No hoarseness, No nose pain, No throat pain Respiratory: No cough, No dyspnea on exertion, No short of breath Cardiovascular: No chest pain, No palpitations Gastrointestinal: No abdominal pain, No constipation, No diarrhea Genitourinary: incontinence Musculoskeletal: muscle weakness Skin: no symptoms reported Psychiatric/Neurological: Denies Anxiety, Denies Depressed; Weakness All Other Systems Reviewed Negative Unless Noted: Yes Physical Exam Vital Signs Vital Signs - First Documented 01/09/19 08:00 Temp 37.2 Pulse 86 Resp 18 B/P (MAP) 136/68 (90) Pulse Ox 97 O2 Delivery Room Air Capillary Refill : Height, Weight, BMI Height: 6'0.00" Weight: 164lbs. 14.4oz. 74.816982an; 22.03 BMI Method:Estimated General Appearance: No Apparent Distress, WD/WN Eyes: Bilateral Eye Normal Inspection, Bilateral Eye PERRL, Bilateral Eye EOMI HEENT: PERRL/EOMI, Pharynx Normal Neck: Full Range of Motion, Non Tender, Supple Respiratory: Chest Non Tender, Normal Breath Sounds, No Accessory Muscle Use, Decreased Breath Sounds (IN BASES) Cardiovascular: Regular Rate, Rhythm, No Edema Gastrointestinal: Normal Bowel Sounds, Non Tender, Soft Rectal: Deferred Back: Normal Inspection Extremity: Normal Capillary Refill, Non Tender, No Calf Tenderness, No Pedal Edema Neurologic/Psychiatric: Alert, Normal Mood/Affect, Other (ORIENTED TO PERSON, NOT PLACE OR TIME) Skin: Normal Color, Warm/Dry Lymphatic: No Adenopathy Assessment/Plan Assessment and Plan PNEUMONIA SEPSIS PERICARDIAL EFFUSION WEAKNESS PROGRESSIVE DEMENTIA HYPOTENSION LACTIC 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 RODRIGUEZ'S REPORT HE WOULD NOT RECOMMEND ANY ACUTE TREATMENT FROM A SURGICAL STANDPOINT, HE RECOMMENDS MEDICAL MANAGEMENT ONLY DUE TO RICO'S AGE AND MENTAL DECLINE. WEAKNESS AND PROGRESSIVE DEMENTIA - AGGRESSIVE BEHAVIOR RESOLVED - PHYSICAL THERAPY STARTED AND OCC THERAPY STARTED WELL - PT TOLERATING BOTH WELL. - DEMENTIA IS SUPPORTIVE CARE ONLY AT THIS TIME. 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 CONTINUING TO PURSUE CARE HOME PLACEMENT WAITING ON [facility] TO MAKE DECISION ON TAKING PT SKILLED THERAPY. TODAY WE WILL SWING PT TO KEEP HIM FOR A FEW MORE DAYS IN THE HOSPITAL WE TREAT HIS PNEUMONIA WITH IV ANTIBIOTICS. 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
[2019-01-09] MEDS ORDERED: ZINC OXIDE 16% OINT (BUTT PASTE) 113 GM TUBE TOP PRN (11:15)
--- NOTE | 2019-01-09 13:08 | Occupational Therapy Eval ---
OT Evaluation-General/PLF Medical Diagnosis Admission Date Jan 09, 2019 at 09:20 Medical Diagnosis: pneumonia/weakness Onset Date: Jan 06, 2019 Therapy Diagnosis Therapy Diagnosis: decreased functional mobility and ADLs Height/Weight Height (Feet): 6 Height (Inches): 0.00 Weight (Pounds): 164 Weight (Ounces): 14.4 Precautions Precautions/Isolations: Fall Prevention, Standard Precautions Safety Interventions: Bed Exit Alarm Weight Bear Status Weight Bearing Restriction: Weight Bearing/Tolerated Referral Physician: Carmelita Referral Reason: Activity Tolerance, Self Care, Evaluation/Treatment, Strengthening/ROM Medical History Pertinent Medical History: CAD, Dementia, HTN, GA, Renal Insufficiency Additional Medical History dementia, coronary Stent, Defibrillator, Gallbladder, Pacemaker Current History Admitting medical dx: PNEUMONIA SEPSIS PERICARDIAL EFFUSION WEAKNESS PROGRESSIVE DEMENTIA HYPOTENSION LACTIC ACIDOSIS ACUTE ON CHRONIC RENAL FAILURE STAGE 3 LEUKOCYTOSIS Reviewed History: Yes Social History Home: Single Level Current Living Status: Other Family (lives with son and daughter in law per chart) Pt unable to provide details of home environment ADL-Prior Level of Function Therapy Code Descriptions/Definitions Functional [place] Measure: 0=Not Assessed/NA 4=Minimal Assistance 1=Total Assistance 5=Supervision or Setup 2=Maximal Assistance 6=Modified [place] 3=Moderate Assistance 7=Complete [place] Therapy Quality Codes: 6 Independent with activity with or without an assistive device 5 Patient requires set up or clean up by helper. Patient completes activity by themselves 4 Supervision or touching assist (CGA). [place] provide cues , steadying assist 3 The helper provides less than half the effort to complete the activity 2 The helper provides more than half the effort to complete the activity 1 Dependent. The helper does all the effort to complete an activity 7 Patient refused to complete or attempt activity 9 The patient did not perform the activity before the current illness or injury 88 Not attempted due to Medical conditions or safety concerns Functional Abilities and Goals: Independent: Patient completed the activities by him/herself, with or without an assistive device, with no assistance from a helper. Needed Some Help: Patient needed partial assistance from another person to c omplete activities. Dependent: A helper completed the activities for the patient. Unknown: Not Applicable: Self Care: Unknown Functional Cognition: Unknown DME/Equipment Comments Pt states he used a FWW prior to hospitalization. Pt poor historian, unable to answer specifics of home environment. Occupation: retired Drive Self: No OT Current Status Subjective Pt seen supine in bed, pt no c/o pain. Pt agreeable to OT eval and treat. Mental Status/Objective Patient Orientation: Person Pt states we are in Center, unable to state situation or time. Attachments: IV Current Glasses/Contacts: Yes Hearing Aids: Yes (Pt states he uses hearing aides, none present, pt does not require increased volume) Dentures/Partials: Yes Hand Dominance: Right Upper Extremity ROM AROM WFL BUE Upper Extremity Coordination WFL Upper Extremity Sensation WFL, no c/o tingling Upper Extremity Strength impaired, c/o weakness, general UE= 3/5 good consultant education strength Edema: none noted ADL-Treatment Eating (FIM): 6 (pt able to drink water from straw, dentures) Eating (QC): 6 Grooming (FIM): 5 (pt requires s/u and min cues to initiate grooming tasks.) Oral Hygiene (QC): 5 Bathing (FIM): 3 Shower/Bathe Self (QC): 3 Upper Body Dressing (FIM): 5 (SBA) Upper Body Dressing (QC): 5 Lower Body Dressing (FIM): 5 (SBA during EOB activities- pt able to doff/ don sock) Lower Body Dressing (QC): 4 (SBA) On/Off Footwear (QC): 4 (SBA) Toileting (FIM): 3 Toileting Hygiene (QC): 5 Transfers (B, C, W/C) (FIM): 5 (Sit to stand with use of FWW= SBA for safety) Toilet/Commode Transfer (FIM): 4 (CGA) Toilet Transfer (QC): 4 (CGA) Tub Transfer (FIM): 4 Shower Transfer (FIM): 4 Other Treatments Pt completes evaluation with increased cues and redirection for attention. Pt completes UE exercises with model and cues for positioning, pt requires physical cues to terminate activities, cues for stopping once counting reaches "10". Pt completes UE theraband exercises, unable to comprehend hand out. Pt completes hand squeezes with hand sponge, completes correctly with R hand with verbal cues. Upon request to switch hands, pt begins wiping L hand with hand sponge still held with R hand. When asked for L hand to hold sponge, pt opens L hand and continues wiping hand. Hand over hand assist required to terminate activity and complete hand afloat cryptologic manager with L hand with sponge positioned in hand. Pt speaks of frequently, stating she will be here Saturday. Pt denies desire to sit in chair. Pt states he would like to return to bed, pt requires multiple cues to initiate return to bed. Pt left with call light in reach, all needs met, bed exit alarm set. Education OT Patient Education: Correct positioning, Exercise program, Home exercise program, Modified ADL techniques, Purpose of tx/functional activities, Rehab process, Safety issues, Transfer techniques Teaching Recipient: Patient Teaching Methods: Demonstration, Discussion Response to Teaching: Verbalize Understanding, Return Demonstration OT Short Term Goals Short Term Goals Upper Body Dressing(FIM): 5 Lower Body Dressing(FIM): 6 1=Demonstrate adherence to instructed precautions during ADL tasks. 2=Patient will verbalize/demonstrate understanding of assistive devices/modifications for ADL. 3=Patient will improve strength/tolerance for activity to enable patient to perform ADL's. OT Intermediate Goals Dumpcart Driver Goals Eating (FIM): 6 Eating (QC): 6 Groomin Oral Hygiene (QC): 6 Bathing(FIM): 4 Shower/Bathe Self (QC): 4 Upper Body Dressing(FIM): 6 Upper Body Dressing (QC): 6 Lower Body Dressing(FIM): 6 Lower Body Dressing (QC): 6 On/Off Footwear (QC): 6 Toileting(FIM): 5 Toileting Hygiene (QC): 4 Transfers (B,C,W/C) (FIM): 5 Toilet/Commode Transfer(FIM): 5 Toilet/Commode Transfer (QC): 4 Tub Transfer(FIM): 5 Shower Transfer(FIM): 5 Additional Goals: 1-Demonstrate ADL Tasks, 2-Verbalize Understanding, 3- ImproveStrength/Igor 1=Demonstrate adherence to instructed precautions during ADL tasks. 2=Patient will verbalize/demonstrate understanding of assistive devices/modifications for ADL. 3=Patient will improve strength/tolerance for activity to enable patient to perform ADL's. OT Education/Plan Problem List/Assessment Assessment: Decreased Activ Tolerance, Decreased Safety Aware, Decreased UE Strength, Impaired Cognition, Impaired I ADL's, Impaired Self-Care Skills Discharge Recommendations Plan/Recommendations: Continue POC Comment TBD based on home description per family/ pt Treatment Plan/Plan of Care Treatment,Training & Education: Yes Patient would benefit from OT for education, treatment and training to promote independence in ADL's, mobility, safety and/or upper extremity function for ADL's. Plan of Care: ADL Retraining, Cognitive Retraining, Functional Mobility, UE Funct Exercise/Act Treatment Duration: Jan 16, 2019 Frequency: 5 times per week Estimated Hrs Per Day: .25 hour per day Agreement: Yes Rehab Potential: Fair Time/GCodes Start Time: 12:30 Stop Time: 12:57 Total Time Billed (hr/min): 27 Billed Treatment Time 1 EVM (8), ADL (19) JODIE TREJO OTR Jan 09, 2019 13:07
[2019-01-09] MEDS: D5 1/2 NS W/KCL 20 MEQ/L 1,000 ML IV SCH (16:46)
[2019-01-09 18:00] VITALS: BP 106/60
[2019-01-09] MEDS: LACTOBACILLUS ACIDOPHILUS (PROBIOTIC) CAPSULE PO SCH (18:12)
[2019-01-09] MEDS: DIVALPROEX 250 MG DELAYED RELEASE (DEPAKOTE) TAB PO SCH (20:29)
[2019-01-10 06:10] LABS: HEMOGLOBIN 11.6 G/DL (13.3-17.7); MEAN PLATELET VOLUME 8.4 FL (7.4-10.4); RED CELL DISTRIBUTION WIDTH 14.5 % (10.0-14.5); WHITE BLOOD COUNT 5.9 10^3/uL (4.3-11.0)
[2019-01-10 06:29] LABS: ALBUMIN 2.9 GM/DL (3.2-4.5); BILIRUBIN,TOTAL 0.4 MG/DL (0.1-1.0); CALCIUM 8.1 MG/DL (8.5-10.1); CREATININE SERUM 1.23 MG/DL (0.60-1.30); POTASSIUM 4.5 MMOL/L (3.6-5.0); TOTAL PROTEIN 5.3 GM/DL (6.4-8.2)
[2019-01-10 08:10] VITALS: BP 134/91
[2019-01-10] MEDS: PANTOPRAZOLE 40 MG (PROTONIX) TAB PO SCH (08:56)
[2019-01-10] MEDS: DIVALPROEX 250 MG DELAYED RELEASE (DEPAKOTE) TAB PO SCH ×2 (08:56→21:34)
[2019-01-10] MEDS: AZITHROMYCIN 250 MG TAB (ZITHROMAX) PO SCH (08:56)
[2019-01-10] MEDS: LACTOBACILLUS ACIDOPHILUS (PROBIOTIC) CAPSULE PO SCH ×2 (08:56→17:46)
[2019-01-10] MEDS: cefTRIAXone FOR IV USE 1,000 MG in WATER (STERILE) FOR INJECTION 10 ML IV SCH (08:57)
--- NOTE | 2019-01-10 10:18 | Diagnostic Imaging Report ---
INDICATION: Lethargy and pneumonia. Comparison made with prior examination 01/09/2019. FINDINGS: There is cardiomegaly. There is a persistent right basilar pneumonia. There is no pneumothorax. Mediastinum is unremarkable. Pacemaker overlies left hemithorax. IMPRESSION: Right basilar pneumonia. Cardiomegaly and some central pulmonary venous congestion. Dictated by: Dictated on workstation # [id number]
--- NOTE | 2019-01-10 10:56 | Physical Therapy Progress Note ---
Therapy Progress Note Pt sleeping with every attempt, last attempt, tried x10 minutes to encourage pt to perform and participate, pt adamantly refusing and would not uncover head with blankets. No treatment this date, will continue Saturday. DEBBIE RODRÍGUEZ PTA Jan 10, 2019 10:56
[2019-01-10] MEDS: D5 1/2 NS W/KCL 20 MEQ/L 1,000 ML IV SCH (12:52)
--- NOTE | 2019-01-10 13:41 | Cardiology Progress Note ---
Cardiology SOAP Progress Note Subjective: No cardiac complaints. Objective: I&O/Vital Signs 01/11/19 01/11/19 06:00 09:00 Temp 36.8 Pulse 80 Resp 18 B/P (MAP) 133/76 (95) Pulse Ox 99 96 O2 Delivery Room Air Room Air 01/11/19 00:00 Intake Total 322 ml Output Total 450 ml Balance -128 ml Weight (Pounds): 164 Weight (Ounces): 14.4 Weight (Calculated Kilograms): 74.796916 Constitutional: AAO x 3 Respiratory: chest is bilaterally symmetric, lungs clear to auscultation Cardiovascular: regular rate-rhythm, S1 and S2 Gastrointestional: soft, audible bowel sounds Extremities: no lower extremity edema bilateral Neurologic/Psychiatric: no motor/sensory deficits, alert, normal mood/affect Skin: normal color Results/Procedures: Labs A/P: Assessment/Dx: Pericardial effusion measuring up to 2 cm in thickness seen on CT of 01-05-19 - Echocardiogram of 01-06-19 shows mod pericardial effusion without hemodynamic significance; repeat echo of 01-09-19 essentially unchanged N/V/D/gastroenteritis - managed by Dr Mae Sepsis - managed by Dr Mae Acute on chronic renal insufficiency Progressive memory loss Chronic stable angina - currently not reporting Fall and intracranial bleed in June 2017 for which he remained [facility]: LVEF 40%, LVH with gibson dysfunction, AoV sclerosis, mild MR, RVSP 30 mmHg, small pericard eff w/o tamponade. Echocardiogram of Jan 06, 2019 shows LVEF 40-45% with mod pericardial effusion without hemodynamic signif. Grade 1 diastolic dysfunction. RVSP approx 17mmHg. History of dizziness and lightheadedness with changes in position, likely due to orthostatic hypotension due to antihypertensives, which has improved following reduction in medications. Coronary artery disease with a history of a 2.5 mm bare-metal stent to the right coronary artery on 07/12/[address] Friedman. Last cardiac catheterization was in December 2012. It showed 60 percent distal left main. There was diffuse disease of all coronary vessels. There were up to 80 percent stenoses in the distal left anterior descending and 80-90 percent stenoses in the proximal portion of the obtuse marginal branches. In addition, there was diffuse moderat e disease of the right coronary. The patient received a surgical consultation at [facility] by Dr Leon. He was not found to be an good candidate for coronary bypass surgery. He has been managed medically Hyperlipidemia, currently being treated with statin therapy. Hypertension. History of vertigo for which he has seen Dr. Carpenter and has previously used vestibular exercises. This is currently stable. Ischemic cardiomyopathy with an ejection fraction of 30-35 percent and ant erolateral and apical akinesis at that time cardiac catheterization of December 2012 . Mild carotid arterial disease per ultrasonography of 5-9-19 S/p ICD implantation, functioning normally on interrogation carried out in September 2017 Hypothyroidism - replacement therapy per Dr. Mae Plan: * Pericard eff stable clinically. Conservative therapy per pt and family request * Monitor labs Thank you for your consultation. Please call me if you have any questions. Kym Peck MD, FACP, FACC, FSCAI, FHRS, CCDS Interventional Cardiology Cardiac Electrophysiology Vascular Medicine and Endovascular Interventions Ava PECK MD Jan 10, 2019 13:41
[2019-01-10 17:05] VITALS: BP 121/70
[2019-01-11] MEDS: D5 1/2 NS W/KCL 20 MEQ/L 1,000 ML IV SCH (03:13)
[2019-01-11 06:00] VITALS: BP 133/76
[2019-01-11] MEDS: LACTOBACILLUS ACIDOPHILUS (PROBIOTIC) CAPSULE PO SCH ×3 (06:22→19:28)
[2019-01-11] MEDS: AZITHROMYCIN 250 MG TAB (ZITHROMAX) PO SCH (09:43)
[2019-01-11] MEDS: DIVALPROEX 250 MG DELAYED RELEASE (DEPAKOTE) TAB PO SCH ×2 (09:43→21:10)
[2019-01-11] MEDS: PANTOPRAZOLE 40 MG (PROTONIX) TAB PO SCH (09:44)
[2019-01-11] MEDS: cefTRIAXone FOR IV USE 1,000 MG in WATER (STERILE) FOR INJECTION 10 ML IV SCH (09:44)
[2019-01-11] MEDS ORDERED: HALOPERIDOL 5 MG/ML (HALDOL) AMP IV ONE (11:45)
[2019-01-11] MEDS ORDERED: HALOPERIDOL 5 MG/ML (HALDOL) AMP IV PRN (13:00)
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
--- NOTE | 2019-01-11 13:58 | Cardiology Progress Note ---
Cardiology SOAP Progress Note Subjective: No cardiac complaints. Objective: I&O/Vital Signs 01/11/19 01/11/19 06:00 09:00 Temp 36.8 Pulse 80 Resp 18 B/P (MAP) 133/76 (95) Pulse Ox 99 96 O2 Delivery Room Air Room Air 01/11/19 00:00 Intake Total 322 ml Output Total 450 ml Balance -128 ml Weight (Pounds): 164 Weight (Ounces): 14.4 Weight (Calculated Kilograms): 74.561775 Constitutional: AAO x 3 Respiratory: chest is bilaterally symmetric, lungs clear to auscultation Cardiovascular: regular rate-rhythm, S1 and S2 Gastrointestional: soft, audible bowel sounds Extremities: no lower extremity edema bilateral Neurologic/Psychiatric: no motor/sensory deficits, alert, normal mood/affect Skin: normal color A/P: Assessment/Dx: Pericardial effusion measuring up to 2 cm in thickness seen on CT of 01-05-19 - Echocardiogram of 01-06-19 shows mod pericardial effusion without hemodynamic significance; repeat echo of 01-09-19 essentially unchanged N/V/D/gastroenteritis - managed by Dr Mae Sepsis - managed by Dr Mae Acute on chronic renal insufficiency Progressive memory loss Chronic stable angina - currently not reporting Fall and intracranial bleed in June 2017 for which he remained hospitalized at [facility]: LVEF 40%, LVH with gibson dysfunction, AoV sclerosis, mild MR, RVSP 30 mmHg, small pericard eff w/o tamponade. Echocardiogram of Jan 06, 2019 shows LVEF 40-45% with mod pericardial effusion without hemodynamic signif. Grade 1 diastolic dysfunction. RVSP approx 17mmHg. History of dizziness and lightheadedness with changes in position, likely due to orthostatic hypotension due to antihypertensives, which has improved following reduction in medications. Coronary artery disease with a history of a 2.5 mm bare-metal stent to the right coronary artery on 07/12/[address] Friedman. Last cardiac catheterization was in December 2012. It showed 60 percent distal left main. There was diffuse disease of all coronary vessels. There were up to 80 percent stenoses in the distal left anterior descending and 80-90 percent stenoses in the proximal portion of the obtuse marginal branches. In addition, there was diffuse moderate disease of the right coronary. The patient received a surgical consultation at [facility] by Dr Leon. He was not found to be an good candidate for coronary bypass surgery. He has been managed medically Hyperlipidemia, currently being treated with statin therapy. Hypertension. History of vertigo for which he has seen Dr. Carpenter and has previously used vestibular exercises. This is currently stable. Ischemic cardiomyopathy with an ejection fraction of 30-35 percent and anterolateral and apical akinesis at that time cardiac catheterization of December 2012 . Mild carotid arterial disease per ultrasonography of 5-9-19 S/p ICD implantation, functioning normally on interrogation carried out in September 2017 Hypothyroidism - replacement therapy per Dr. Mae Plan: * Pericard eff stable clinically. Conservative therapy per pt and family request * Monitor labs Thank you for your consultation. Please call me if you have any questions. Kym Peck MD, FACP, FACC, FSCAI, FHRS, CCDS Interventional Cardiology Cardiac Electrophysiology Vascular Medicine and Endovascular Interventions Ava PECK MD Jan 11, 2019 13:58
[2019-01-11 18:40] VITALS: BP 143/89
[2019-01-11] MEDS ORDERED: risperiDONE 0.25 MG (RisperDAL) TAB PO SCH (21:00)
[2019-01-12 06:00] VITALS: BP 91/57
[2019-01-12] MEDS: LACTOBACILLUS ACIDOPHILUS (PROBIOTIC) CAPSULE PO SCH ×2 (06:57→10:35)
[2019-01-12] MEDS ORDERED: RISP0.253 PO ×2 (08:05)
[2019-01-12] MEDS ORDERED: DIVA-74 PO ×2 (08:05)
[2019-01-12] MEDS ORDERED: PANT40TA3 PO ×2 (08:05)
[2019-01-12] MEDS ORDERED: ZINC28PA TOP ×2 (08:05)
[2019-01-12] MEDS ORDERED: AZIT250T12 PO ×2 (08:05)
[2019-01-12] MEDS ORDERED: LACT1CAP7 PO ×2 (08:05)
--- NOTE | 2019-01-12 08:09 | Discharge Inst-Skilled Nursing ---
Discharge Inst-Skilled NF Reconcile Patient Problems Problems Reviewed?: Yes Patient Instructions Patient Problems: PNEUMONIA SEPSIS PERICARDIAL EFFUSION WEAKNESS PROGRESSIVE DEMENTIA HYPOTENSION LACTIC ACIDOSIS ACUTE ON CHRONIC RENAL FAILURE STAGE 3 LEUKOCYTOSIS Goal: GOAL IS HOME WITH HIS SON AND DTR-IN-LAW Consult/Follow Up/Orders Follow Up Appt.: [facility] Skilled NF Admit to: SKILLED NURSING OF FAMILY CHOICE Certification (SNF) I certify that SNF services are required to be given on an inpatient basis because of the above named patient's need for half-way care on a continuing basis for the conditions(s) for which he/she was receiving inpatient hospital services prior to his/her transfer to the SNF. Long Term Facility Order: Nursing Services, Metal Wire Coating Operator-Evaluate & Treat, Physical Therapy-Evaluate & Treat, Speech Language-Evaluate & Treat Oxygen Delivery Method: Room Air Discharge Diet: Regular Diet Daily Activity as Tolerated: Yes Resuscitation Status: Full Code New & Resume Previous Orders Lauri Mae Jan 12, 2019 08:06 Medication List: Active Scripts Active Divalproex Sodium 250 Mg Tablet.dr 250 Mg PO BID Boudreauxs Butt Paste (Zinc Oxide) 28 Gm Oint 0 Gm TOP NEEDED PRN Acidophilus-Pectin Capsule (Lactobacillus Acidophilus/Pect) 1 Each Capsule 2 Each PO TIDWM Pantoprazole Sodium 40 Mg Tablet.dr 40 Mg PO DAILY Risperidone 0.25 Mg Tablet 0.25 Mg PO HS Azithromycin 250 Mg Tablet 250 Mg PO DAILY TYLENOL 500MG PO Q 6 HOURS PRN PAIN OR FEVER OR HEADACHE IBUPROFEN 600MG PO Q 6 HOURS PRN PAIN OR FEVER OR HEADACHE COLACE 100MG PO BID PRN CONSTIPATION My orders: Orders - LAURI MAE MD Attending Discharge Inpt/Inobs (01/12/19 07:53) LAURI MAE MD Jan 12, 2019 08:09
--- NOTE | 2019-01-12 08:19 | Discharge Summary ---
Diagnosis/Chief Complaint Date of Admission Jan 09, 2019 at 09:20 Date of Discharge Discharge Date: Jan 12, 2019 Discharge Time: 1030 Admission Diagnosis Admission Diagnosis PNEUMONIA SEPSIS PERICARDIAL EFFUSION WEAKNESS PROGRESSIVE DEMENTIA HYPOTENSION LACTIC ACIDOSIS ACUTE ON CHRONIC RENAL FAILURE STAGE 3 LEUKOCYTOSIS Discharge Diagnosis PNEUMONIA SEPSIS PERICARDIAL EFFUSION WEAKNESS PROGRESSIVE DEMENTIA HYPOTENSION LACTIC ACIDOSIS ACUTE ON CHRONIC RENAL FAILURE STAGE 3 LEUKOCYTOSIS Reason Hospital Visit PT REPORTS THAT HE IS FEELING BETTER TODAY. HE REPORTS THAT HE DOES NOT HAVE CHEST PAIN, SHORTNESS OF BREATH. HIS DAUGHTER REPORTS THAT HE DOES SEEM TO BE FEELING BETTER TODAY. HE REPORTS THAT HE IS FEELING LIKE HE WANTS TO GO HOME, AND WANTS TO GO OUTSIDE FOR A WHILE. Discharge Summary Consultations CARDIOLOGY Discharge Physical Examination Allergies: Coded Allergies: No Known Drug Allergies (Unverified , 12/05/10) Vitals & I&Os Vital Signs Date Time Temp Pulse Resp B/P (MAP) Pulse Ox O2 Delivery O2 Flow Rate FiO2 01/12/19 06:00 37.2 77 16 91/57 (68) 98 Room Air General Appearance: Alert, Other (ORIENTED TO PERSON, NOT PLACE OR TIME) HEENT: Atraumatic, PERRLA, Mucous Memb Moist/[place] Respiratory: Clear to Auscultation, Normal Air Movement Cardiovascular: Regular Rate Abdominal: Normal Bowel Sounds, Soft, No Tenderness Extremities: No Clubbing Skin: No Rashes, No Breakdown Neuro: Cranial Nerves 3-12 NL Psych/Mental Status: Mental Status NL, Mood NL Hospital Course Was the Problem List Reviewed?: Yes PNEUMONIA SEPSIS PERICARDIAL EFFUSION WEAKNESS PROGRESSIVE DEMENTIA HYPOTENSION LACTIC ACIDOSIS ACUTE ON CHRONIC RENAL FAILURE STAGE 3 LEUKOCYTOSIS PNEUMONIA (SEEN ON CT SCAN - CLEAR ON CXR) WITH SEPSIS - SEPSIS NOW RESOLVED AND HIS FLUID REPLACEMENT PROTOCOL HAS BEEN COMPLETED - STARTED ON PNEUMONIA PROTOCOL WITH ROCEPHIN AND AZITHROMYCIN IV - NOW ON AZITHROMYCIN ORALLY AND CONTINUES WITH IV ROCEPHIN - LAST DOSE OF ROCEPHIN TO BE GIVEN TODAY. 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 RODRIGUEZ'S REPORT HE WOULD NOT RECOMMEND ANY ACUTE TREATMENT FROM A SURGICAL STANDPOINT, HE RECOMMENDS MEDICAL MANAGEMENT ONLY, DUE TO RICO'S AGE AND MENTAL DECLINE. WEAKNESS AND PROGRESSIVE DEMENTIA - AGGRESSIVE BEHAVIOR RESOLVED - PHYSICAL THERAPY STARTED AND OCC THERAPY STARTED WELL - PT TOLERATING BOTH WELL. - DEMENTIA IS SUPPORTIVE CARE ONLY AT THIS TIME. - CONTINUE WITH DEPAKOTE - DOSE INCREASED - CONTINUE WITH THIS REGIMEN - HALDOL WAS GIVEN ON HIS FIRST NIGHT IN THE HOSPITAL, HE NEEDED A DOSE ON SATURDAY NIGHT - PT NOW ON SCHEDULED RISPERDAL WITH IMPROVED MOOD/FUNCTION HYPOTENSION - IMPROVED LACTIC ACIDOSIS - IMPROVED WITH HYDRATION - LACTIC ACIDOSIS RESOLVED ACUTE ON CHRONIC RENAL FAILURE STAGE 3 - IMPROVED WITH IV FLUIDS -- CONTINUE TO MONITOR LABS LEUKOCYTOSIS - IMPROVED WITH HYDRATION. CONTINUING TO PURSUE SHELTER PLACEMENT WAITING ON [facility] TO MAKE DECISION ON TAKING PT SKILLED THERAPY. PT TO HOPEFULLY BE DISCHARGED TO [facility] -THEY ARE WAITING TO MAKE THE DECISION UNTIL THEY FIND OUT ABOUT HIS BEHAVIORS THIS WEEKEND. Discharge Condition at discharge STABLE/IMPROVED FROM ADMISSION Instructions to patient/family Please see electronic discharge instructions given to patient. Discharge Medications Reviewed and agree with Discharge Medication list on patient's Discharge Instruction sheet Clinical Quality Measures DVT/VTE Risk/Contraindication: Risk Factor Score Per Nursin LAURI MORRELL MD Jan 12, 2019 08:19
--- NOTE | 2019-01-12 08:36 | Progress Note - Cardiology ---
Cardiology SO Progress Note Objective: I&O/Vital Signs Weight (Pounds): 164 Weight (Ounces): 14.4 Weight (Calculated Kilograms): 74.897424 Constitutional: AAO x 3 Respiratory: chest is bilaterally symmetric, lungs clear to auscultation Cardiovascular: regular rate-rhythm, S1 and S2 Gastrointestional: soft, audible bowel sounds Extremities: no lower extremity edema bilateral Neurologic/Psychiatric: no motor/sensory deficits, alert, normal mood/affect Skin: normal color A/P: Assessment: Pericardial effusion measuring up to 2 cm in thickness seen on CT of 01-05-19 - Echocardiogram of 01-06-19 shows mod pericardial effusion without hemodynamic significance; repeat echo of 01-09-19 essentially unchanged N/V/D/gastroenteritis - managed by Dr Mae Sepsis - managed by Dr Mae Acute on chronic renal insufficiency Progressive memory loss Chronic stable angina - currently not reporting Fall and intracranial bleed in June 2017 for which he remained [facility] [place] [facility] LVEF 40%, LVH with gibson dysfunction, AoV sclerosis, mild MR, RVSP 30 mmHg, small pericard eff w/o tamponade. Echocardiogram of Jan 06, 2019 shows LVEF 40-45% with mod pericardial effusion without hemodynamic signif. Grade 1 diastolic dysfunction. RVSP approx 17mmHg. History of dizziness and lightheadedness with changes in position, likely due to orthostatic hypotension due to antihypertensives, which has improved following reduction in medications. Coronary artery disease with a history of a 2.5 mm bare-metal stent to the right coronary artery on 07/12/[address] Friedman. Last cardiac catheterization was in December 2012. It showed 60 percent distal left main. There was diffuse disease of all coronary vessels. There were up to 80 percent stenoses in the distal left anterior descending and 80-90 percent stenoses in the proximal portion of the obtuse marginal branches. In addition, there was diffuse moderate disease of the right coronary. The patient received a surgical consultation at [facility] by Dr Leon. He was not found to be an good candidate for coronary bypass surgery. He has been managed medically Hyperlipidemia, currently being treated with statin therapy. Hypertension. History of vertigo for which he has seen Dr. Carpenter and has previously used vestibular exercises. This is currently stable. Ischemic cardiomyopathy with an ejection fraction of 30-35 percent and anterola teral and apical akinesis at that time cardiac catheterization of December 2012 . Mild carotid arterial disease per ultrasonography of 5-9-19 S/p ICD implantation, functioning normally on interrogation carried out in September 2017 Hypothyroidism - replacement therapy per LEO Steiner Jan 12, 2019 08:36
--- NOTE | 2019-01-12 09:39 | Progress Note - Cardiology ---
Cardiology SOAP Progress Note Subjective: Somnolent Does not report symptoms Daughter by bedside. She reports that he has had chronic, intermittent confusion and hallucinations Objective: I&O/Vital Signs 01/12/19 06:00 Temp 37.2 Pulse 77 Resp 16 B/P (MAP) 91/57 (68) Pulse Ox 98 O2 Delivery Room Air 01/12/19 00:00 Intake Total 1000 ml Balance 1000 ml Weight (Pounds): 164 Weight (Ounces): 14.4 Weight (Calculated Kilograms): 74.982531 Constitutional: AAO x 3 Respiratory: chest is bilaterally symmetric, lungs clear to auscultation Cardiovascular: regular rate-rhythm, S1 and S2 Gastrointestional: soft, audible bowel sounds Extremities: no lower extremity edema bilateral Neurologic/Psychiatric: no motor/sensory deficits, alert, normal mood/affect Skin: normal color A/P: Assessment: Pericardial effusion measuring up to 2 cm in thickness seen on CT of 01-05-19 - Echocardiogram of 01-06-19 shows mod pericardial effusion without hemodynamic significance; repeat echo of 01-09-19 essentially unchanged N/V/D/gastroenteritis - managed by Dr Mae Sepsis, improved/resolved - managed by Dr Mae Acute on chronic renal insufficiency, improved Progressive memory loss and intermittent confusion Chronic stable angina - currently not reporting Fall and [facility] bleed [facility] June [facility]: LVEF 40%, LVH with gibson dysfunction, AoV sclerosis, mild MR, RVSP 30 mmHg, small pericard eff w/o tamponade. Echocardiogram of Jan 06, 2019 shows LVEF 40-45% with mod pericardial effusion without hemodynamic signif. Grade 1 diastolic dysfunction. RVSP approx 17mmHg. History of dizziness and lightheadedness with changes in position, likely due to orthostatic hypotension due to antihypertensives, which has improved following reduction in medications. Coronary artery disease with a history of a 2.5 mm bare-metal stent to the right coronary artery on 07/12/[address] Friedman. Last cardiac catheterization was in December 2012. It showed 60 percent distal left main. There was diffuse disease of all coronary vessels. There were up to 80 percent stenoses in the distal left anterior descending and 80-90 percent stenoses in the proximal portion of the obtuse marginal branches. In addition, there was diffuse moderate disease of the right coronary. The patient received a surgical consultation at [facility] by Dr Leon. He was not found to be an good candidate for coronary bypass surgery. He has been managed medically Hyperlipidemia, currently being treated with statin therapy. Hypertension. History of vertigo for which he has seen Dr. Carpenter and has previously used vestibular exercises. This is currently stable. Ischemic cardiomyopathy with an ejection fraction of 30-35 percent and anterolateral and apical akinesis at that time cardiac catheterization of December 2012 . Mild carotid arterial disease per ultrasonography of 5-9-19 S/p ICD implantation, functioning normally on interrogation carried out in May 2018 Hypothyroidism - replacement therapy per Dr. Mae Plan: * Complex management due to multiple comorbidities * I have discussed his CV issues in detail with his daughter * Plan is to continue conservative management * Monitor labs from time to time LAUREN RODRIGUEZ MD FACP FAC CCDS Jan 12, 2019 09:39
[2019-01-12] MEDS: DIVALPROEX 250 MG DELAYED RELEASE (DEPAKOTE) TAB PO SCH (10:35)
[2019-01-12] MEDS: PANTOPRAZOLE 40 MG (PROTONIX) TAB PO SCH (10:35)
[2019-01-12] MEDS: AZITHROMYCIN 250 MG TAB (ZITHROMAX) PO SCH (10:35)
[2019-01-12] MEDS: cefTRIAXone FOR IV USE 1,000 MG in WATER (STERILE) FOR INJECTION 10 ML IV SCH (10:35)
--- NOTE | 2019-01-12 10:58 | Occ Therapy Progress Note ---
Therapy Progress Note Attempted to see pt. [facility] came to interview pt. Will attempt later time. PAN VERDIN Jan 12, 2019 10:58
--- NOTE | 2019-01-12 11:17 | Physical Therapy Daily Note ---
PT Daily Note-Current Subjective Patient states he doesn't feel well today. Agrees to PT. Family present. Mental Status Patient Orientation: Confused Transfers Therapy Code Descriptions/Definitions Functional [place] Measure: 0=Not Assessed/NA 4=Minimal Assistance 1=Total Assistance 5=Supervision or Setup 2=Maximal Assistance 6=Modified [place] 3=Moderate Assistance 7=Complete [place] Therapy Quality Codes: 6 Independent with activity with or without an assistive device 5 Patient requires set up or clean up by helper. Patient completes activity by themselves 4 Supervision or touching assist (CGA). [place] provide cues , steadying assist 3 The helper provides less than half the effort to complete the activity 2 The helper provides more than half the effort to complete the activity 1 Dependent. The helper does all the effort to complete an activity 7 Patient refused to complete or attempt activity 9 The patient did not perform the activity before the current illness or injury 88 Not attempted due to Medical conditions or safety concerns Transfers (B, C, W/C) (FIM): 5 Scootin Rollin Roll Left to Right (QC): 5 Supine to/from Sit: 5 Sit to/from Stand: 5 Sit to Lying (QC): 5 Sit to Stand (QC): 5 Chair/Rof-qa-Ervcn Xfer(QC): 5 Bed to/from Chair: 5 Gait Training Gait (FIM): 5 Distance (FIM): 3=150 ft Distance: 600' Walk 10 feet (QC): 5 Walk 50 ft with 2 Turns(QC): 5 Walk 150 ft (QC): 5 Gait Level of Assist: 5 Gait Assistive Device: FWW slow, steady gait sequence/trunk flexed posture Assessment Patient requires redirection to remain on task and perform gross motor skills. From a PT standpoint, patient would benefit from nursing home facility to ensure safety and improve gross motor skills. PT Retirement Goals Installers Mechanical Goals PT Installers Mechanical Goals Time Frame: Jan 24, 2019 Transfers (B,C,W/C) (FIM): 6 Sit to Lying (QC): 6 Lying-Sitting on Side/Bed(QC): 6 Sit to Stand (QC): 6 Rollin Roll Left to Right (QC): 6 Chair/Aug-ui-Ldeez Xfer(QC): 6 Car Transfer (QC): 6 Does the Patient Walk: Yes Gait (FIM): 6 Gait distance (FIM): 3=150 ft Walk 10 feet (QC): 6 Walk 10ft-Uneven Surface(QC): 6 Walk 50ft with 2 Turns (QC): 6 Walk 150 ft (QC): 6 Gait Level of Assist: 6 Gait Assistive Device: FWW Stairs (FIM): 2 # of Steps: 4 1 Step (curb) (QC): 5 4 Steps (QC): 5 12 Steps (QC): 9 Stairs Level Of Assist: 5 Picking up an Object (QC): 5 PT Plan Treatment/Plan Treatment Plan: Continue Plan of Care Treatment Plan: Bed Mobility, Education, Functional Activity Igor, Functional Strength, Gait, Safety, Therapeutic Exercise, Transfers Treatment Duration: Jan 24, 2019 Frequency: 6 times per week Estimated Hrs Per Day: .25 hour per day Patient and/or Family Agrees t: Yes Time/GCodes Time In: 1005 Time Out: 1020 Total Billed Treatment Time: 15 Total Billed Treatment 1 visit FA 15 min LOLA CULVER PT Jan 12, 2019 11:17
--- NOTE | 2019-01-12 12:58 | Occupational Ther Daily Note ---
OT Current Status-Daily Note Subjective Pt alert, sitting in recliner. Pt agrees to therapy. Pt states, "Are you with the organization? I want to make sure that I don't have to do anything I don't want to do." After questioning pt, the organization in question was [employer]. Mental Status/Objective Patient Orientation: Person Therapy Code Descriptions/Definitions Functional [place] Measure: 0=Not Assessed/NA 4=Minimal Assistance 1=Total Assistance 5=Supervision or Setup 2=Maximal Assistance 6=Modified [place] 3=Moderate Assistance 7=Complete [place] Attachments: IV ADL-Treatment Therapy Code Descriptions/Definitions Functional [place] Measure: 0=Not Assessed/NA 4=Minimal Assistance 1=Total Assistance 5=Supervision or Setup 2=Maximal Assistance 6=Modified [place] 3=Moderate Assistance 7=Complete [place] Therapy Quality Codes: 6 Independent with activity with or without an assistive device 5 Patient requires set up or clean up by helper. Patient completes activity by themselves 4 Supervision or touching assist (CGA). [place] provide cues , steadying assi st 3 The helper provides less than half the effort to complete the activity 2 The helper provides more than half the effort to complete the activity 1 Dependent. The helper does all the effort to complete an activity 7 Patient refused to complete or attempt activity 9 The patient did not perform the activity before the current illness or injury 88 Not attempted due to Medical conditions or safety concerns Other Treatment Light resistance theraband exercises completed required skilled instruction for positioning and correct technique. Pt able to follow 1 step directions to complete 3 exercises 1 set 10 reps. Pt unable to count reps, verbal cues to stop on 10 reps. Pt then began to talk about a step-mother and not accepting her. Family walked in at this time and pt directed questions to them. After therapy, pt sitting in recliner with safety measures in place and call light/phone in reach. Family present in room. All needs met in room. OT Short Term Goals Short Term Goals Upper Body Dressing(FIM): 5 Lower Body Dressing(FIM): 6 1=Demonstrate adherence to instructed precautions during ADL tasks. 2=Patient will verbalize/demonstrate understanding of assistive devices/modifications for ADL. 3=Patient will improve strength/tolerance for activity to enable patient to perform ADL's. OT Music Instructor Goals Music Instructor Goals Eating (FIM): 6 Eating (QC): 6 Groomin Oral Hygiene (QC): 6 Bathing(FIM): 4 Shower/Bathe Self (QC): 4 Upper Body Dressing(FIM): 6 Upper Body Dressing (QC): 6 Lower Body Dressing(FIM): 6 Lower Body Dressing (QC): 6 On/Off Footwear (QC): 6 Toileting(FIM): 5 Toileting Hygiene (QC): 4 Transfers (B,C,W/C) (FIM): 5 Toilet/Commode Transfer(FIM): 5 Toilet/Commode Transfer (QC): 4 Tub Transfer(FIM): 5 Shower Transfer(FIM): 5 Additional Goals: 1-Demonstrate ADL Tasks, 2-Verbalize Understanding, 3- ImproveStrength/Igor 1=Demonstrate adherence to instructed precautions during ADL tasks. 2=Patient will verbalize/demonstrate understanding of assistive devices/modifications for ADL. 3=Patient will improve strength/tolerance for activity to enable patient to perform ADL's. OT Education/Plan Problem List/Assessment Assessment: Decreased Activ Tolerance, Decreased Safety Aware, Decreased UE Strength, Impaired Cognition, Impaired Self-Care Skills Discharge Recommendations Plan/Recommendations: Continue POC Treatment Plan/Plan of Care Patient would benefit from OT for education, treatment and training to promote independence in ADL's, mobility, safety and/or upper extremity function for ADL's. Plan of Care: ADL Retraining, Cognitive Retraining, Functional Mobility, UE Funct Exercise/Act Treatment Duration: Jan 16, 2019 Frequency: 5 times per week Estimated Hrs Per Day: .25 hour per day Agreement: Yes Rehab Potential: Fair Time/GCodes Start Time: 11:35 Stop Time: 11:50 Total Time Billed (hr/min): 15 Billed Treatment Time 1 visit-EX 1 (15 min) PAN VERDIN Jan 12, 2019 12:58
[2019-01-12 13:00] VITALS: BP 122/68
--- NOTE | 2019-01-12 13:30 | NUR ---
RICO BLAIR discharged to [facility] [place]. [facility] notified of discharge and report given to Maryuri BOYCE. RICO BLAIR belongings sent with patient and family. . Vital signs are stable at time of discharge. Condition is stable at time of discharge. Discharge instructions and copies of H&P, discharge summary, physician's order, lab reports, consultation reports, other dictated reports, diagnostic imaging reports, Advance Directive, eMAR, vital signs, intake and output sent with [facility] staff. Patient discharged from [facility] on 01/12/19 at 1345. RICO BLAIR left floor via wheelchair, accompanied by family and [facility] staff. RICO BLAIR and family/DPOA notified and verbalize understanding of discharge to [facility].
--- NOTE | 2019-01-12 13:50 | NUR ---
CM/SS. Patient discharged to new Medicare skilled placement with [facility] via their transport at 1330. CARE Assessment completed with patient, daughter Daina Em and granddaughter Nazia present. [facility], included in packet to accompany patient. Revisited discussion with Daina about pursuing POA and POA-HC, family members plan to get this completed within the next few days. Importance was stressed because of patient's dementia and intermittent agitation and concern that care plan may include referral to a senior behavioral health unit. Lack of authority for consent problematic for admission and future issues that may arise as well. Patient pleasant and cooperative during CARE discussion.
--- NOTE | 2019-01-12 14:14 | Therapy Team Discharge Summary ---
Therapy Discharge Summary Discharge Recommendations Date of Discharge Physical Therapy Patient transferred to [place] for continued care due to increased confusion and continued weakness with decreased mobility. Patient is SBA with all gross motor skills and ambulates with FWW >500'. Patient is highly confused and unsafe to perform activity without supervision. Patient demonstrates good muscle strength, however, does display diminished motor planning due to confusion. PT to continue at [place]. Occupational Therapy Decreased Activ Tolerance, Decreased Safety Aware, Decreased UE Strength, Impaired Cognition, Impaired Self-Care Skills PT Bonderite Operator Goals Bonderite Operator Goals PT Bonderite Operator Goals Time Frame: Jan 24, 2019 Transfers (B,C,W/C) (FIM): 6 Sit to Lying (QC): 6 Lying-Sitting on Side/Bed(QC): 6 Sit to Stand (QC): 6 Rollin Chair/Yca-wa-Nwhya Xfer(QC): 6 Does the Patient Walk: Yes Gait (FIM): 6 Gait distance (FIM): 3=150 ft Walk 50ft with 2 Turns (QC): 6 Walk 150 ft (QC): 6 Gait Level of Assist: 6 Gait Assistive Device: FWW Stairs (FIM): 2 # of Steps: 4 Stairs Level Of Assist: 5 OT Chcf Goals Bonderite Operator Goals Eating (FIM): 6 Eating (QC): 6 Groomin Oral Hygiene (QC): 6 Bathing(FIM): 4 Upper Body Dressing(FIM): 6 Lower Body Dressing(FIM): 6 Toileting(FIM): 5 Toileting Hygiene (QC): 4 Transfers (B,C,W/C) (FIM): 5 Toilet/Commode Transfer(FIM): 5 Toilet/Commode Transfer (QC): 4 Tub Transfer(FIM): 5 Shower Transfer(FIM): 5 Additional Goals: 1-Demonstrate ADL Tasks, 2-Verbalize Understanding, 3- ImproveStrength/Igor 1=Demonstrate adherence to instructed precautions during ADL tasks. 2=Patient will verbalize/demonstrate understanding of assistive devices/modifications for ADL. 3=Patient will improve strength/tolerance for activity to enable patient to perform ADL's. LOLA CULVER PT Jan 12, 2019 14:14
--- NOTE | 2019-01-12 16:01 | Therapy Team Discharge Summary ---
Therapy Discharge Summary Discharge Recommendations Date of Discharge Jan 12, 2019 at 13:45 Occupational Therapy Pt admitted to [facility] unit for decreased functional mobility and ADL function. Upon eval/ admission, pt's FIMs include: eating 6, [place] 5, Bathing 3, UB dress 5, LB dress 5, Toileting 3, Transfers 5, Toilet transfer 4, Tub transfer 4. Treatments focused on education, IND within ADL tasks, functional mobility, safety, and UE functioning. Pt completed UE exercises with cues for initiation and cues for termination. Pt did not meet goals upon d/c from [facility] unit. OT recommendations include continued post-acute OT services to continue to address IND within ADL tasks. Decreased Activ Tolerance, Decreased Safety Aware, Decreased UE Strength, Impaired Cognition, Impaired Self-Care Skills PT Nursing Home Goals Nursing Home Goals PT Data Recovery Planner Goals Time Frame: Jan 24, 2019 Transfers (B,C,W/C) (FIM): 6 Sit to Lying (QC): 6 Lying-Sitting on Side/Bed(QC): 6 Sit to Stand (QC): 6 Rollin Chair/Nzn-uz-Zfqzp Xfer(QC): 6 Does the Patient Walk: Yes Gait (FIM): 6 Gait distance (FIM): 3=150 ft Walk 50ft with 2 Turns (QC): 6 Walk 150 ft (QC): 6 Gait Level of Assist: 6 Gait Assistive Device: FWW Stairs (FIM): 2 # of Steps: 4 Stairs Level Of Assist: 5 OT Data Recovery Planner Goals Nursing Home Goals Eating (FIM): 6 Eating (QC): 6 Groomin Oral Hygiene (QC): 6 Bathing(FIM): 4 Upper Body Dressing(FIM): 6 Lower Body Dressing(FIM): 6 Toileting(FIM): 5 Toileting Hygiene (QC): 4 Transfers (B,C,W/C) (FIM): 5 Toilet/Commode Transfer(FIM): 5 Toilet/Commode Transfer (QC): 4 Tub Transfer(FIM): 5 Shower Transfer(FIM): 5 Additional Goals: 1-Demonstrate ADL Tasks, 2-Verbalize Understanding, 3- ImproveStrength/Igor 1=Demonstrate adherence to instructed precautions during ADL tasks. 2=Patient will verbalize/demonstrate understanding of assistive devices/modifications for ADL. 3=Patient will improve strength/tolerance for activity to enable patient to perform ADL's. JODIE TREJO OTR Jan 12, 2019 16:01
== END 2019-01-12 13:45 | DRG 194 ==
LOC: 4TH 09:20
PROVIDERS: ADMIT Family Medicine; ATTEND Family Medicine
DX: J18.9 Pneumonia, unspecified organism (principal); I12.9 Hypertensive chronic kidney disease with stage 1 through stage 4 chronic kidney disease, or unspecified chronic kidney disease; N18.3 Chronic kidney disease, stage 3 (moderate); I31.3 Pericardial effusion (noninflammatory); F03.91 Unspecified dementia, unspecified severity, with behavioral disturbance; I25.118 Atherosclerotic heart disease of native coronary artery with other forms of angina pectoris; I25.5 Ischemic cardiomyopathy; K52.9 Noninfective gastroenteritis and colitis, unspecified; I34.0 Nonrheumatic mitral (valve) insufficiency; E78.5 Hyperlipidemia, unspecified; E03.9 Hypothyroidism, unspecified; Z95.5 Presence of coronary angioplasty implant and graft; Z95.810 Presence of automatic (implantable) cardiac defibrillator
CPT/HCPCS: 36415; 71045; 80053; 85027